=== PATIENT | male | born 1950 | race Hispanic/Latino ===

== ENCOUNTER 2016-08-27 15:38 | Inpatient (IN) | payer MEDICARE, MEDICAID ==
[~2016-08-27] VITALS: Ht 165.1 cm; Wt 74.6 kg
[2016-08-27] VITALS (7 sets, daily range): BP systolic 97–118; BP diastolic 35–62; PULSE 86–122; RESP 14–24; O2SAT 97–99
[~2016-08-27 15:38] MED LIST: ALBU8.5H2 INH; ASPI-973 PO; CLOP75TA28 PO; CRES20T PO; GLIP2.5T2 PO; GLIP5TAB26 PO; LISI30TA5 PO; METF-413 PO; NIAC10002 PO; NITR0.4T SL; PANT20TA2 PO; RANI300T4 PO; SYMINH INH; TIOT18CA3 INH
[2016-08-27] MEDS ORDERED: 0.9% Sodium Chloride 1,000 ML IV ONE ×4 (15:46→22:05)
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
[2016-08-27 16:15] LABS: BASOPHILS % (AUTO) 0.1 % (0-3); EOSINOPHILS % (AUTO) 0 % (0-5)
[2016-08-27 16:22] LABS: MONOCYTES % (AUTO) 4.6 % (4-12); Mean Corpuscular Hemoglobin 24.2 pg (27.0-35.0); Mean Corpuscular Volume 76.3 fL (81-100); NEUTROPHILS % (AUTO) 92.3 % (40-74); Platelet Count 383 bil/L (150-400)
[2016-08-27 16:43] LABS: TROPONIN T < 0.010 ug/L (0.0-0.011)
--- NOTE | 2016-08-27 16:54 | DRSVH ---
PROCEDURE: X-RAY CHEST ONE VIEW, PORTABLE ([id number]) INDICATIONS: dyspnea TECHNIQUE: One view of the chest was acquired. COMPARISON: [facility], CR, XR CHEST 1VW (PORTABLE), 04/14/2016, 15:08. FINDINGS: Surgical changes and devices: None. Lungs and pleura: No pleural effusions or pneumothorax. Lungs are clear. Mediastinum: Mediastinal contours appear normal. Heart size is normal. Bones and chest wall: No suspicious bony lesions. Overlying soft tissues appear unremarkable. IMPRESSION: No acute pulmonary process. Dictated by: Esther Vazquez M.D. on 08/27/2016 at 16:51 Approved by: Esther Vazquez M.D. on 08/27/2016 at 16:51
[2016-08-27] MEDS ORDERED: Piperacillin-Tazo 3.375 Gm Inj 3.375 GM in Dextrose 5% Minibag Plus 50 ML IV ONE (17:50)
[2016-08-27 18:09] LABS: APPEARANCE,URINE CLEAR (CLEAR,HAZY); COLOR,URINE YELLOW (YELLOW); OCCULT BLOOD,URINE NEGATIVE (NEGATIVE); UROBILINOGEN,URINE NORMAL (NORMAL)
[2016-08-27] MEDS ORDERED: HYDROmorphone 1 mg/mL Inj IVPUSH PRN (19:00)
[2016-08-27] MEDS ORDERED: HYDROmorphone 1 mg/mL Inj IVPUSH ONE (19:00)
--- NOTE | 2016-08-27 19:16 | DRSVH ---
PROCEDURE: CT ABDOMEN AND PELVIS WITH CONTRAST ([id number]) INDICATIONS: severe abd pain TECHNIQUE: After the administration of intravenous contrast, 5 mm thick sections acquired from the diaphragm to the symphysis. 5 mm coronal and sagittal reformats were acquired. For radiation dose reduction, the following was used: automated exposure control, adjustment of mA and/or kV according to patient rachel e. COMPARISON: [facility], CT, CT CHEST ABD PELVIS W CON, 08/18/2015, 23:02. FINDINGS: Image quality: Excellent. ABDOMEN: Lung bases: Consolidation noted in the left lung base which represent atelectasis versus less likely pneumonia or aspiration. Please correlate with clinical and laboratory data. Heart size is normal. Solid organs: Liver and spleen are normal in size and enhancement. Pneumobilia noted possibly relate d to prior sphincterotomy versus infection; please correlate with clinical history. Gallbladder is benz rgically absent. Biliary stent is displaced and now is in the proximal loop of jejunum. Biliary syste m is non dilated. Pancreas enhances normally. Bilateral adrenal nodules not significantly changed co mpared to prior CT scan obtained 08/18/2015. Kidneys demonstrate normal size and enhancement, withou t hydronephrosis. Peritoneum and bowel: Moderate size hiatal hernia is noted. Percutaneous jejunostomy tube is noted. Postsurgical changes compatible with possible Whipple procedure are noted. Inflammatory changes ar e noted adjacent to the second portion of the duodenum and the pancreatic head which could be post pr ocedural, neoplastic or infectious. Nodes and vessels: No retroperitoneal or mesenteric adenopathy by size criteria. Aorta and inferior vena cava are normal in size. Miscellaneous: No ventral hernias. PELVIS: Genitourinary: Bladder wall thickness is normal. Miscellaneous: No inguinal hernias or adenopathy. Bones: No suspicious bony lesions. No vertebral body compression fractures. IMPRESSION: 1. Postsurgical changes compatible with possible Whipple procedure. 2. Inflammatory changes adjacent to the second portion of the duodenum, in the mena hepatis and inv olving the head of the pancreas which could be postsurgical, infectious or less likely neoplastic. P lease correlate clinical data. 3. Pneumobilia likely related to prior sphincterotomy. 4. Biliary stent is displaced and is now positioned in proximal loop of jejunum. No biliary dilatat ion identified in the current study. 5. Heterogeneous enhancement involving the head of the pancreas which could be surgical neoplasm or postsurgical. 6. Left lower lobe consolidation compatible atelectasis versus pneumonia. Please correlate with cli nical and laboratory data. 7. Hiatal hernia. 8. Stable bilateral adrenal nodules. Dictated by: Rose Miller MD, PhD on 08/27/2016 at 19:14 Approved by: Rose Miller MD, PhD on 08/27/2016 at 19:14
[2016-08-27] MEDS ORDERED: Budesonide-Formot 160-4.5 mCg 6.9 Gm Inhaler INHALATION ONE (20:30)
[2016-08-27] MEDS ORDERED: Albuterol-Ipratropium 3 mL Inhalation Solution NEB ONE (20:30)
[2016-08-27] MEDS ORDERED: Fluticasone-Salmererol 250-50 Inhaler INHALATION ONE (20:45)
[2016-08-28] VITALS (12 sets, daily range): BP systolic 110–120; BP diastolic 64–72; PULSE 48–99; RESP 16–20; O2SAT 96–100
[2016-08-28] MEDS ORDERED: Alum-Mag Hydrox-Simeth 30 mL Suspension PO PRN (01:25)
[2016-08-28] MEDS ORDERED: Ondansetron 2 mg/mL 2 mL Inj IVPUSH PRN (01:25)
[2016-08-28] MEDS ORDERED: Polyethylene Glycol (PEG) 17 Gm Powder PO PRN (01:25)
[2016-08-28] MEDS: Albuterol-Ipratropium 3 mL Inhalation Solution NEB PRN ×4 (02:06→23:31)
[2016-08-28] MEDS: Insulin Human REGular 300 Unit/3 mL Inj SUBQ SCH ×4 (02:30→23:31)
[2016-08-28] MEDS: Piperacillin-Tazo 3.375 Gm Inj 3.375 GM in Dextrose 5% Minibag Plus 50 ML IV SCH ×3 (02:49→19:39)
[2016-08-28] MEDS ORDERED: FENT1PAT7 TRANSDERM (03:56)
[2016-08-28] MEDS ORDERED: INSU100V7 SUBQ (03:56)
[2016-08-28] MEDS ORDERED: [UNRECOGNIZED DRUG - CODE] PEG (03:56)
[2016-08-28] MEDS ORDERED: ATOR80TA PO (03:56)
[2016-08-28] MEDS ORDERED: INSLIS SUBQ (03:56)
[2016-08-28] MEDS ORDERED: FLUT1AER IH ×2 (03:56→09:55)
[2016-08-28] MEDS ORDERED: OXYC-474 PO (03:56)
[2016-08-28] MEDS ORDERED: ALBU2.5V4 INHALATION (03:56)
[2016-08-28] MEDS ORDERED: NICO1PAT16 TRANSDERM (03:56)
[2016-08-28] MEDS ORDERED: ZOF8 PO (03:56)
[2016-08-28] MEDS ORDERED: PROM25SU46 RC (03:56)
[2016-08-28] MEDS ORDERED: [UNRECOGNIZED DRUG - OTHER] PEG (03:56)
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
[2016-08-28 05:58] LABS: BASOPHILS % (AUTO) 0.2 % (0-3); EOSINOPHILS % (AUTO) 1.8 % (0-5); MONOCYTES % (AUTO) 7.5 % (4-12); Mean Corpuscular Hemoglobin 24.2 pg (27.0-35.0); Mean Corpuscular Volume 78.4 fL (81-100); Platelet Count 321 bil/L (150-400)
[2016-08-28 06:13] LABS: Magnesium 1.6 mg/dL (1.6-2.6)
--- NOTE | 2016-08-28 06:59 | PCM.CONPHA ---
Subjective Date of Service: Aug 28, 2016 Requesting Provider: Ari Abreu MD shortness of breath History of Present Illness pneumonia Reason for Pharmacy Consult: Vancomycin Dosing Objective Vital Signs Date Time Temp Pulse Resp B/P Pulse Ox O2 Delivery O2 Flow Rate FiO2 08/28/16 05:10 36.6 71 18 115/71 100 Nasal Cannula 2.00 08/28/16 04:47 69 08/28/16 02:09 48 Nasal Cannula 5.00 08/28/16 02:00 Supplement Oxygen 08/28/16 01:16 36.8 80 18 120/72 98 Nasal Cannula 2.00 08/27/16 21:34 86 18 105/62 97 Nasal Cannula 2 08/27/16 21:16 88 16 99 Nasal Cannula 6 08/27/16 20:22 96 18 101/35 99 Nasal Cannula 2 08/27/16 19:27 101 14 99/35 98 Room Air 08/27/16 17:42 117 18 97/47 97 Room Air 08/27/16 16:34 113 19 102/46 97 Nasal Cannula 2 08/27/16 15:40 37.1 122 24 118/57 99 Nasal Cannula 2 Intake and Output 08/26/16 08/27/16 08/28/16 00:00 00:00 00:00 Intake Total 3000 ml Balance 3000 ml Weight (Kilograms): 74.600 Height (Feet): 5 Height (Inches): 5.00 Test 08/27/16 16:02 08/27/16 17:50 08/27/16 19:13 08/27/16 22:27 D-Dimer 3.2mg/L (<0.50) Troponin T < 0.010ug/L (0.0-0.011) Pro-B-Type Natriuretic Peptide 176.1pg/mL (0-376) Procalcitonin 0.35ng/mL (See Comment) Hold Rodas Top Tube Received (Received) Urine Color Yellow (YELLOW) Urine Appearance Clear (CLEAR,HAZY) Urine pH 6.0 (5.0-8.0) Urine Specific Purvis 1.010 (1.003-1.035) Urine Protein Negativemg/dL (NEG,TRACE) Urine Glucose (UA) Negativemg/dL (NEGATIVE) Urine Ketones Negativemg/dL (NEGATIVE) Urine Occult Blood Negative (NEGATIVE) Urine Nitrite Negative (NEGATIVE) Urine Bilirubin Negative (NEGATIVE) Urine Urobilinogen Normalmg/dL (NORMAL) Urine Leukocyte Esterase Negative (NEGATIVE) Urine RBC 0-2/hpf (0-2) Urine WBC 0-5/hpf (0-5) Urine Epithelial Cells Few/hpf (NONE-MOD) Urine Crystals None seen (NONE SEEN) Urine Bacteria None/hpf (NONE-FEW) Urine Hyaline Casts None/lpf (NONE) Urine Granular Casts None seen (NONE SEEN) Urine Waxy Casts None seen (NONE SEEN) Urine Red Blood Cell Casts None seen (NONE SEEN) Urine White Blood Cell Casts None seen (NONE SEEN) Urine Mucus None seen (None Seen) Urine Trichomonas None seen (NONE SEEN) Urine Yeast None (NONE SEEN) Urinalysis Comment None Urine Culture Reflexed Not indicated Lipase 10U/L (13-60) Lactic Acid Level 0.6mmol/L (0.4-2.0) Test 08/28/16 04:55 White Blood Count 15.2th/mm3 (3.8-10.1) Red Blood Count 3.47mil/mm3 (4.40-5.80) Hemoglobin 8.4g/dL (13.8-17.2) Hematocrit 27.2% (41.0-50.0) Mean Corpuscular Volume 78.4fL (81-100) Mean Corpuscular Hemoglobin 24.2pg (27.0-35.0) Mean Corpuscular Hemoglobin Concent 30.9% (32.0-37.0) Red Cell Distribution Width 17.5% (12.3-15.4) Platelet Count 321bil/L (150-400) Neutrophils (%) (Auto) 78.0% (40-74) Lymphocytes (%) (Auto) 12.3% (14-46) Monocytes (%) (Auto) 7.5% (4-12) Eosinophils (%) (Auto) 1.8% (0-5) Basophils (%) (Auto) 0.2% (0-3) Sodium Level 141mEq/L (134-144) Potassium Level 3.5mEq/L (3.5-5.2) Chloride Level 106mEq/L (97-108) Carbon Dioxide Level 23mmol/L (18-29) Blood Urea Nitrogen 11mg/dL (8-27) Creatinine 0.54mg/dL (0.76-1.27) Estimat Glomerular Filtration Rate 161mL/min (>59) Glucose Level 137mg/dL (60-99) Calcium Level 8.5mg/dL (8.5-10.1) Magnesium Level 1.6mg/dL (1.6-2.6) Total Bilirubin 0.3mg/dL (0.0-1.2) Aspartate Amino Transf (AST/SGOT) 24U/L (0-50) Alanine Aminotransferase (ALT/SGPT) 24U/L (0-44) Alkaline Phosphatase 113U/L (25-160) Total Protein 5.1g/dL (6.4-8.4) Albumin 2.5g/dL (3.4-5.0) Assessment/Plan Assessment/Plan A/ - 66 y/o male patient admitted in for sepsis/pneumonia and required Vancomycin therapy for empirical coverage - Afebrile, WBC: 15.2 (25.1 at admission), blood cultures: pending - Current wt; 74.6 kg, ht: 165 cm, SCr: 0.54 mg/dL, estimated clearance (ABW ) ~ 113 ml/hr, t1/2 ~ 7 hrs - Received Vancomycin 1.5g iv once, comitant antibiotic: Zosyn - Target trough: 15-20 P/ - Give Vancomycin 1G iv q8h. Trough level ordered prior to 4th dose @0120 on 08/29. This regimen expected to produce a trough around 17. Pharmacy will continue to follow and make necessary adjustment according to patient's clinical status and labs result Thank you for consulting clinical pharmacy Grady Agee [facility], PharmD Bernice Agee Aug 28, 2016 06:59
--- NOTE | 2016-08-28 07:23 | NUR ---
Admit Pt arrived from ER to [facility] (PCC status) approx. at 0100. Admission assessment and screening completed. Med-rec updated. Pt stated family will bring home CPAP in am. POC discussed and reviewed with pt. He verbalizes understanding. VSS. No overt complications noted.
[2016-08-28] MEDS ORDERED: glipiZIDE 2.5 mg ER24 Tablet PO SCH (08:30)
[2016-08-28] MEDS: Vancomycin Dose per Pharmacist XX SCH (08:30)
[2016-08-28] MEDS: Pantoprazole 20 mg ER24 Tablet PO SCH ×2 (08:40→20:38)
[2016-08-28] MEDS: Fluticasone-Salmeterol 500-50 Inhaler INHALATION SCH ×2 (08:41→20:38)
[2016-08-28] MEDS: Tiotropium 18mcg/Cap 5 Capsule Inhaler Kit INHALATION SCH (08:41)
[2016-08-28] MEDS: Vancomycin Inj 1,000 MG in IV Premix 1 EACH IV SCH ×2 (11:10→19:39)
--- NOTE | 2016-08-28 14:50 | NUR ---
NUTRITION ASSESSMENT Assess: 66 yo M w/ sepsis and pneumonia. Pt with G tube in place and is partially dependent on tube feeds to meet nutrient needs. Pt on nocturnal feeding and takes PO oral during the day. Pt is not able to eat very much at one time d/t early satiety. Wt down 9.5 kg since previous admission in March. PMHx: Opioid dependence, NH x2, DM 2, Pancreatic cancer, Bilateral carotid artery stenosis, Kidney stones, COPD, HLD, GERD, HTN LABS: Reviewed. Cr 0.54, Glu 137, Albumin 2.5, Lipase 10 MEDICATIONS: Reviewed. DIET: Heart Healthy/Consistent Carb, No PO recorded HOME TF: Glucerna 1.2 @ 55 ml/hr (7710-5540) which provides 528 kcal/d and 27 g/d protein meeting ~30% of est needs. NUTRITION FOCUSED PHYSICAL ASSESSMENT: GI symptoms/stool: No BM recordedBraden: 21 Skin integrity: No issues reported Overall Appearance: Overweight man sitting in bed - no obvious signs of wasting ANTHROPOMETRICS: Current Wt: 74.6 kg BMI: 27.4 kg/z6Dpnxe Wt: 74.6 kg IBW: 61.8 kgRecent wt changes: 9.5 kg wt loss x4.5 months (11 % = significant) ESTIMATED NEEDS: Calories: 1965-0383 kcal/d (25-30 kcal/kg/d) Protein: 75-115 g/d (1-1.5 g/kg/d) Fluids: 8202-6979 ml/d (25-30 ml/kg/d) NUTRITION DIAGNOSIS: 1) Inability to meet nutrient needs orally as evidenced by need for supplemental TFs. INTERVENTION: 1) Glucerna 1.2 is not currently on hospital formulary and will be substituted w/ Vital 1.5 (Vital 1.5 w/ 187 g CHO per L vs Jevity 1.5 w/ 215 g CHO per L) 2) Recommend initiating nocturnal feeding w/ Vital 1.5 @ 30 ml/hr to run from 7807-1366. Once pt tolerating, recommend advancing 10 ml q 4 hrs to goal rate of 60 ml/hr + 40 ml H2O q 4 hr providing 900 kcal/d, 41 g/d protein, and 540 ml/d H2O, meeting ~50% of est needs. 3) Increasing calories/protein in TF regimen from his regimen at [facility] d/t significant wt loss and likelihood that pt is not meeting his est needs. 4) Will send Glucerna TID MONITOR/EVALUATE: PO intake, TF start/tolerance, Labs, Wt, GI, Nutrition status, POC. Will follow per high nutrition risk guidelines.
--- NOTE | 2016-08-28 17:03 | NUR ---
Social Work Initial Assessment Data & Assesment: EMR. See Initial Assessment. Global Sales Director met with patient and patient's brother, Larry Abbasi-[phone], to discuss discharge planning and SW role reviewed. Patient does not have a PCP. Patient's insurance is Medicare and [facility] as secondary. Patient reports that he was independent with ADL's prior to admission. Patient does not have SNF or HH. Patient has a cane, walker and WC. Patient plans to discharge home. Patient does not have any current needs. SW will continue to follow. Plan: Patient will return home with no needs at the current time. computer networker will continue to follow. Germain Lucio LMSW, [facility] Addendum: 08/28/16 at 1710 by GERMAIN LUCIO Amended: Links added.
--- NOTE | 2016-08-28 18:31 | PCM.PNMED ---
Subjective Date of Service Aug 28, 2016 Subjective Patient resting comfortably in bed. He is on 2 L of oxygen. He does not use oxygen normally at home. Apparently his had some kind of a upper respiratory infection. Exam Vital Signs Vital Sign - Last Date Time Temp Pulse Resp B/P Pulse Ox O2 Delivery O2 Flow Rate FiO2 08/28/16 17:02 82 18 96 Nasal Cannula 2.00 08/28/16 15:48 36.6 110/69 Intake and Output 08/27/16 08/27/16 08/28/16 Cumulative From/Thru 15:00 23:00 07:00 08/27/16 15:40 - 08/28/16 05:43 Intake Total 3000 ml 583 ml 3583 ml Balance 3000 ml 583 ml 3583 ml Intake IV Total 3000 ml 583 ml 3583 ml Exam General: Alert, Oriented X3, NAD Head: Normocephalic, atraumatic Eyes: EPIFANIO, EOMI, no scleral Icterus Chest: Coarse breath sounds throughout, no wheezing Heart: Regular rate and rhythm. Normal S1, S2, no murmurs noted Abdomen: soft, non-tender. Bowel sounds are normoactive. No guarding or rebound. Extremities: no cyanosis, clubbing or edema. IVs and Medications Medications Reviewed: Medications were reviewed in detail Lab and Diagnostics Result Diagram: 08/28/1645408/28/16454 X-Rays, CTs and MRIs X-Ray Chest Interpretation Chest Xray Interpretation: IMPRESSION: No acute pulmonary process. Ct scan IMPRESSION: 1. Postsurgical changes compatible with possible Whipple procedure. 2. Inflammatory changes adjacent to the second portion of the duodenum, in the mena hepatis and involving the head of the pancreas which could be postsurgical , infectious or less likely neoplastic. Please correlate clinical data. 3. Pneumobilia likely related to prior sphincterotomy. 4. Biliary stent is displaced and is now positioned in proximal loop of jejunum. No biliary dilatation identified in the current study. 5. Heterogeneous enhancement involving the head of the pancreas which could be surgical neoplasm or postsurgical. 6. Left lower lobe consolidation compatible atelectasis versus pneumonia. Please correlate with clinical and laboratory data. 7. Hiatal hernia. 8. Stable bilateral adrenal nodules. Assessment & Plan Patient is a 66 year old male with a pmh of pancreatic cancer, diabetes mellitus , hypertension, and GERD that is presenting with a 2 day history of malaise and shortness of breath. Patient is seen to have significant leukocytosis and atelectasis. Hypoxemic Respiratory failure: -Presumed due to HCAP pneumonia, being treated empirically with vancomycin and Zosyn. -Leukocytosis improving -Continue supplemental oxygenation. He does not use O2 at home -Continue aggressive pulmonary toilet -I will go ahead and check a PCR respiratory panel Pancreatic Ca sp whipple - Patient had a modified whipple 2 weeks ago - Has ongoing unchanged abdominal pain as reasonably expected postoperatively - Pt was getting tube feeds as well as po meals while in the [facility] -If he has a change in his condition, may consider transferring to [facility]. CAD - will c/w asa and plavix Hypertension - will hold bp meds for the time being - once patient returns to steady state will slowly reintroduce lisinopril Diabetes mellitus -Continue sliding scale insulin. CODE STATUS: Full code DVT prophylaxis: SCDs Disposition: PT consulted, suggesting he could possibly return home when medically stable. Tarik Sharma DO Aug 28, 2016 18:31
--- NOTE | 2016-08-28 19:01 | DRSVH ---
PROCEDURE: CT ANGIO CHEST PULMONARY EMBOLISM ([id number]) INDICATIONS: shock, hypoxia, post op dyspnea TECHNIQUE: After the administration of intravenous contrast, 2 mm thick sections acquired from the pulmonary api emma to the posterior costophrenic angles. 3-dimensional maximum intensity projection (MIP) coronal a nd sagittal reformats were then acquired through the thorax. For radiation dose reduction, the follo wing was used: automated exposure control, adjustment of mA and/or kV according to patient size. COMPARISON: None. FINDINGS: Image quality: Excellent. Pulmonary arteries: Pulmonary arteries are normal in size, and demonstrate no intraluminal filling d efects to suggest central pulmonary embolism. Lungs and pleura: There is airspace disease at the left base consistent with pneumonia. There may be minimal airspace disease posteriorly at the right base.. No pleural effusions or pneumothorax. Cent ral and peripheral airways are patent. Mediastinum: Heart size is normal, without pericardial effusion. No mediastinal or hilar adenopathy . Thoracic aorta is normal in caliber and enhancement. Esophagus is normal in caliber, but a modera te-sized hiatal hernia. Bones and chest wall: No suspicious bony lesions. Ribs and thoracic spine appear intact throughout. Thyroid gland is within normal limits.. No axillary or supraclavicular adenopathy. Bilateral gyne comastia is noted. Abdomen: Visualized upper abdominal solid organs appear normal in the early arterial phase of enhanc ement. IMPRESSION: 1. No evidence for pulmonary embolus. Aorta and great vessels do not show any evidence of aneurysm or dissection 2. Left lower lobe moderate to prominent patchy areas of consolidation in the basilar segments. Dictated by: Nacho Victor M.D. on 08/28/2016 at 18:59 , results were called to Dr. Sharma. Approved by: Nacho Victor M.D. on 08/28/2016 at 18:59
[2016-08-29] VITALS (10 sets, daily range): BP systolic 107–125; BP diastolic 62–73; PULSE 68–97; RESP 16–22; O2SAT 95–100
[2016-08-29] MEDS ORDERED: Vancomycin Serum Trough XX ONE ×2 (01:30→10:00)
[2016-08-29] MEDS: Insulin Human REGular 300 Unit/3 mL Inj SUBQ SCH ×4 (02:30→20:26)
[2016-08-29] MEDS: Piperacillin-Tazo 3.375 Gm Inj 3.375 GM in Dextrose 5% Minibag Plus 50 ML IV SCH ×3 (03:04→18:31)
--- NOTE | 2016-08-29 03:10 | PCM.PHAPRO ---
Progress Date of Service: Aug 29, 2016 Requesting Provider: Ari Abreu MD shortness of breath Sepsis/pneu A/ - 66 y/o male patient has been receiving 3 doses of Vancomycin (1.5G loading dose, 1g iv q8h), concurrent with Zosyn for empirical treatment for sepsis and suspected pneumonia - Blood cultures showed no growth after 24hour, MRSA screen is pending - Last 24 hours, all Vancomycin doses given an hour late than scheduled, trough drawn on time. However, patient reported little appetite and no IVF. Per night nurse, patient is planned to have NG tube placement in am today. Poor output could be the contributory factor to unexpected high trough @27.5. P/ - Hold Vancomycin dose tonight. The new regimen will follow after result of random trough level @1000 today fall under 20. Pharmacy will continue to follow and watch closely the renal clearance. Grady Agee, PharmD, [facility] Bernice Agee Aug 29, 2016 03:09
--- NOTE | 2016-08-29 06:33 | NUR ---
Labs Patient refusing am labs. States he does not want to be poked with needles this early and that they had already poked him once before. After education and discussion with patient he is agreeable to having am labs drawn with his 10am vanco trough. Will continue to educate and encourage cooperation with care.
[2016-08-29] MEDS: Fluticasone-Salmeterol 500-50 Inhaler INHALATION SCH ×2 (08:14→20:11)
[2016-08-29] MEDS: Vancomycin Dose per Pharmacist XX SCH (08:30)
[2016-08-29] MEDS: Pantoprazole 20 mg ER24 Tablet PO SCH ×2 (09:04→20:10)
[2016-08-29] MEDS: Tiotropium 18mcg/Cap 5 Capsule Inhaler Kit INHALATION SCH (09:04)
[2016-08-29 11:44] LABS: BASOPHILS % (AUTO) 0.2 % (0-3); EOSINOPHILS % (AUTO) 3.9 % (0-5); MONOCYTES % (AUTO) 6.3 % (4-12); Mean Corpuscular Hemoglobin 24.3 pg (27.0-35.0); Mean Corpuscular Volume 76.7 fL (81-100); NEUTROPHILS % (AUTO) 79.9 % (40-74); Platelet Count 317 bil/L (150-400)
--- NOTE | 2016-08-29 12:23 | PCM.PHAPRO ---
Progress Vancomycin Management by Pharmacy: -pt's trough level returned supratherapeutic at 27.5 prior to 4th dose (0130 on 08/29) on a regimen of Vancomycin 1gm iv [id number] -random level was redrawn ~ 10 am this morning and resulted as 15.2 -Plan: new dose/frequency to begin now as Vancomycin 1.25gm iv [id number] () trough level to be ordered prior to 4th dose on 08/31 at 0030 Teresa Burgos [facility] Aug 29, 2016 12:23
[2016-08-29] MEDS: Albuterol-Ipratropium 3 mL Inhalation Solution NEB PRN ×2 (12:40→19:29)
[2016-08-29] MEDS: Mupirocin 2% 22 Gm Ointment NASAL SCH ×2 (16:30→20:10)
--- NOTE | 2016-08-29 16:55 | PCM.PNMED ---
Subjective Date of Service Aug 29, 2016 Subjective Still requiring oxygen today. He denies any chest pain or excessive shortness of breath. No nausea or vomiting, diarrhea or constipation. Exam Vital Signs Vital Sign - Last Date Time Temp Pulse Resp B/P Pulse Ox O2 Delivery O2 Flow Rate FiO2 08/29/16 14:15 36.7 90 18 116/65 95 Nasal Cannula 2.00 Intake and Output 08/28/16 08/28/16 08/29/16 Cumulative From/Thru 15:00 23:00 07:00 08/27/16 15:40 - 08/29/16 06:56 Intake Total 1217 ml 400 ml 5200 ml Output Total 800 ml 900 ml 1700 ml Balance 417 ml -500 ml 3500 ml Intake Oral 770 ml 400 ml 1170 ml IV Total 447 ml 4030 ml Output Urine Total 800 ml 900 ml 1700 ml # Voids 2 2 Exam General: Alert, Oriented X3, NAD Head: Normocephalic, atraumatic Eyes: EPIFANIO, EOMI, no scleral Icterus Chest: clear to auscultation B/L, no wheezing rales or rhonchi Heart: Regular rate and rhythm. Normal S1, S2, no murmurs noted Abdomen: Mild abdominal pain to palpation, soft. Bowel sounds are normoactive. No guarding or rebound. Extremities: no cyanosis, clubbing or edema. IVs and Medications Medications Reviewed: Medications were reviewed in detail Lab and Diagnostics Result Diagram: 08/29/16 1059 08/29/16 1059 X-Rays, CTs and MRIs X-Ray Chest Interpretation Chest Xray Interpretation: IMPRESSION: No acute pulmonary process. Ct scan IMPRESSION: 1. Postsurgical changes compatible with possible Whipple procedure. 2. Inflammatory changes adjacent to the second portion of the duodenum, in the mena hepatis and involving the head of the pancreas which could be postsurgical , infectious or less likely neoplastic. Please correlate clinical data. 3. Pneumobilia likely related to prior sphincterotomy. 4. Biliary stent is displaced and is now positioned in proximal loop of jejunum. No biliary dilatation identified in the current study. 5. Heterogeneous enhancement involving the head of the pancreas which could be surgical neoplasm or postsurgical. 6. Left lower lobe consolidation compatible atelectasis versus pneumonia. Please correlate with clinical and laboratory data. 7. Hiatal hernia. 8. Stable bilateral adrenal nodules. Assessment & Plan Patient is a 66 year old male with a pmh of pancreatic cancer, diabetes mellitus , hypertension, and GERD that is presenting with a 2 day history of malaise and shortness of breath. Patient is seen to have significant leukocytosis and atelectasis. Hypoxemic Respiratory failure: -Presumed due to HCAP pneumonia, being treated empirically with vancomycin and Zosyn. -Leukocytosis improving -Continue supplemental oxygenation. He does not use O2 at home -Continue aggressive pulmonary toilet MRSA screen positive. -We will give him some mupirocin ointment nasally. Pancreatic Ca sp whipple - Patient had a modified whipple 2 weeks ago - Has ongoing unchanged abdominal pain as reasonably expected postoperatively - Pt was getting tube feeds as well as po meals while in the [facility] -If he has a change in his condition, may consider transferring to [facility]. CAD - will c/w asa and plavix Hypertension - will hold bp meds for the time being - once patient returns to steady state will slowly reintroduce lisinopril Diabetes mellitus -Continue sliding scale insulin. CODE STATUS: Full code DVT prophylaxis: SCDs Disposition: PT consulted, suggesting he could possibly return home when medically stable. Tarik Sharma DO Aug 29, 2016 16:55
[2016-08-30] MEDS ORDERED: 0.9% Sodium Chloride 250 ML ONE (00:40)
--- NOTE | 2016-08-30 02:00 | NUR ---
SKIN PATIENT CONCERNED. HAS BLEEDING FROM PRESUMED LOVENOX INJECTION SITE. APPLIED GAUZE AND TELFA. NO FURTHER BLEEDING. WILL MONITOR.
[2016-08-30] MEDS: Insulin Human REGular 300 Unit/3 mL Inj SUBQ SCH ×4 (02:30→20:23)
[2016-08-30] MEDS: Piperacillin-Tazo 3.375 Gm Inj 3.375 GM in Dextrose 5% Minibag Plus 50 ML IV SCH ×3 (02:37→18:31)
[2016-08-30] MEDS: Albuterol-Ipratropium 3 mL Inhalation Solution NEB PRN ×2 (02:39→15:32)
[2016-08-30 02:41] VITALS: PULSE 71; RESP 20; O2SAT 99
--- NOTE | 2016-08-30 05:00 | NUR ---
TUBE FEED PATIENT TOLERATED TUBE FEED. RATE 50ML AND HOUR WITH 40ML FREE WATER FLUSH EVERY FOUR HOURS. ZERO RESIDUAL.
[2016-08-30 05:28] VITALS: BP 119/66; PULSE 72; RESP 18; O2SAT 98
[2016-08-30 05:45] LABS: BASOPHILS % (AUTO) 0.3 % (0-3); EOSINOPHILS % (AUTO) 3.3 % (0-5); MONOCYTES % (AUTO) 7.1 % (4-12); Mean Corpuscular Hemoglobin 24.1 pg (27.0-35.0); Mean Corpuscular Volume 76.5 fL (81-100); NEUTROPHILS % (AUTO) 72.6 % (40-74); Platelet Count 316 bil/L (150-400)
[2016-08-30] MEDS: Fluticasone-Salmeterol 500-50 Inhaler INHALATION SCH ×2 (08:02→20:13)
[2016-08-30] MEDS: Tiotropium 18mcg/Cap 5 Capsule Inhaler Kit INHALATION SCH (08:02)
[2016-08-30] MEDS: Mupirocin 2% 22 Gm Ointment NASAL SCH ×2 (08:02→20:13)
[2016-08-30] MEDS: Vancomycin Dose per Pharmacist XX SCH (08:03)
[2016-08-30] MEDS: Pantoprazole 20 mg ER24 Tablet PO SCH ×2 (08:03→20:13)
[2016-08-30 15:01] VITALS: BP 127/64; PULSE 64; RESP 18; O2SAT 98
--- NOTE | 2016-08-30 15:06 | NUR ---
Chest Pain Called into room as patient states he is having chest pain. pt states that he is having right sided mid nipple line chest pain at rest. Pt states that its an 10/10 pain, does not radiate to neck or jaw or arms. No SOB, No lightheadedness or dizziness, pt is not diaphoretic. Pt states it hurts more when he coughs or takes a deep breathe in. Pt states that this has been going on intermittently at home for the past 2 weeks since his WHIPLE surgery. VSS. Pt states that his chest pain is decreasing slowly as I am assessing his chest pain. MD notified and aware. Called for EKG
[2016-08-30 15:33] VITALS: PULSE 77; RESP 20; O2SAT 95
--- NOTE | 2016-08-30 15:39 | NUR ---
Social Work: Continued Discharge Planning: Data & Assessment: Dispute Coordinator spoke with [facility] and they confirmed that the patient was a resident there prior to coming into the hospital and that he is able to return when discharged. SW spoke with patient and the patient states that he does want to return to [facility] when discharged. Dispute Coordinator gave [facility]. Social Work will continue to follow patient. Plan: Patient likely to discharge to [facility] when medically stable. SW will continue to follow and assist patient throughout stay. Angelia Egan, ANDREWS, ACM
--- NOTE | 2016-08-30 16:59 | PCM.PNMED ---
Subjective Date of Service Aug 30, 2016 Subjective says overall feeling better. denies any new issues/complaints Exam Vital Signs Vital Sign - Last Date Time Temp Pulse Resp B/P Pulse Ox O2 Delivery O2 Flow Rate FiO2 08/30/16 15:33 77 20 95 Room Air 08/30/16 15:01 36.8 127/64 08/29/16 17:00 2.00 Intake and Output 08/29/16 08/29/16 08/30/16 Cumulative From/Thru 15:00 23:00 07:00 08/27/16 15:40 - 08/30/16 06:21 Intake Total 1274 ml 1299 ml 7773 ml Output Total 350 ml 1100 ml 3150 ml Balance 924 ml 199 ml 4623 ml Intake Oral 660 ml 400 ml 2230 ml IV Total 614 ml 395 ml 5039 ml Tube Feeding 389 ml 389 ml Tube Irrigant 115 ml 115 ml Output Urine Total 350 ml 1100 ml 3150 ml Gastric Drainage Total 0 ml 0 ml # Voids 1 3 # Bowel Movements 1 1 General: Cooperative Eyes: Scleral Anicteric Mouth: Mucous Membr Moist/Dane Neck: Supple Chest & Lungs: Chest Wall Normal, Coarse breath sounds (mild and bibasilar) Cardiovascular: Regular Rate/Rhythm Abdomen: Non-tender, Non-distended, Normoactive bowel tones, Soft, Other ( dressing on lower abdomen at site of recent Lovenox shot) Extremities: No cyanosis/clubbing/edma bilat, Normal bilaterally, Generalized Edema, Clubbing Neurological: Grossly Neurologically Intact, Normal Speech IVs and Medications Medications Reviewed: Medications were reviewed in detail Lab and Diagnostics Result Diagram: 08/30/16 0532 08/30/16 0532 X-Rays, CTs and MRIs X-Ray Chest Interpretation Chest Xray Interpretation: IMPRESSION: No acute pulmonary process. Ct scan IMPRESSION: 1. Postsurgical changes compatible with possible Whipple procedure. 2. Inflammatory changes adjacent to the second portion of the duodenum, in the mena hepatis and involving the head of the pancreas which could be postsurgical , infectious or less likely neoplastic. Please correlate clinical data. 3. Pneumobilia likely related to prior sphincterotomy. 4. Biliary stent is displaced and is now positioned in proximal loop of jejunum. No biliary dilatation identified in the current study. 5. Heterogeneous enhancement involving the head of the pancreas which could be surgical neoplasm or postsurgical. 6. Left lower lobe consolidation compatible atelectasis versus pneumonia. Please correlate with clinical and laboratory data. 7. Hiatal hernia. 8. Stable bilateral adrenal nodules. Assessment & Plan 66 year old male with a pmh of pancreatic cancer, diabetes mellitus, hypertension, and GERD that is presenting with a 2 day history of malaise and shortness of breath. # Acute hypoxemic respiratory failure presumed due to acute pneumonia. poa. - Had recent stay at SNF and MRSA screen is positive - clinically improving on current broad Abx - c/w empiric Vancomycin and Zosyn - ID Consult for further recs regarding Abx choice upon discharge soon # acute Leukocytosis. poa. 2ndry to above. resolved # MRSA screen positive. - mupirocin ointment nasally. # Pancreatic CA s/p Whipple procedure about 1-2 months ago - was getting tube feeds as well as po meals while in the senior living - further f/u w/ surgeons at [facility] - will need to be set up with PCP upon discharge from this hospitalization as well. # History of CAD. presumed stable - c/w asa and plavix # Hypertension. stable. - continue to hold bp meds for the time being - once patient returns to steady state will slowly reintroduce lisinopril # Diabetes mellitus - Continue sliding scale insulin. - Resume home dose Lantus when increased PO intake Dispo: 1-2 days Time spent 35 min Hernan Beckford Aug 30, 2016 16:59
[2016-08-30 21:25] VITALS: BP 123/78; PULSE 72; RESP 20; O2SAT 97
[2016-08-31] VITALS (7 sets, daily range): BP systolic 105–137; BP diastolic 56–71; PULSE 52–89; RESP 17–20; O2SAT 97–99
[2016-08-31] MEDS ORDERED: Vancomycin Serum Trough XX ONE ×2 (00:30→12:00)
[2016-08-31] MEDS: Insulin Human REGular 300 Unit/3 mL Inj SUBQ SCH ×4 (00:32→20:30)
[2016-08-31] MEDS: Piperacillin-Tazo 3.375 Gm Inj 3.375 GM in Dextrose 5% Minibag Plus 50 ML IV SCH ×3 (02:00→17:41)
[2016-08-31] MEDS: Albuterol-Ipratropium 3 mL Inhalation Solution NEB PRN ×3 (06:30→21:37)
[2016-08-31 07:30] LABS: Mean Corpuscular Hemoglobin 23.9 pg (27.0-35.0); Mean Corpuscular Volume 76.1 fL (81-100)
[2016-08-31 07:51] LABS: Magnesium 1.8 mg/dL (1.6-2.6)
[2016-08-31] MEDS: Tiotropium 18mcg/Cap 5 Capsule Inhaler Kit INHALATION SCH (08:17)
[2016-08-31] MEDS: Fluticasone-Salmeterol 500-50 Inhaler INHALATION SCH ×2 (08:17→21:14)
[2016-08-31] MEDS: Pantoprazole 20 mg ER24 Tablet PO SCH ×2 (08:17→21:15)
[2016-08-31] MEDS: Mupirocin 2% 22 Gm Ointment NASAL SCH ×2 (08:18→21:15)
--- NOTE | 2016-08-31 09:37 | NUR ---
Refusing Lovenox Pt. declined Lovenox, stated it caused bleeding of his RLQ injection site. RLQ dressing removed and changed. No active bleeding, site was clean and dry. Dr. Evans was made aware of pt's refusal of Lovenox.
--- NOTE | 2016-08-31 09:49 | NUR ---
Potassium 3.3 [address] Beckford was notified and he will review/order medications/
[2016-08-31] MEDS: Vancomycin Dose per Pharmacist XX SCH (13:11)
--- NOTE | 2016-08-31 15:52 | NUR ---
NUTRITION FOLLOW UP Assess: 66 YO M with sepsis and pneumonia. Pt with G-tube in place and is partially dependent on tube feeds to meet nutrient needs. Pt on nocturnal feeding and takes PO oral during the day. Pt is not able to eat very much at one time d/t early satiety. TF at goal of 60 ml/hr. PMHx: Opioid dependence, CA x2, DM 2, Pancreatic cancer, Bilateral carotid artery stenosis, Kidney stones, COPD, HLD, GERD, HTN LABS: Reviewed.K+ 3.3, BUN 7, Cr 0.43, Glu 133 MEDICATIONS: Reviewed. DIET: Heart Healthy/Consistent Carb, PO refusal-50%. HOME TF: Glucerna 1.2 @ 55 ml/hr (8335-4713) which provides 528 kcal/d and 27 g/d protein meeting ~30% of est needs. CURRENT TF: Vital 1.5 at 60 ml/hr running 0895-7019, providing 900 kcal/d, 41 g/d protein, and 540 ml/d H2O, meeting ~50% of est needs. GI: No BM recorded SKIN: No issues reported ANTHROPOMETRICS: Current Wt: 74.6 kg, BMI: 27.4 kg/m2,Admit Wt: 74.6 kg, IBW: 61.8 kg. Recent wt changes: 9.5 kg wt loss x 4.5 months (11 % = significant) ESTIMATED NEEDS: Calories: 8386-2674 kcal/d (25-30 kcal/kg/d) Protein: 75-115 g/d (1-1.5 g/kg/d) Fluids: 9933-3004 ml/d (25-30 ml/kg/d) NUTRITION DIAGNOSIS: 1) Inability to meet nutrient needs orally as evidenced by need for supplemental TFs.---PERSISTS. INTERVENTION: 1) Continue current TF as ordered. 2) Increasing calories/protein in TF regimen from his regimen at [facility] d/t significant wt loss and likelihood that pt is not meeting his est needs. 3) Continue current diet and Glucerna TID MONITOR/EVALUATE: PO intake, TF tolerance, Labs, Wt, GI, Nutrition status, POC. Follow per high nutrition risk guidelines.
--- NOTE | 2016-08-31 16:09 | PCM.PNMED ---
Subjective Date of Service Aug 31, 2016 Subjective continues to have some cough and SOB Exam Vital Signs Vital Sign - Last Date Time Temp Pulse Resp B/P Pulse Ox O2 Delivery O2 Flow Rate FiO2 08/31/16 14:50 89 18 99 Room Air 08/31/16 14:31 36.5 128/71 08/29/16 17:00 2.00 Intake and Output 08/30/16 08/30/16 08/31/16 Cumulative From/Thru 15:00 23:00 07:00 08/27/16 15:40 - 08/31/16 05:23 Intake Total 480 ml 1388 ml 9641 ml Output Total 1400 ml 4550 ml Balance -920 ml 1388 ml 5091 ml Intake Oral 480 ml 2710 ml IV Total 774 ml 5813 ml Tube Feeding 614 ml 1003 ml Tube Irrigant 115 ml Output Urine Total 1400 ml 4550 ml Gastric Drainage Total 0 ml # Voids 3 # Bowel Movements 0 1 Exam General: Cooperative Eyes: Scleral Anicteric Mouth: Mucous Membr Moist/[place] Neck: Supple Chest & Lungs: Chest Wall Normal, Coarse breath sounds (mild and bibasilar) Cardiovascular: Regular Rate/Rhythm Abdomen: Non-tender, Non-distended, Normoactive bowel tones, Soft, Other ( dressing on lower abdomen at site of recent Lovenox shot) Extremities: No cyanosis/clubbing/edema bilat, Neurological: Grossly Neurologically Intact, Normal Speech IVs and Medications Medications Reviewed: Medications were reviewed in detail Lab and Diagnostics Result Diagram: 08/31/16 0710 08/31/16 0710 X-Rays, CTs and MRIs X-Ray Chest Interpretation Chest Xray Interpretation: IMPRESSION: No acute pulmonary process. Ct scan IMPRESSION: 1. Postsurgical changes compatible with possible Whipple procedure. 2. Inflammatory changes adjacent to the second portion of the duodenum, in the mena hepatis and involving the head of the pancreas which could be postsurgical , infectious or less likely neoplastic. Please correlate clinical data. 3. Pneumobilia likely related to prior sphincterotomy. 4. Biliary stent is displaced and is now positioned in proximal loop of jejunum. No biliary dilatation identified in the current study. 5. Heterogeneous enhancement involving the head of the pancreas which could be surgical neoplasm or postsurgical. 6. Left lower lobe consolidation compatible atelectasis versus pneumonia. Please correlate with clinical and laboratory data. 7. Hiatal hernia. 8. Stable bilateral adrenal nodules. Assessment & Plan 66 year old male with a pmh of pancreatic cancer, diabetes mellitus, hypertension, and GERD that is presenting with a 2 day history of malaise and shortness of breath. # Acute hypoxemic respiratory failure presumed due to acute pneumonia. poa. - Had recent stay at SNF and MRSA screen is positive - clinically improving on current broad Abx - c/w empiric Vancomycin and Zosyn - ID Consulted for further recs regarding Abx choice upon discharge soon # acute Leukocytosis. poa. 2ndry to above. resolved # MRSA screen positive. - mupirocin ointment nasally. # Acute hypokalemia. no poa. - replete and f/u # Pancreatic CA s/p Whipple procedure about 1-2 months ago - was getting tube feeds as well as po meals while in the long-term - further f/u w/ surgeons at [facility] - will need to be set up with PCP upon discharge from this hospitalization as well. # History of CAD. presumed stable - c/w asa and plavix # Hypertension. stable. - continue to hold bp meds for the time being - once patient returns to steady state will slowly reintroduce lisinopril # Diabetes mellitus - Continue sliding scale insulin. - Resume home dose Lantus when increased PO intake Dispo: 1-2 days Time spent 35 min Hernan Beckford Aug 31, 2016 16:09
[2016-08-31] MEDS ORDERED: Potassium Chloride 20 mEq SR Tablet PO ONE (16:10)
[2016-08-31] MEDS ORDERED: KCl 40 mEq/D5W 500 mL 40 MEQ in IV Premix 500 EACH IV ONE (16:10)
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
[2016-09-01] MEDS: Piperacillin-Tazo 3.375 Gm Inj 3.375 GM in Dextrose 5% Minibag Plus 50 ML IV SCH ×2 (02:55→10:16)
[2016-09-01] MEDS: Insulin Human REGular 300 Unit/3 mL Inj SUBQ SCH ×2 (03:07→08:30)
[2016-09-01 06:28] VITALS: BP 127/68; PULSE 80; RESP 17; O2SAT 95
--- NOTE | 2016-09-01 07:21 | NUR ---
care update patient anxious about his tube feed rate states "it can't be any faster than 50ml an hour. i'll get a stomach ache." attempted to explain to patient the nutritional assessment. patient noncompliant with listening. rate at 50. tolerated through the night. turned off at 0700
[2016-09-01] MEDS: Albuterol-Ipratropium 3 mL Inhalation Solution NEB PRN (07:54)
[2016-09-01 07:55] VITALS: PULSE 73; RESP 18; O2SAT 97
[2016-09-01] MEDS: Fluticasone-Salmeterol 500-50 Inhaler INHALATION SCH (09:04)
[2016-09-01] MEDS: Mupirocin 2% 22 Gm Ointment NASAL SCH (09:05)
[2016-09-01] MEDS: Pantoprazole 20 mg ER24 Tablet PO SCH (10:14)
[2016-09-01 10:43] VITALS: BP 108/70; PULSE 64; RESP 18; O2SAT 97
[2016-09-01] MEDS ORDERED: OXYC-474 PO (12:28)
[2016-09-01] MEDS ORDERED: FENT1PAT7 TRANSDERM (12:28)
--- NOTE | 2016-09-01 12:37 | PCM.DIMED ---
Discharge Instructions Date of Service Sep 01, 2016 Dates of Hospitalization Aug 27, 2016 at 22:55 Discharge Diagnosis Discharge Diagnosis # Acute hypoxemic respiratory failure presumed due to acute pneumonia. present on admission. Improved. # Acute Leukocytosis due to above. present on admission. Resolved # MRSA screen positive. Being treated with Bactroban. # Acute hypokalemia. not present on admission. # History of Pancreatic cancer post Whipple procedure # History of CAD. presumed stable # Hypertension. stable. # Diabetes mellitus - HgA1C 6.6 Diet Low fat, Low Sodium, Heart Healthy, Diabetic Activity Other (as tolerated and per physical therapy) Call your provider Fever or Chills, Shortness of breath, Bleeding, Chest pain, Vomitting Patient Instructions Follow-up plan 1. Followup with primary care provider (Dr. Hernandez) in 7-[address] [id number] 2. Followup with your surgeons as previously scheduled. Follow-up Provider: Steve Hernandez DO Follow-up with PCP in: 1 week Hernan Beckford Sep 01, 2016 12:37
[2016-09-01] MEDS ORDERED: MUPI22OI2 NASAL (12:39)
[2016-09-01] MEDS ORDERED: DOXY100T2 PO (12:57)
--- NOTE | 2016-09-01 13:26 | PROG NOTE ---
[address] [address] PROGRESS NOTE PATIENT: PATTI HUMMEL : 1950 MR#: [id number] ADMIT: 08/27/2016 JOB ID: [id number] DATE: 09/01/2016 INFECTIOUS DISEASE FOLLOW UP NOTE: REASON FOR FOLLOWUP: Possible pulmonary infection with leukocytosis. INTERVAL HISTORY: Overnight, the patient reports his breathing has been relatively stable and he has had only some very minimal shortness of breath. No wheezing or coughing that he has noted. No fevers, chills or sweats. PHYSICAL EXAMINATION: Reveals a gentleman who has been consistently afebrile through his five days here in the hospital, now 36.7, pulse 64, respiratory rate 18, blood pressure 108/70, saturating well on room air. Examination of the oral cavity unremarkable. Lungs quite clear posteriorly. Cardiac tones without change. Abdomen is notable for the presence of the feeding tube. There is an area of anesthesia over the right abdomen which has occurred following his Whipple's two months ago. Otherwise no notable abnormalities. No skin rash noted. LABORATORIES: Yesterday include a white count of 8000. Procalcitonin done today again was 0 and that is two measurements of 0 in a row. Urine Legionella and pneumococcal antigens are negative. Respiratory viral panel negative. MRSA screen of the nares was positive and blood cultures have been negative. No new imaging has been done. IMPRESSION: This is an unusual case of a gentleman who presented with severe shortness of breath which he attributed to his underlying asthma and inadequate treatment at a rehabilitation facility, where he has been convalescing from his Whipple procedure. When he was seen in the ED because of this possible recurrent asthma exacerbation, his white count was found to be quite high without a good explanation and he was started on broad-spectrum antibiotics and thoroughly worked up. Workup for a CT scan did not show definitive evidence of pneumonia and a workup for typical causes of pneumonia was negative except for the MRSA screen which was positive in this recently hospitalized patient. The patient continues this morning to looks nontoxic and free of any and all symptoms really and the plan is for him to transfer back to the half-way facility for additional postop rehab. RECOMMENDATIONS: 1. We can discontinue his IV antibiotics at the time of transfer. 2. I would complete a course of doxycycline and perhaps give him about five more days 100 b.i.d. of doxy plus continue the nasal Bactroban to complete a 10 day course which will also be about five more days. 3. This case discussed in person with the patient, his and Dr. Beckford. 4. ID will go ahead and sign off.
--- NOTE | 2016-09-01 13:44 | NUR ---
Social Work Discharge D: EMR Reviewed. Pt is on day 5 of hospitalization for Septic, Pneumonia. Pt is medically stable and discharging to [facility] with Dr. Dugan to follow. Pt had a recent stay at [facility] and had returned home. Pt eager to return to continue care, including his tube feeds. SW met with Pt at bedside and updated on d/c plan for today and arranged transport through [facility]. Ppwk complete and faxed, originals sent with Pt. All parties updated and agreeable to plan. A: Pt who had a previous stay at [facility] P: Pt is medically stable and discharging to [facility] with Dr. Dugan to follow. Pt had a recent stay at [facility] and had returned home. Pt eager to return to continue care, including his tube feeds. LISA met with Pt at bedside and updated on d/c plan for today and arranged transport through [facility]. Ppwk complete and faxed, originals sent with Pt. All parties updated and agreeable to plan. PATRICIA Dan
--- NOTE | 2016-09-01 18:10 | PCM.DC.MED ---
Discharge Summary Date of Service Sep 01, 2016 Dates of Hospitalization Date of Hospital Admission Aug 27, 2016 at 22:55 Date of Discharge: Sep 01, 2016 Providers: Admitting Physician: Ari Abreu MD Primary Care Physician: Ramon Attending Physician: Ari Abreu MD Diagnosis at Time of Discharge Diagnosis at Time of Discharge # Acute hypoxemic respiratory failure presumed due to acute pneumonia. present on admission. Improved. # Acute Leukocytosis due to above. present on admission. Resolved # MRSA screen positive. Being treated with Bactroban. # Acute hypokalemia. not present on admission. # History of Pancreatic cancer post Whipple procedure # History of CAD. presumed stable # Hypertension. stable. # Diabetes mellitus - HgA1C 6.6 Consultations 1. ID Procedures XRay, CTs & MRIs Date of Service: 08/27/16 1546 PROCEDURE: X-RAY CHEST ONE VIEW, PORTABLE ([id number]) IMPRESSION: No acute pulmonary process. Dictated by: Esther Vazquez M.D. on 08/27/2016 at 16:51 Approved by: Esther Vazquez M.D. on 08/27/2016 at 16:51 Date of Service: 08/27/16 1803 PROCEDURE: CT ABDOMEN AND PELVIS WITH CONTRAST ([id number]) IMPRESSION: 1. Postsurgical changes compatible with possible Whipple procedure. 2. Inflammatory changes adjacent to the second portion of the duodenum, in the mena hepatis and involving the head of the pancreas which could be postsurgical , infectious or less likely neoplastic. Please correlate clinical data. 3. Pneumobilia likely related to prior sphincterotomy. 4. Biliary stent is displaced and is now positioned in proximal loop of jejunum. No biliary dilatation identified in the current study. 5. Heterogeneous enhancement involving the head of the pancreas which could be surgical neoplasm or postsurgical. 6. Left lower lobe consolidation compatible atelectasis versus pneumonia. Please correlate with clinical and laboratory data. 7. Hiatal hernia. 8. Stable bilateral adrenal nodules. Dictated by: Rose Miller MD, PhD on 08/27/2016 at 19:14 Approved by: Rose Miller MD, PhD on 08/27/2016 at 19:14 Date of Service: 08/27/161945 PROCEDURE: CT ANGIO CHEST PULMONARY EMBOLISM ([id number]) IMPRESSION: 1. No evidence for pulmonary embolus. Aorta and great vessels do not show any evidence of aneurysm or dissection 2. Left lower lobe moderate to prominent patchy areas of consolidation in the basilar segments. Dictated by: Nacho Victor M.D. on 08/28/2016 at 18:59 , results were called to Dr. Sharma. Approved by: Nacho Victor M.D. on 08/28/2016 at 18:59 Brief History As noted in H&P by Dr. Abreu: Patient is a 66 year old male with a pmh as out lined below that is presenting with cough, shortness of breath and hypotension. Patient has a recent history of pancreatic cancer in which he underwent a modified whipples procedure. Patient tolerated the procedure well and was sent to a snf for recovery and rehabilitation. Patient additionally needed assistance with his occasional tube feeding. Patient was doing well in the snf, however patient claims that he did not have full access to his nebulizer and was unable to provide himself with nebulizer treatments as he needed. Patient was able to ambulate appropriately and had no difficulty with weakness or imbalance. Patient yesterday noticed that he was developing a slight cough and he was getting easily short of breath. Patient this morning was seen to be much more short of breath compared to prior and had an asthma attack. Patient was able to take his nebulizer but shortly after he had 2 more repeat asthma attacks. Each time he used his nebulizer and it resolved completely. The snf staff became worried that there might be something causing this problem and decided to have the patient sent to [facility]. Patient while in the ER was noticed to be hypotensive with a map of 67. Patient had two liters infused and his pressure has been appropriate ever since. Patient is currently stable and doing well with occasional bouts of shortness of breath. Hospital Course # Acute hypoxemic respiratory failure presumed due to acute pneumonia. poa. - Had recent stay at SNF and MRSA screen is positive - clinically improving with Abx - ID consulted who recommends stopping IV Abx given rapid improvement in signs and symptoms and to continue with 5 more days of PO Doxycyclin # acute Leukocytosis. poa. 2ndry to above. resolved # MRSA screen positive. - mupirocin ointment nasally. # Acute hypokalemia. no poa. resolved - replete # Pancreatic CA s/p Whipple procedure about 1-2 months ago - was getting tube feeds as well as po meals while in the snf - further f/u w/ surgeons at [facility] # History of CAD. presumed stable - c/w asa and plavix # Hypertension. stable. # Diabetes mellitus - Continue sliding scale insulin. - Resume home dose insulin on d/c by day of d/c reports almost resolution of his presenting symptoms. lungs CTA bilaterally and speaking in full sentences without difficulty. Exam Vital Signs (Last) Date Time Temp Pulse Resp B/P Pulse Ox O2 Delivery O2 Flow Rate FiO2 09/01/16 10:43 36.7 64 18 108/70 97 Room Air 08/29/16 17:00 2.00 Test 08/27/16 16:02 08/27/16 17:50 08/27/16 19:13 08/27/16 22:27 D-Dimer 3.2mg/L (<0.50) Troponin T < 0.010ug/L (0.0-0.011) Pro-B-Type Natriuretic Peptide 176.1pg/mL (0-376) Hold Rodas Top Tube Received (Received) Urine Color Yellow (YELLOW) Urine Appearance Clear (CLEAR,HAZY) Urine pH 6.0 (5.0-8.0) Urine Specific [place] 1.010 (1.003-1.035) Urine Protein Negativemg/dL (NEG,TRACE) Urine Glucose (UA) Negativemg/dL (NEGATIVE) Urine Ketones Negativemg/dL (NEGATIVE) Urine Occult Blood Negative (NEGATIVE) Urine Nitrite Negative (NEGATIVE) Urine Bilirubin Negative (NEGATIVE) Urine Urobilinogen Normalmg/dL (NORMAL) Urine Leukocyte Esterase Negative (NEGATIVE) Urine RBC 0-2/hpf (0-2) Urine WBC 0-5/hpf (0-5) Urine Epithelial Cells Few/hpf (NONE-MOD) Urine Crystals None seen (NONE SEEN) Urine Bacteria None/hpf (NONE-FEW) Urine Hyaline Casts None/lpf (NONE) Urine Granular Casts None seen (NONE SEEN) Urine Waxy Casts None seen (NONE SEEN) Urine Red Blood Cell Casts None seen (NONE SEEN) Urine White Blood Cell Casts None seen (NONE SEEN) Urine Mucus None seen (None Seen) Urine Trichomonas None seen (NONE SEEN) Urine Yeast None (NONE SEEN) Urinalysis Comment None Urine Culture Reflexed Not indicated Lipase 10U/L (13-60) Lactic Acid Level 0.6mmol/L (0.4-2.0) Test 08/28/16 02:05 08/28/16 04:55 08/30/16 05:32 08/31/16 07:10 Hold Urine Received (Received) Hemoglobin A1c 6.6% (4.8-5.6) Total Bilirubin 0.3mg/dL (0.0-1.2) Aspartate Amino Transf (AST/SGOT) 24U/L (0-50) Alanine Aminotransferase (ALT/SGPT) 24U/L (0-44) Alkaline Phosphatase 113U/L (25-160) Total Protein 5.1g/dL (6.4-8.4) Albumin 2.5g/dL (3.4-5.0) Neutrophils (%) (Auto) 72.6% (40-74) Lymphocytes (%) (Auto) 16.6% (14-46) Monocytes (%) (Auto) 7.1% (4-12) Eosinophils (%) (Auto) 3.3% (0-5) Basophils (%) (Auto) 0.3% (0-3) White Blood Count 8.0th/mm3 (3.8-10.1) Red Blood Count 3.77mil/mm3 (4.40-5.80) Hemoglobin 9.0g/dL (13.8-17.2) Hematocrit 28.7% (41.0-50.0) Mean Corpuscular Volume 76.1fL (81-100) Mean Corpuscular Hemoglobin 23.9pg (27.0-35.0) Mean Corpuscular Hemoglobin Concent 31.4% (32.0-37.0) Red Cell Distribution Width 17.4% (12.3-15.4) Platelet Count 335bil/L (150-400) Magnesium Level 1.8mg/dL (1.6-2.6) Test 08/31/16 12:00 08/31/16 17:32 09/01/16 07:12 Vancomycin Level Trough 17.2mcg/mL Urine Legionella pneumophilia Ag Negative (Negative) Sodium Level 136mEq/L (134-144) Potassium Level 4.1mEq/L (3.5-5.2) Chloride Level 100mEq/L (97-108) Carbon Dioxide Level 22mmol/L (18-29) Blood Urea Nitrogen 6mg/dL (8-27) Creatinine 0.51mg/dL (0.76-1.27) Estimat Glomerular Filtration Rate 172mL/min (>59) Glucose Level 136mg/dL (60-99) Calcium Level 9.0mg/dL (8.5-10.1) Procalcitonin < 0.05ng/mL (See Comment) Discharge Medications Discharge Medications ([Diabetasource]) 55 ML PEG Q8H (Reported) Aspirin (Aspirin) 81 Mg Tablet 81 MG PO DAILY (Reported) Atorvastatin (Lipitor) 80 Mg Tablet 80 MG PO HS (Reported) Clopidogrel (Clopidogrel) 75 Mg Tablet 75 MG PO DAILY (Reported) Doxycycline Hyclate (Doxycycline Hyclate) 100 Mg Tablet 100 MG PO BID Prescribed by: SHERMAN CHRISTENSEN MD Fentanyl 25 mcg/hr Patch (Fentanyl 25 mcg/hr Patch) 1 Each Patch.td72 1 PATCH TRANSDERM Q3D Prescribed by: SHERMAN CHRISTENSEN MD Fluticasone/Vilanterol (Breo Ellipta 100-25 Mcg INH) 1 Each Aer.pow.ba 1 EACH IH DAILY (Reported) Fluticasone/Vilanterol (Breo Ellipta 100-25 Mcg INH) 1 Each Aer.pow.ba 1 EACH IH DAILY (Reported) Insulin Glargine (Lantus U100 Insulin Vial) 100 Unit/Ml Vial 45 UNIT SUBQ DAILY (Reported) Mupirocin (Mupirocin Ointment) 22 Gm Oint...g. 1 APPLIC NASAL BID Prescribed by: SHERMAN CHRISTENSEN MD Niacin (Niacin) 1,000 Mg Tablet.er 500 MG PO HS (Reported) Nicotine 21 mg/24 hr Patch (Nicotine 21 mg/24 hr Patch) 1 Each Patch.dysq 1 PATCH TRANSDERM DAILY (Reported) Ranitidine (Ranitidine) 300 Mg Tablet 300 MG PO HS (Reported) Tiotropium [place] (Spiriva) 18 Mcg Cap.w.dev 1 PUFF INH DAILY (Reported) As needed Albuterol HFA (Proair HFA) 8.5 Gm Hfa.aer.ad 2 PUFF INH Q4-6H PRN PRN For Shortness of Breath (Reported) Albuterol Neb Soln (Albuterol Neb Soln) 2.5 Mg/3 Ml Vial.neb 2.5 MG INHALATION QID PRN PRN For Shortness of Breath (Reported) Insulin Human Lispro (HumaLOG U100 Insulin Vial) 100 Unit/Ml Unit 1 UNIT SUBQ Q6H PRN PRN High Blood sugar (Reported) Check blood sugars before meals and at bedtime. Use correction factor only before meals. Blood Sugar Lispro Correction: <151, 0 units; 151-200, 1 unit; 201-250, 2 units; 251-300, 3 units; 301-350, 4 units; 351-, 400, 5 units. Over 400 call MD. Nitroglycerin SL (Nitrostat) 0.4 Mg Tab.subl 0.4 MG SL PRN For Chest Pain ( Reported) Oxycodone (Roxicodone) 5 Mg Tablet 5-10 MG PO Q4H PRN PRN For Pain Prescribed by: SHERMAN CHRSITENSEN MD Promethazine HCl (Phenergan) 25 Mg Supp.rect 12.5-25 MG RC Q6H PRN PRN For Nausea (Reported) Miscellaneous Medications Nut.tx.glucose Intolerance,Soy (Glucerna) 1 Each Bar 55 ML PEG (Reported) Followup Plan Disposition: SNF Follow-up plan 1. Followup with primary care provider (Dr. Hernandez) in 7-[address] [address] 2. Followup with your surgeons as previously scheduled. Discharge Diet: Low fat, Low Sodium, Heart Healthy, Diabetic Discharge Activity: Other (as tolerated and per physical therapy) Follow-up Provider: Steve Hernandez DO Follow-up with PCP in: 1 week Time spent 35 min copies to: Steve Hernandez Masoud Sep 01, 2016 18:10
[2016-10-16] MEDS ORDERED: LIP40 PO (09:19)
[2016-10-16] MEDS ORDERED: DIPH25CA6 PO ×2 (09:19)
[2016-10-16] MEDS ORDERED: SACC250C9 PO (09:19)
[2017-02-08] MEDS ORDERED: MS30TCR PO (09:29)
== END 2016-09-01 13:15 | DRG 189 ==
LOC: SED 15:38 → OSC 22:55
PROVIDERS: ADMIT Internal Medicine; ATTEND Internal Medicine
DX: J96.01 Acute respiratory failure with hypoxia (principal); J18.9 Pneumonia, unspecified organism; B95.62 Methicillin resistant Staphylococcus aureus infection as the cause of diseases classified elsewhere; I25.10 Atherosclerotic heart disease of native coronary artery without angina pectoris; E11.9 Type 2 diabetes mellitus without complications; F17.210 Nicotine dependence, cigarettes, uncomplicated; Z79.82 Long term (current) use of aspirin; I25.2 Old myocardial infarction; Z85.07 Personal history of malignant neoplasm of pancreas

== ENCOUNTER 2016-09-08 14:20 | Emergency (ER) | payer MEDICARE, MEDICAID ==
[~2016-09-08] VITALS: Ht 165.1 cm; Wt 70.5 kg
[~2016-09-08 14:20] MED LIST changes: +ALBU2.5V4 INHALATION; +ATOR80TA PO; -CRES20T PO; +DOXY100T2 PO; +FENT1PAT7 TRANSDERM; +FLUT1AER IH; -GLIP2.5T2 PO; -GLIP5TAB26 PO; +INSLIS SUBQ; +INSU100V7 SUBQ; -LISI30TA5 PO; -METF-413 PO; +MUPI22OI2 NASAL; +NICO1PAT16 TRANSDERM; +OXYC-474 PO; -PANT20TA2 PO; +PROM25SU46 RC; -SYMINH INH; +[UNRECOGNIZED DRUG - CODE] PEG; +[UNRECOGNIZED DRUG - OTHER] PEG
[2016-09-08 14:25] VITALS: BP 144/73; PULSE 89; RESP 20; O2SAT 97
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
[2016-09-08] MEDS ORDERED: HYDROmorphone 1 mg/mL Inj IM ONE (18:55)
[2016-10-16] MEDS ORDERED: SACC250C9 PO (09:19)
[2016-10-16] MEDS ORDERED: DIPH25CA6 PO ×2 (09:19)
[2016-10-16] MEDS ORDERED: LIP40 PO (09:19)
[2017-02-08] MEDS ORDERED: MS30TCR PO (09:29)
== END 2016-09-08 19:37 | disposition home or self-care (01) ==
LOC: SED 14:20
DX: K94.29 Other complications of gastrostomy (principal); E11.9 Type 2 diabetes mellitus without complications; I10 Essential (primary) hypertension; F17.200 Nicotine dependence, unspecified, uncomplicated; I25.2 Old myocardial infarction; I25.10 Atherosclerotic heart disease of native coronary artery without angina pectoris; J45.909 Unspecified asthma, uncomplicated; J44.9 Chronic obstructive pulmonary disease, unspecified; Z87.442 Personal history of urinary calculi; Z86.73 Personal history of transient ischemic attack (TIA), and cerebral infarction without residual deficits; Z85.07 Personal history of malignant neoplasm of pancreas; Z87.440 Personal history of urinary (tract) infections; Z79.51 Long term (current) use of inhaled steroids; Z79.4 Long term (current) use of insulin; Z79.82 Long term (current) use of aspirin; Z88.6 Allergy status to analgesic agent
CPT/HCPCS: 43760; 96372; 99284; J1170

== ENCOUNTER 2016-10-30 11:35 | Emergency (ER) | payer MEDICARE, MEDICAID ==
[~2016-10-30] VITALS: Ht 165.1 cm; Wt 70.5 kg
[~2016-10-30 11:35] MED LIST changes: -ATOR80TA PO; +DIPH25CA6 PO; +LIP40 PO; -MUPI22OI2 NASAL; -NITR0.4T SL; -PROM25SU46 RC; +SACC250C9 PO; -[UNRECOGNIZED DRUG - CODE] PEG; -[UNRECOGNIZED DRUG - OTHER] PEG
[2016-10-30 11:38] VITALS: BP 128/73; PULSE 98; RESP 18; O2SAT 99
[2016-10-30] MEDS ORDERED: OXYC10TA8 PO (11:46)
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
[2016-10-30 12:19] VITALS: BP 120/71; PULSE 78; RESP 16; O2SAT 98
[2016-10-30] MEDS ORDERED: 0.9% Sodium Chloride 1,000 ML IV ONE (12:50)
[2016-10-30] MEDS ORDERED: Ondansetron 2 mg/mL 2 mL Inj IVPUSH PRN (12:50)
[2016-10-30 13:23] LABS: BASOPHILS % (AUTO) 0.7 % (0-3); EOSINOPHILS % (AUTO) 4.2 % (0-5); Mean Corpuscular Hemoglobin 24.3 pg (27.0-35.0); Mean Corpuscular Volume 77.8 fL (81-100); NEUTROPHILS % (AUTO) 69.6 % (40-74); Platelet Count 268 bil/L (150-400)
[2016-10-30 13:51] LABS: Magnesium 1.6 mg/dL (1.6-2.6)
[2016-10-30 14:02] LABS: APPEARANCE,URINE HAZY (CLEAR,HAZY); COLOR,URINE YELLOW (YELLOW); OCCULT BLOOD,URINE NEGATIVE (NEGATIVE); UROBILINOGEN,URINE NORMAL (NORMAL)
--- NOTE | 2016-10-30 14:55 | DRSVH ---
PROCEDURE: CT ABDOMEN AND PELVIS WITH CONTRAST ([id number]) INDICATIONS: upper abd pain, h/o whipple TECHNIQUE: After the administration of intravenous contrast, 5 mm thick sections acquired from the diaphragm to the symphysis. 5 mm coronal and sagittal reformats were acquired. For radiation dose reduction, the following was used: automated exposure control, adjustment of mA and/or kV according to patient rachel paige COMPARISON: [facility], CT, CT ABD PELVIS W CON, 08/27/2016, 18:44. FINDINGS: Image quality: Excellent. ABDOMEN: Lung bases: Lung bases are clear. Heart size is normal. Solid organs: Liver and spleen are normal in size and enhancement. Gallbladder is surgically absent . Biliary system is non dilated. Pneumobilia within the left hepatic lobe is unchanged. Pancreas en hances normally. Previously seen heterogeneity within the pancreatic head and neck is no longer seen. No change in 20 mm diameter bilateral adrenal nodules. Kidneys demonstrate normal size and enhance ment, without hydronephrosis. Peritoneum and bowel: Status post Whipple procedure. Moderate to hernia. Bowel loops demonstrate nor mal wall thickness and caliber. Previously seen inflammatory fracture within the duodenum are no long er present. No free fluid or air. Normal appendix. Nodes and vessels: No retroperitoneal or mesenteric adenopathy by size criteria. Aorta and inferior vena cava are normal in size. Miscellaneous: No ventral hernias. PELVIS: Genitourinary: Bladder wall thickness is normal. Miscellaneous: No inguinal hernias or adenopathy. Bones: No suspicious bony lesions. No vertebral body compression fractures. IMPRESSION: 1. No acute process. 2. Moderate hiatal hernia. 3. No change in bilateral adrenal nodules. 4. Resolution of previously seen abnormalities involving the pancreatic head and duodenum. 5. Normal appendix. Dictated by: Cesar Paredes M.D. on 10/30/2016 at 14:49 Approved by: Cesar Paredes M.D. on 10/30/2016 at 14:54
[2016-10-30] MEDS ORDERED: ONDA4TAB9 PO (15:10)
[2016-10-30 15:29] VITALS: BP 138/67; PULSE 79; RESP 16; O2SAT 99
[2017-02-08] MEDS ORDERED: MS30TCR PO (09:29)
== END 2016-10-30 15:30 | disposition home or self-care (01) ==
LOC: SED 11:35
DX: R11.0 Nausea (principal); I25.2 Old myocardial infarction; E11.9 Type 2 diabetes mellitus without complications; J45.909 Unspecified asthma, uncomplicated; J44.9 Chronic obstructive pulmonary disease, unspecified; I25.10 Atherosclerotic heart disease of native coronary artery without angina pectoris; K21.9 Gastro-esophageal reflux disease without esophagitis; E78.5 Hyperlipidemia, unspecified; I10 Essential (primary) hypertension; F17.200 Nicotine dependence, unspecified, uncomplicated; K44.9 Diaphragmatic hernia without obstruction or gangrene; Z98.890 Other specified postprocedural states; Z86.73 Personal history of transient ischemic attack (TIA), and cerebral infarction without residual deficits; Z87.440 Personal history of urinary (tract) infections; Z86.14 Personal history of Methicillin resistant Staphylococcus aureus infection; Z79.4 Long term (current) use of insulin; Z79.82 Long term (current) use of aspirin; Z79.891 Long term (current) use of opiate analgesic; Z88.6 Allergy status to analgesic agent
CPT/HCPCS: 36415; 74177; 80053; 81000; 82948; 83690; 83735; 85025; 93005; 96360; 99285; J7030; Q9967

== ENCOUNTER 2017-02-21 12:29 | Inpatient (IN) | payer MEDICARE, MEDICAID ==
[~2017-02-21] VITALS: Ht 160 cm; Wt 71.4 kg
[~2017-02-21 12:29] MED LIST changes: -DOXY100T2 PO; -FENT1PAT7 TRANSDERM; -FLUT1AER IH; +MS30TCR PO; +ONDA4TAB9 PO; -OXYC-474 PO; +OXYC10TA8 PO; -SACC250C9 PO
[2017-02-21 12:30] VITALS: BP 94/41; RESP 22; O2SAT 92
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
[2017-02-21] MEDS ORDERED: 0.9% Sodium Chloride 1,000 ML IV ONE ×3 (13:04→13:35)
--- NOTE | 2017-02-21 13:29 | DRSVH ---
PROCEDURE: X-RAY CHEST ONE VIEW, PORTABLE ([id number]) INDICATIONS: weakness, fever TECHNIQUE: One view of the chest was acquired. COMPARISON: [facility], CR, XR CHEST 2VW, 01/22/2017, 9:14. FINDINGS: Surgical changes and devices: PICC line extends into the distal SVC or atrial caval junction.. Lungs and pleura: No pleural effusions or pneumothorax. Lungs are abnormal with right upper lobe pn eumonia. Mediastinum: Mediastinal contours appear normal. Heart size is normal. Bones and chest wall: No suspicious bony lesions. Old left-sided rib fractures again seen. Overlyi ng soft tissues appear unremarkable. IMPRESSION: Right upper lobe pneumonia, not previously present, PICC line in normal position Dictated by: Alejandro Lee M.D. on 02/21/2017 at 13:27 Approved by: Alejandro Lee M.D. on 02/21/2017 at 13:28
[2017-02-21 13:30] LABS: BASOPHILS % (AUTO) 0.5 % (0-3); EOSINOPHILS % (AUTO) 0.5 % (0-5); MONOCYTES % (AUTO) 17.3 % (4-12); Mean Corpuscular Hemoglobin 27.1 pg (27.0-35.0); Mean Corpuscular Volume 83.5 fL (81-100); NEUTROPHILS % (AUTO) 52.4 % (40-74); Platelet Count 225 bil/L (150-400)
[2017-02-21 13:32] LABS: INR 1.03 ratio
[2017-02-21] MEDS ORDERED: Cefepime Inj 2,000 MG in Dextrose 5% Minibag Plus 100 ML IV ONE (13:45)
[2017-02-21] MEDS ORDERED: Azithromycin Inj 500 MG in Dextrose 5% w/Vial Mate 250 ML IV ONE (13:45)
[2017-02-21 13:49] VITALS: BP 88/40; PULSE 100; RESP 22; O2SAT 92
[2017-02-21 13:49] LABS: TROPONIN T 0.456 ug/L (0.0-0.011)
[2017-02-21] MEDS ORDERED: Vancomycin Dose per Pharmacist XX ONE (13:50)
[2017-02-21] MEDS ORDERED: Vancomycin Inj 1,500 MG in 0.9% Sodium Chloride 500 ML IV ONE (14:00)
[2017-02-21 14:08] LABS: Magnesium 1.5 mg/dL (1.6-2.6)
[2017-02-21 14:35] LABS: APPEARANCE,URINE CLEAR (CLEAR,HAZY); COLOR,URINE YELLOW (YELLOW); OCCULT BLOOD,URINE NEGATIVE (NEGATIVE); PH,URINE 5.5 (5.0-8.0); UROBILINOGEN,URINE NORMAL (NORMAL)
[2017-02-21] MEDS ORDERED: Norepineph 8,000 mCg/250 mL NS 8,000 MCG in IV Premix 1 EACH IV PRN (14:56)
[2017-02-21] MEDS ORDERED: Ondansetron 2 mg/mL 2 mL Inj IVPUSH PRN (15:00)
[2017-02-21] MEDS ORDERED: levoFLOXacin Inj 750 MG in IV Premix 1 EACH IV SCH (15:13)
--- NOTE | 2017-02-21 15:14 | DRSVH ---
PROCEDURE: CT ANGIO CHEST PULMONARY EMBOLISM ([id number]) INDICATIONS: hypotension, elevated troponin, active CA TECHNIQUE: After the administration of intravenous contrast, 2 mm thick sections acquired from the pulmonary api emma to the posterior costophrenic angles. 3-dimensional maximum intensity projection (MIP) coronal a nd sagittal reformats were then acquired through the thorax. For radiation dose reduction, the follo wing was used: automated exposure control, adjustment of mA and/or kV according to patient size. COMPARISON: [facility], CR, XR CHEST 1VW (PORTABLE), 02/21/2017, 13:03. [facility], CR, XR CHEST 2VW, 01/22/2017, 9:14. [facility], CT, CT ANGIO CHEST PE, 08/28/2016, 18:30. FINDINGS: Image quality: Excellent. Pulmonary arteries: Pulmonary arteries are normal in size, and demonstrate no intraluminal filling d efects to suggest central pulmonary embolism. Lungs and pleura: Lungs are abnormal with dense alveolar infiltration within the right lung involvin g the upper, mid and lower thirds of the lung parenchyma predominantly posteriorly, and with an appea aashish potentially representing opportunistic infection in this patient with PICC line in place. No p leural effusions or pneumothorax. Central and peripheral airways are patent. Mediastinum: Heart size is normal, without pericardial effusion. No mediastinal or hilar adenopathy . Thoracic aorta is normal in caliber and enhancement. Esophagus is normal in caliber, without a mo derately large hiatal hernia. Bones and chest wall: No suspicious bony lesions. Ribs and thoracic spine appear intact throughout. Thyroid gland appears normal where well visualized. No axillary or supraclavicular adenopathy. Abdomen: Visualized upper abdominal solid organs appear normal in the early arterial phase of enhanc ement except at the adrenal glands which demonstrate small nearly symmetric nodules at the apex of ea ch adrenal gland measuring approximately 1.8 x 1.5 cm each.. IMPRESSION: No pulmonary embolus seen, right sided dense pneumonia pattern present as discussed abov e. Moderately large hiatal hernia behind the heart. Please also refer to dedicated abdomen/pelvis C T scanning today for further discussion. Dictated by: Alejandro Lee M.D. on 02/21/2017 at 15:08 Approved by: Alejandro Lee M.D. on 02/21/2017 at 15:12
--- NOTE | 2017-02-21 15:18 | DRSVH ---
PROCEDURE: CT ABDOMEN AND PELVIS WITH CONTRAST ([id number]) INDICATIONS: abd pain, fever TECHNIQUE: After the administration of intravenous contrast, 5 mm thick sections acquired from the diaphragm to the symphysis. 5 mm coronal and sagittal reformats were acquired. For radiation dose reduction, the following was used: automated exposure control, adjustment of mA and/or kV according to patient siz e. COMPARISON: [facility], CR, XR CHEST 1VW (PORTABLE), 02/21/2017, 13:03. [facility], CT, CT ABD PELVIS W CON, 01/01/2017, 10:07. FINDINGS: Image quality: Excellent. ABDOMEN: Lung bases: Lung bases are clear. Heart size is normal. Solid organs: Liver and spleen are normal in size and enhancement. Gallbladder has been previously resected. Biliary system is non dilated. Pancreas enhances at the pancreatic tail but the pancreati c head there is indistinct margination of the pancreatic interlobular fat and a masslike structure is stable in appearance of the pancreatic head/uncinate process junction.. No new or enlarging adrenal nodules. Kidneys demonstrate normal size and enhancement, without hydronephrosis. Peritoneum and bowel: Bowel loops demonstrate normal wall thickness and caliber. No free fluid or a ir. Nodes and vessels: No retroperitoneal or mesenteric adenopathy by size criteria. Aorta and inferior vena cava are normal in size. Miscellaneous: No ventral hernias. PELVIS: Genitourinary: Bladder wall thickness is normal. Miscellaneous: No inguinal hernias or adenopathy. Bones: No suspicious bony lesions. No vertebral body compression fractures. IMPRESSION: 1. Stable appearing bilateral 1.5 x 1.8 cm adrenal nodules. 2. Pancreatic head/uncinate junction mass. Stable in appearance over time. 3. Prior cholecystectomy. 4. No sign of intestinal obstruction or perforation found. Dictated by: Alejandro Lee M.D. on 02/21/2017 at 15:13 Approved by: Alejandro Lee M.D. on 02/21/2017 at 15:16
[2017-02-21] MEDS ORDERED: Albuterol 2.5 mg/3 mL Inhalation Solution NEB ONE (15:20)
[2017-02-21] MEDS ORDERED: Albuterol-Ipratropium 3 mL Inhalation Solution NEB ONE (15:20)
[2017-02-21 16:22] VITALS: BP 103/56; PULSE 94; RESP 20; O2SAT 97
[2017-02-21] MEDS ORDERED: _Albuterol 2.5 mg/3 mL Neb NEB PRN (16:35)
--- NOTE | 2017-02-21 16:39 | PCM.HPMED ---
Subjective Date of Service Feb 21, 2017 Primary Provider: Admitting Physician: Geronimo Pollock MD Primary Care Physician: Steve Hernandez DO Attending Physician: Geronimo Pollock MD Admit Status: From the Emergency Department, Admit to [place] Team Chief Complaint: 67-year-old man presents with history of pancreatic carcinoma presents with weakness, confusion and septic shock History of Present Illness: Patient has history of coronary artery disease, pancreatic cancer, chronic pain was in his usual state of health celebrating his birthday yesterday. He has been taking normal fluids and food intake. He received his usual chemotherapy 5 days ago. He awakened this morning this morning with normal appetite. At 11 AM he experienced acute onset nausea and vomiting. This is associated with brief diarrhea. No abdominal pain. He developed mild confusion and encephalopathy but no syncope. He presented to the emergency department where they noted encephalopathy, fever and hypotension. Patient specifically denies fevers, chills, shortness of breath, cough, abdominal pain, dysuria, headache or new focal musculoskeletal pain. He has chronic left posterior rib and abdominal pain due to his pancreatic cancer. This is unchanged. He has had no new chest pain. Review of Systems: 11 systems were reviewed, significant findings as noted in history of present illness. Allergies Coded Allergies: acetaminophen (Verified Allergy, Unknown, 02/21/17) NSAIDS (Non-Steroidal Anti-Inflamma (Verified Adverse Reaction, Mild, GI intolerance to some, tolerates diclofenac daily, 02/21/17) aspirin (Verified Adverse Reaction, Mild, GI intolerance at high doses, but tolerates low dose OK, 02/21/17) Uncoded Allergies: FISH (Allergy, Mild, Diarrhea, 04/14/16) GARLIC (Allergy, Unknown, 12/31/13) Home Medications Medication reconciliation is incomplete at this time: Tentatively Albuterol Aspirin 81 mg daily Atorvastatin 40 mg daily Clopidogrel 75 mg daily Diphenhydramine when necessary Morphine sulfate ER 30 mg every 12 hours Niacin 500 mg at bedtime Nicotine patch Ondansetron Oxycodone 10 mg 2 by mouth every 4 hours when necessary Ranitidine 300 mg at bedtime Spiriva 18 mg daily PMH # Pancreatic cancer, 03/2016. Her Dr. Anais bragg from 08/2016: Whipple surgery on July 11, 2016. 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 Hx Alcohol Use: No Hx Substance Use: No Hx Tobacco Use: Yes Smoking Status: Former Smoker Living Arrangement: with Family Exam Vital Signs Vital Sign - Last Date Time Temp Pulse Resp B/P Pulse Ox O2 Delivery O2 Flow Rate FiO2 02/21/17 16:22 94 20 103/56 97 Nasal Cannula 2 02/21/17 12:30 39.2 Exam Constitutional: appears weathered; talkative in no acute distress; vital signs noted Eyes: sclerae anicteric, no conjunctival pallor, ENMT: ears, nose atraumatic; oral mucosa very dry; poor dentition Neck: supple, JVD absent Chest: symmetric, moves with apparent thoracic pain Resp: auscultation generally clear, no wheezes, rales, egophony or dullness Cardiac: S1, S2, regular, no murmur Abdomen: bowel sounds present, tender to palpate, well-healed scar, no organomegaly : inspection no acute inflammation, sebaceous debris around penis Musculoskeletal: no joints with acute erythema, swelling Skin and soft tissues: no rash; no pitting edema Lymphatic: no adenopathy cervical Neurological: Cranial Nerves - face symmetric Reflexes - BJ, KJ symmetric reduced Motor - 5/5 strength, normal tone Coordination - normal movement, no tremor Psych & Mental Status - oriented Lab and Diagnostics Labs Lactic acid 2.8, anion gap 18 Procalcitonin 0.19 Troponin to 0.456 ProBNP normal Magnesium 1.5 Result Diagram: 02/21/17 1251 02/21/17 1251 X-Rays, CTs and MRIs PROCEDURE: X-RAY CHEST ONE VIEW, PORTABLE ([id number]) IMPRESSION: Right upper lobe pneumonia, not previously present, PICC line in normal position Dictated by: Alejandro Lee M.D. on 02/21/2017 at 13:27 PROCEDURE: CT ABDOMEN AND PELVIS WITH CONTRAST ([id number]) IMPRESSION: 1. Stable appearing bilateral 1.5 x 1.8 cm adrenal nodules. 2. Pancreatic head/uncinate junction mass. Stable in appearance over time. 3. Prior cholecystectomy. 4. No sign of intestinal obstruction or perforation found. Dictated by: Alejandro Lee M.D. on 02/21/2017 at 15:13 PROCEDURE: CT ANGIO CHEST PULMONARY EMBOLISM ([id number]) IMPRESSION: No pulmonary embolus seen, right sided dense pneumonia pattern present as discussed above. Moderately large hiatal hernia behind the heart. Please also refer to dedicated abdomen/pelvis CT scanning today for further discussion. Dictated by: Alejandro Lee M.D. on 02/21/2017 at 15:08 . 12-lead ECG 02/21/17 13:37 sinus tachycardia 100, intervals normal, QTC 468, left axis deviation -[address] changes. Assessment & Plan 67-year-old male with history of CAD, pancreatic cancer, COPD and chronic pain presents with acute septic shock. His initial symptoms were nausea and vomiting. Her status is at baseline but has clear right-sided pulmonary infiltrate. Unclear whether this is abdominal process contributing to aspiration with pneumonitis or primary community-acquired pneumonia. # Sepsis: Received 5 L of fluids in ED. Blood pressure 88/40 with heart rate 100, temperature 39.2, respiratory rate 22 on admission. Initiated on norepinephrine. - Serial lactates - Continue high rate volume resuscitation until lactate <2 - Maintain MAP greater than 65 mmHg - Strict intake and output # Infectious: Probable lobar pneumonia, possible abdominal process. Poor dentition and nausea and vomiting raise concern for aspiration pneumonia. - Vancomycin, Zosyn and levofloxacin for ICU level pneumonia sepsis - Nasal MRSA swab; discontinue vancomycin if MRSA negative # Cardiac: Hemodynamics & Rhythm - - Telemetry monitoring - Pressor support. Norepinephrine wean as tolerated. # Respiratory function - - Oxygen as needed # GI - acute nausea and vomiting, present on admission. Abdominal CT scan is unremarkable for an acute focal infection. Pancreatic cancer seems chronic, stable. Diabetes mellitus will require acute inpatient management. - Obtain GI PCR panel if he has persistent diarrhea. - Antiemetics as needed for nausea and vomiting. - Follow clinical exam for evidence of any acute GI infectious process # Diabetes and nutritional: - Diabetic diet - Inpatient diabetes management: - 4 times a day capillary blood glucose - Glucose control goals: Random less than 180, fasting less than 140, none less than 70 - Insulin as needed, divided 50-50 long-acting and nutritional/correctional # Lines, I/O's, fluids and electrolytes - hypomagnesemia 1.5 on admission. Potassium borderline 3.6 on admission. - Aggressive fluid resuscitation # Renal - serum creatinine 0.63 on admission. - Daily BMP - Goal urine output greater than 0.5 mL/KG/MR # Hematological - neutropenia with WBC 1.9, 52% neutrophil on admission. Unclear whether neutropenia is due to sepsis or his recent chemotherapy. Anemia hemoglobin 10.5 was likely chronic disease.. INR 1.03 on admission. No evidence of DIC. - Daily CBC # Neurological - initially encephalopathic emergency department. Likely due to Q metabolic encephalopathy from sepsis. Seems to be resolving at time of admission. - Monitor neurologic status with resuscitation # Pain status - - Continue his long-acting morphine -Continue breakthrough oxycodone at present while resuscitation from sepsis # Venous thromboembolism prophylaxis: -Lovenox # GI prophylaxis: - Famotidine # Goals of care, expected hospital duration, discharge planning: - Admitted to inpatient status with expectation of care greater than 48 hours - GI Prophylaxis: H2 hilary VTE Prophylaxis: Sub-Q Enoxaparin Resuscitation Status: CPR: Attempt Resuscitation Time spent 70 minutes Geronimo Pollock MD Feb 21, 2017 16:39
[2017-02-21] MEDS ORDERED: Albuterol 2.5 mg/3 mL Inhalation Solution NEB PRN (16:50)
[2017-02-21 17:07] VITALS: BP 113/53; PULSE 93; RESP 20; O2SAT 97
--- NOTE | 2017-02-21 17:21 | PCM.CONPHA ---
Assessment/Plan Assessment/Plan Pharmacy Kinetic Dosing Vancomycin Indication: SEPTIC PNEUMONIA Vanc goal trough: 15-20 mcg/mL Pt wt: 68.2 kg Other ABX: LEVAQUIN, CEFEPIME Cultures: Blood PENDING MRSA PENDING SCr: 89 mg/dL Assessment/Plan: Patient with a hx of pancreatic cancer post Whipple, COPD, CAD, DM, hyperlipidemia, HTN, stroke, and multiple MIs presenting with septic pneumonia. - Loading dose of Vancomycin 1500 mg given in ED for (22 mg/kg dosing) -Will continue Vancomycin 1250 mg Q12H (18 mg/kg dosing) with trough scheduled prior to 4th dose on 02/23/17 @0230. Patient previously had trough levels within goal range at this dosing regimen at last visit in August so will try again. Pharmacy appreciates consult and will continue to monitor. Olimpia Marquis PharmD Feb 21, 2017 17:21
[2017-02-21] MEDS ORDERED: Dextrose 10% 250 ML IV PRN (17:45)
[2017-02-21] MEDS ORDERED: Glucose 40% Oral Gel 15 Gm Tube PO PRN (17:45)
[2017-02-21] MEDS: 0.9% Sodium Chloride 1,000 ML IV SCH ×6 (18:10→23:51)
[2017-02-21] MEDS: Vancomycin Dose per Pharmacist XX SCH (18:26)
[2017-02-21] MEDS ORDERED: 0.9% Sodium Chloride 250 ML ONE (18:34)
--- NOTE | 2017-02-21 18:50 | NUR ---
Admit note: Patient admitted to room 2013 from ED at about 1700. Patient was transferred via stretcher and was transferred to CCU bed using slider board. Pt A&O X3. Pre existing 1L PICC infusing Norepi 0.05mcg/kg/min and NS 500mL/hr ( With bag labeled L #4). L arm PIV SL. Accompanied by his . Shortly after patient arrived to room patient became drowsy and falls asleep. Arouses easily but quickly falls back to sleep. Unable to complete Admit questions at this time. also unable to provide medical history stating "it should be in your computer". VSS. Will continue to monitor closely and provide report to NOC shift.
[2017-02-21] MEDS ORDERED: Magnesium Sulf 4 Gm/100 mL D5W Premix IV ONE (20:10)
[2017-02-21] MEDS ORDERED: KCl 40 mEq/100 mL (CENTRAL) 40 MEQ in IV Premix 1 EACH IV ONE (20:10)
[2017-02-21] MEDS ORDERED: 0.9% Sodium Chloride 1,000 ML IV PRN (20:13)
[2017-02-21] MEDS: Morphine ER 30 mg (MS Contin) Tablet PO SCH (20:28)
[2017-02-21 20:30] VITALS: BP 122/57; PULSE 72; RESP 21; O2SAT 100
[2017-02-21] MEDS: Insulin LISPRO 300 Unit/3 mL Inj SUBQ SCH (20:38)
[2017-02-21] MEDS ORDERED: Insulin GLARgine 100 Unit/mL Syringe SUBQ SCH (21:00)
[2017-02-21] MEDS ORDERED: Cefepime Inj 2,000 MG in Dextrose 5% Minibag Plus 100 ML IV SCH (22:30)
[2017-02-22] VITALS (9 sets, daily range): BP systolic 91–125; BP diastolic 53–67; PULSE 63–86; RESP 16–24; O2SAT 96–99
[2017-02-22] MEDS: Piperacillin-Tazo 3.375 Gm Inj 3.375 GM in Dextrose 5% Minibag Plus 50 ML IV SCH ×4 (00:41→23:13)
[2017-02-22] MEDS ORDERED: Vancomycin Inj 1,250 MG in 0.9% Sodium Chloride 250 ML IV SCH (03:00)
[2017-02-22 03:08] LABS: Magnesium 2.4 mg/dL (1.6-2.6); Phosphorus 2.3 mg/dL (2.5-4.9)
[2017-02-22 03:10] LABS: TROPONIN T 0.586 ug/L (0.0-0.011)
[2017-02-22] MEDS: 0.9% Sodium Chloride 1,000 ML IV SCH ×4 (04:16→23:12)
[2017-02-22] MEDS ORDERED: Potassium Phos (mMol) Inj 15 MMOL in Dextrose 5% 250 ML IV ONE (05:00)
[2017-02-22] MEDS ORDERED: Heparin 5,000 Unit/mL Inj IVPUSH PRN (05:05)
[2017-02-22] MEDS ORDERED: Heparin 25K Unit/500mL 0.45 NS 25,000 UNIT in IV Premix 1 EACH IV SCH (05:05)
[2017-02-22 05:21] LABS: Mean Corpuscular Hemoglobin 26.9 pg (27.0-35.0); Mean Corpuscular Volume 83.9 fL (81-100); Platelet Count 183 bil/L (150-400)
[2017-02-22 05:38] LABS: INR 1.3 ratio
[2017-02-22 05:40] LABS: NEUTROPHILS % (AUTO) 38 % (40-74)
[2017-02-22 05:41] LABS: BASOPHILS % (AUTO) 0 % (0-3); EOSINOPHILS % (AUTO) 0 % (0-5); MONOCYTES % (AUTO) 12 % (4-12)
--- NOTE | 2017-02-22 06:44 | NUR ---
Cardiac/BP: BP at being of shift was good and was able to titrate down on levophed but during the night pt's BP slowed drifted down requiring NS boluses and titrating up on the levophed. Pt has PICC to right upper arm single port originally placed for chemo infusing. Pt gets chemo once a week on mondays. Lactic acid has been trending down and troponin has been trending up. Dr Almeida started pt on heparin gtt per cardiac protocol. Pt also required mag and potassium rides for low levels.
[2017-02-22] MEDS: Insulin LISPRO 300 Unit/3 mL Inj SUBQ SCH ×4 (07:22→20:22)
[2017-02-22] MEDS: Morphine ER 30 mg (MS Contin) Tablet PO SCH ×2 (07:33→18:15)
[2017-02-22] MEDS: Vancomycin Dose per Pharmacist XX SCH (07:34)
--- NOTE | 2017-02-22 08:08 | DRSVH ---
PROCEDURE: X-RAY CHEST ONE VIEW, PORTABLE ([id number]) INDICATIONS: 67 year-old male with sepsis and left rib pain. TECHNIQUE: One view of the chest was acquired. COMPARISON: [facility], CR, XR CHEST 1VW (PORTABLE), 02/21/2017, 13:03. [facility], 01/22/2017, 9:14. [facility], CR, XR CHEST 1VW (PORTABLE), 08/27, 15:56. FINDINGS: Surgical changes and devices: Right PICC remains in expected position. Lungs and pleura: No pleural effusions or pneumothorax. The right upper lung opacities persist, with new right lower lung airspace opacities now present as well. Mediastinum: Mediastinal contours appear normal. Heart size is normal. There is aortic atheroscler osis. Bones and chest wall: No suspicious bony lesions. Nonacute left fifth through seventh rib fractures are again noted. Overlying soft tissues appear unremarkable. IMPRESSION: 1. Interval increased extent of right upper and lower lung pneumonia. 2. Nonacute left fifth through seventh rib fractures as before. Dictated by: Francisco Beebe M.D. on 02/22/2017 at 8:05 Approved by: Francisco Beebe M.D. on 02/22/2017 at 8:07
[2017-02-22] MEDS ORDERED: Potassium Chloride 20 mEq SR Tablet PO ONE (08:15)
[2017-02-22] MEDS: Albuterol 1.25 mg/3 mL Inhalation Solution NEB SCH ×3 (08:19→14:23)
[2017-02-22] MEDS ORDERED: Insulin GLARgine 100 Unit/mL Syringe SUBQ SCH (08:30)
[2017-02-22] MEDS: Albuterol HFA 200 Puff Inhaler (Vent Pts Only) INHALATION SCH ×3 (08:48→20:22)
[2017-02-22] MEDS: Tiotropium 18mcg/Cap 5 Capsule Inhaler Kit INHALATION SCH (08:48)
[2017-02-22] MEDS: Fluticasone-Salmeterol 500-50 Inhaler INHALATION SCH ×2 (08:48→20:22)
--- NOTE | 2017-02-22 10:43 | PCM.PNMED ---
Subjective Date of Service Feb 22, 2017 Subjective Overnight: Levophed titrated down, then up again due to fluctuating BP. Patient had a couple 500mls boluses and lactic acid continues to trend down. Small bump in Troponin last night and patient was started on Heparin gtt per cardiac protocol. Today: patient reports to feel well with no concern. He denies any chest pain, SOB, nausea, or vomiting. He admits to severe abdominal and back pain, but this is chronic. Exam Vital Signs Vital Sign - Last Date Time Temp Pulse Resp B/P Pulse Ox O2 Delivery O2 Flow Rate FiO2 02/22/17 08:21 67 18 99 Room Air 02/22/17 08:00 36.4 125/67 1.00 Intake and Output 02/21/17 02/21/17 02/22/17 Cumulative From/Thru 15:00 23:00 07:00 02/21/17 12:30 - 02/22/17 06:06 Intake Total 3000 ml 1080 ml 3402 ml 7482 ml Output Total 400 ml 2400 ml 2800 ml Balance 3000 ml 680 ml 1002 ml 4682 ml Intake Oral 500 ml 500 ml IV Total 3000 ml 1080 ml 2902 ml 6982 ml Output Urine Total 400 ml 2400 ml 2800 ml # Bowel Movements 0 0 Exam Constitutional: pale, jaundice, dry. Chronically ill appearance. Poor hygiene. Talkative in no acute distress. Eyes: sclerae anicteric, no conjunctival pallor, ENMT: ears, nose atraumatic; oral mucosa very dry; poor dentition Neck: supple, JVD absent Chest: symmetric, poor breathing effort with apparent thoracic pain. Auscultation difficult to appreciate due to pain, but there is mild scattered rales. No wheezes or dullness. Cardiac: Regular rate and rhythm, S1, S2, no murmur Abdomen: bowel sounds present, tender to palpate, well-healed scar, no organomegaly Musculoskeletal: no joints with acute erythema, swelling Skin and soft tissues: no rash; no pitting edema; slight jaundice Lymphatic: no adenopathy cervical Neurological: face symmetric, 5/5 strength, normal tone, normal movement, no tremor Psych: alert and oriented. IVs and Medications Medications Reviewed: Medications were reviewed in detail Lab and Diagnostics Result Diagram: 02/22/17 0513 02/22/17 0151 X-Rays, CTs and MRIs PROCEDURE: X-RAY CHEST ONE VIEW, PORTABLE ([id number]) 02/21/17 IMPRESSION: Right upper lobe pneumonia, not previously present, PICC line in normal position Dictated by: Alejandro Lee M.D. on 02/21/2017 at 13:27 0711/06: IMPRESSION: 1. Interval increased extent of right upper and lower lung pneumonia. 2. Nonacute left fifth through seventh rib fractures as before. Dictated by: Francisco Beebe M.D. on 02/22/2017 at 8:05 PROCEDURE: CT ABDOMEN AND PELVIS WITH CONTRAST ([id number]) IMPRESSION: 1. Stable appearing bilateral 1.5 x 1.8 cm adrenal nodules. 2. Pancreatic head/uncinate junction mass. Stable in appearance over time. 3. Prior cholecystectomy. 4. No sign of intestinal obstruction or perforation found. Dictated by: Alejandro Lee M.D. on 02/21/2017 at 15:13 PROCEDURE: CT ANGIO CHEST PULMONARY EMBOLISM ([id number]) IMPRESSION: No pulmonary embolus seen, right sided dense pneumonia pattern present as discussed above. Moderately large hiatal hernia behind the heart. Please also refer to dedicated abdomen/pelvis CT scanning today for further discussion. Dictated by: Alejandro Lee M.D. on 02/21/2017 at 15:08 . 12-lead ECG 02/21/17 13:37 sinus tachycardia 100, intervals normal, QTC 468, left axis deviation -[address] changes. Assessment & Plan 67-year-old male with history of CAD, pancreatic cancer, COPD and chronic pain presents with acute septic shock likely secondary to pneumonia # Septic shock, present on admission, improved. - Patient presented with Blood pressure 88/40 with heart rate 100, temperature 39.2, respiratory rate 22 on admission. Lactic acid 2.8. Source is right upper lobe pneumonia evidence on CXR. Hypotension unresponsive to aggressive IV fluid therapy, and thus norepinephrine was initiated in the ER. - His initial symptoms were nausea and vomiting. His status is at baseline but has clear right-sided pulmonary infiltrate. Unclear whether this is abdominal process contributing to aspiration with pneumonitis or primary community- acquired pneumonia. [facility], but no recent hospital admission. - Lactate normalized (1.2). Procalcitonin jumped from 0.18 to 35 today. Continue to trend procalcitonin. - Continue volume resuscitation with NS @150mls/hr. PRN 500mls boluses. Pressor support. Norepinephrine wean as tolerated. - Maintain MAP greater than 65 mmHg - Strict intake and output # Probable aspiration pneumonia vs. community acquired pneumonia, present on admission, active. - Poor dentition and nausea and vomiting raise concern for aspiration pneumonia. - Repeat CXR today showed extension of the pneumonia. - Viral PCR negative. - Patient has history of MRSA, but his MRSA screen is negative this time. Will discontinue Vanco. - Appreciate Dr. Echevarria's recommendations. Continue Zosyn and levofloxacin for ICU level pneumonia sepsis. - IVF as above. # Elevated Troponin, present on admission, active. - Patient is asymptomatic. EKG was normal. - Heparin gtt initiated last night. Will continue for 48 hours while trending trop. - Continue dual-antiplatelet therapy with Plavix and ASA. Continue Statin. - No BP medication given his hypotension. # Neutropenia with WBC 1.9, 52% neutrophil on admission. - Unclear whether neutropenia is due to sepsis or his recent chemotherapy. Anemia hemoglobin 10.5 was likely chronic disease.. INR 1.03 on admission. No evidence of DIC. - Daily CBC - Appreciate Dr. Laguerre's input. # Diabetes type 2, non-insulin using, presume stable. - Patient denies insulin use at home due to chronic abdominal pain although his med list Lantus 45 units. - Patient's BG has been less than 120 consistently without any insulin. Will D/ C Lantus orders now. - Medium correctional scale. - A1c pending. - Diabetic diet # Acute nausea and vomiting, present on admission, resolved. - Abdominal CT scan is unremarkable for an acute focal infection. Pancreatic cancer seems chronic, stable. Diabetes mellitus will require acute inpatient management. - Obtain GI PCR panel if he has persistent diarrhea. - Antiemetics as needed for nausea and vomiting. - Follow clinical exam for evidence of any acute GI infectious process # Encephalopathic in the emergency department. Resolved. - Likely due to acute metabolic encephalopathy from sepsis. Seems to be resolving at time of admission. - Monitor neurologic status with resuscitation # Pancreatic cancer, active. - Oncologist is Dr. Laguerre. Patient has had FOLFOX chemo with the plan to contiue for the full 12 cycles. - Will postpone the chemo therapy until the patient is discharged. - Appreciate Oncology input. # Chronic Pain. - Continue his long-acting morphine - Continue breakthrough oxycodone at present while resuscitation from sepsis # Venous thromboembolism prophylaxis: -Lovenox # GI prophylaxis: - Famotidine # Goals of care, expected hospital duration, discharge planning: - Admitted to inpatient status with expectation of care greater than 48 hours Code status: FULL. Pain Evaluation: Adequate Pain Control GI Prophylaxis: H2 hilary VTE Prophylaxis: Sub-Q Enoxaparin Resuscitation Status: CPR: Attempt Resuscitation Attending Statement Patient seen and examined with house staff. Agree with all attached DOCUMENTATION. Alka Curran DO Feb 22, 2017 09:42 Varun Cook MD Feb 23, 2017 13:26
--- NOTE | 2017-02-22 10:47 | PROG NOTE ---
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 He has received seven courses of adjuvant FOLFOX chemotherapy following surgery. He was hospitalized yesterday when he presented after a syncopal episode. He was quite confused. He had shaking chills and fatigue. Imaging included CT of the abdomen and pelvis which had a pancreatic head/uncinate junction mass thought to be stable and stable 1.5 x 1.[address] angiography of the chest showed no evidence of pulmonary embolus, but he had a dense right-sided pneumonia and a moderately large hiatal hernia. He was cultured. Studies from blood and stool are negative to date. He was started on antibiotic coverage with piperacillin/tazobactam 3.375 g IV q.8 h., and received a single dose of vancomycin 1.25 g IV. For blood pressure support, he is on a norepinephrine drip. He is very comfortable and quite lucid this morning. No fevers since yesterday, when he had a T-max of 39.2 degrees centigrade in the emergency department. OBJECTIVE: Vitals: T 36.4, P 71, R 20, BP 125/67, O2 saturation 99% on 1 L oxygen by nasal cannula. HEENT: Conjunctivae pale. Mucous membranes slightly dry. No oral lesions. Nodes: No adenopathy in the neck or axilla. Chest: Scattered crackles in the right lung, slightly decreased at the bases. Cardiac exam: Regular rate and rhythm, with normal S1, S2. A 1/6 systolic ejection murmur across the precordium. Abdomen: Soft. Mild tenderness over the right upper quadrant. No rebound. Active bowel tones. No palpable masses. Extremities: No edema. 2+ distal pulses. No calf tenderness. LABORATORIES: WBC 3.3 with 38% neutrophils, 48% lymphocytes, hemoglobin 7.7, hematocrit 24%, platelets 183,000. Sodium 142, potassium 3.3, BUN 9, creatinine 0.48, glucose 90. AST 36, ALT 16, alkaline phosphatase 91. Total protein 4.5, albumin 2.4. Procalcitonin 35.87. Troponin-T 0.586. 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 He is due for treatment today, but clearly this will be placed on hold while he undergoes further management of sepsis syndrome associated with a large right-sided pneumonia. Continue broad-spectrum antibiotic coverage, supplemental oxygen, and blood pressure support with fluids and norepinephrine. Correct electrolytes. Cardiac evaluation is pending given his laboratory findings. Appreciate input from Dr. Echevarria of the Infectious Disease team and the hospitalist.
--- NOTE | 2017-02-22 10:51 | NUR ---
NUTRITION ASSESSMENT Assess: 67 YO M admitted to CCU for sepsis, pneumonia. PMHX: Pancreatic cancer on chemotherapy, CAD, COPD, type 2 DM, chronic pain, DVT, KULWINDER DIET: Heart Healthy/Consistent Carb. No PO intake recorded yet. LABS: K+ 3.3, Cr 0.48, Ca 7.2, Phos 2.3, Alb 2.4 MEDICATIONS: Reviewed. Insulin, Pressor. GI: No BM noted. SKIN: No issues noted. ANTHROPOMETRICS: Wt: 68.18 kg, BMI 26.6 kg/m2 ESTIMATED NEEDS: Calories: 1463-5843 kcal/day (25-30 kcal/kg BW) Protein: 55-102 g/day (0.8-1.5 g/kg BW) NUTRITION DIAGNOSIS: 1) No diagnosis at this time. INTERVENTION: 1) No intervention at this time. MONITOR/EVALUATE: PO intake, diet tolerance, labs, GI/nutrition status. Follow per moderate nutrition risk guidelines.
--- NOTE | 2017-02-22 11:22 | CONS ---
[address] [address] CONSULTATION REPORT PATIENT: PATTI HUMMEL : 1950 MR#: [id number] ADMIT: 02/21/2017 JOB ID: [id number] DATE OF SERVICE: 02/22/[address] Gonzales for this timely consult. REASON FOR CONSULTATION: Extensive right-sided pneumonia in a patient undergoing chemotherapy for pancreatic cancer. HISTORY OF PRESENT ILLNESS: The patient is a 67-year-old gentleman who just had a birthday who was diagnosed with pancreatic cancer in the fall of 2015. He underwent a Whipple procedure at [facility] and since then has had persistent abdominal pain. He has done reasonably well, however and has been getting FOLFOX chemotherapy over the past four months or so through Dr. Haja Laguerre. The patient has been tolerating his chemo reasonably well. The plan was to give him 12 cycles. He has currently completed 7 and is due for the 8th about this time. The patient was in his usual state of reasonably good health until yesterday, February 21, when he developed fevers, chills, nausea, vomiting, and developed hypotension. He was then brought to the hospital and admitted and admitted for what appeared to be a pneumonia, which may represent an aspiration type pneumonia. In association with these symptoms he had a change in mental status. Over just 24 hours or so in the hospital he has dramatically improved and this morning he is awake, alert, and has quite a lot to say. He tells us that the reason he was brought to the emergency department was because he and his did a routine blood pressure check and found him to be hypotensive and on that basis he came here, but the ER notes and admission notes suggest this was much more of a fevers, chills, nausea, vomiting, weakness process. This morning the patient denies most complaints. He says he has no headache or sore throat. He denies any cough or shortness of breath beyond his normal baseline COPD and notes that his nausea and vomiting are improved. He continues to have abdominal pain, which he has had ever since his surgery he says back in June at [facility] and he continues to complain of rib pain, which he said dates back to some rib fractures two years ago which never healed appropriately. PAST MEDICAL HISTORY: 1. Pancreatic cancer status post Whipple June 2016 and ongoing FOLFOX therapy. 2. Coronary artery disease. 3. COPD. 4. Diabetes mellitus. 5. History of DVT. 6. Chronic pain syndrome. 7. Obstructive sleep apnea. SOCIAL HISTORY: The patient was a smoker until he was diagnosed with pancreatic cancer. He used to drink, but has stopped that also. He lives with his in the local area. He is originally from [place], and then lived in [place], [place], and finally here the last few years. FAMILY HISTORY: No family history of TB in first degree relatives. REVIEW OF SYSTEMS: This morning the patient has relatively few symptoms. He denies headache, sore throat, cough, shortness of breath beyond baseline nausea or vomiting. No diarrhea. No dysuria. No focal complaints other than the ongoing rib pain he has had for a couple years and his abdominal pain which he has had for 8 months since his surgery. Remainder of the review of systems is negative. PHYSICAL EXAMINATION: Reveals an afebrile gentleman. He was 39.2 in the ER yesterday about noon. Since then, he has been completely afebrile now 36.4, pulse 67, respiratory rate 18, blood pressure 125/67. He is saturating 99% on room air and looks very comfortable. He is awake, alert, and able to give a reasonable history, though as mentioned he is lacking the details on yesterday's admission. Head without trauma. Sinuses nontender. Eyes with pale conjunctiva. He has poor dentition. No pharyngitis is seen. No oral ulcerations. Neck without adenopathy, reasonably supple. No JVD. Lungs with rales in the right side diffusely. Cardiac tones regular rate and rhythm, no significant murmur. He has a PICC in the right upper extremity which looks okay. His abdomen is notable for a large about a 15 cm horizontal upper abdominal scar which is well healed. His abdomen though is diffusely tender, and he prefers it be examined by as few people as possible. He states that this is his baseline level of tenderness. He has no obvious organomegaly or mass, but again it is a difficult exam as the patient really does not want to be palpated. He does not have a Ferguson catheter and has no suprapubic fullness. His extremities are free of obvious infection. No synovitis, cellulitis, skin breakdown. Neurologically, he is intact, but he has some trouble moving around even in bed from what he describes as chronically broken ribs. Neurologically grossly intact. DIAGNOSTIC STUDIES: Labs include white count yesterday 1999 today 3300. At no point has he been neutropenic with basically 38% to 50% neutrophils. His creatinine 0.48. LFTs are normal. Creatinine 0.48. LFTs normal. Procalcitonin is 36 today, it was 0.19 when he came in. Urinalysis without white cells. Microstudies include stool PCR is negative. A nasopharyngeal MRSA screen negative. Blood cultures negative, but they are less than 24 hours old. Imaging was reviewed. The patient's chest x-ray and CT were carefully reviewed on the computer and may show extensive right-sided infiltrates which are new. In addition, the patient has a stable pancreatic mass, and he has no broken ribs that we can see. IMPRESSION: This is an unfortunate patient with pancreatic cancer which seems to be stable on chemo, but certainly not cured. We have discussed this case this morning in person and on the telephone with Dr. Laguerre of Heme/Onc who tells us that the patient has stable disease which is considered a victory at this point, but is highly unlikely to be cured from this process. There are plans to continue his FOLFOX chemo for a total of 12 cycles, but there is no question that will have to be delayed now because of his pneumonia. This pneumonia likely represents an aspiration type event based upon the history, but we are still not of course completely sure and will need to finish our diagnostic workup. RECOMMENDATIONS: 1. Vanco can be dropped as his MRSA screen is negative this time, though was positive last time. 2. Zosyn and levo is not an inappropriate place to start in a critically ill patient such as this and I would continue. 3. This case discussed extensively during ICU rounds. 4. We have ordered a respiratory viral PCR panel as well as urine antigens for Legionella and pneumococcus. 5. Will continue to follow his procalcitonin and other labs. 6. The patient's rapid turnaround suggests he may be ready to be discharged in the fairly near future on oral therapy, but for now I would certainly keep him in the hospital for another day or two as we observe his very high procalcitonin and his clinical progress.
--- NOTE | 2017-02-22 12:16 | DRSVH ---
[facility] [address] [place] [address] Echocardiogram Report Name: PATTI HUMMEL Study Date: 02/22/2017 Height: 63 in Hospital Exam Location: [facility] Weight: 150 lb Gender: Male BSA: 1.7 m2 : 1950 Age: 67 yrs BP: 109/53 mmHg Reason For Study: Elevated Troponin Ordering Physician: Performed By: Mary Ambroc[facility] HOSPITAL[facility] Interpretation Summary Technically difficult study with poor quality images limit wall motion assessment and valve visualization. 1) Normal left ventricular thickness and size with mildly to moderately reduced function (EF 40-45%). 2) The entire apex, mid to distal anterolateral wall, and mid to distal anterior wall are akinetic. 3) Normal right ventricular size and function. 4) Right ventricle appears thickened and may have moderate right ventricular hypertrophy. 5) No significant valvular abnormalities. 6) Compared to the echo done 01/24/2016, LV function is lower on today's study due to wall motion abnormalities in the LAD territory. Strongly suspect significant obstructive disease in the LAD. Correlate clinically. Procedure: A two-dimensional transthoracic echocardiogram with color flow and Doppler was performed. The study quality was technically good. Comparison is made with the echocardiogram of 01-24-16. The patient was in normal sinus rhythm during the exam. Left Ventricle: The left ventricle is normal in size. There is normal left ventricular wall thickness. Thrombus can not be excluded. The ejection fraction is estimated to be 40-45%. The entire apex, mid to distal anterolateral wall, and mid to distal anterior wall are akinetic. Assessment of diastolic parameters suggests a pseudonormalization pattern, consistent with elevated filling pressures. Right Ventricle: The right ventricle is normal in size and function. There is moderate right ventricular hypertrophy. Atria: The left atrium grossly appears normal in size. The right atrium grossly appears normal in size. The interatrial septum is intact with no evidence for an atrial septal defect. Mitral Valve: The mitral valve is grossly normal. There is no mitral regurgitation. Aortic Valve: The aortic valve opens well. No aortic regurgitation is present. Tricuspid Valve: The tricuspid valve is normal in structure and function. There is trace tricuspid regurgitation. Pulmonic Valve: The pulmonic valve is not well visualized. There is trace pulmonic regurgitation. Great Vessels: The aortic root is normal size. The dimensions of the ascending aorta are normal. The inferior vena cava was not visualized. Pericardium/ Pleura There is no pericardial effusion. There is no pleural effusion. MMode/2D Measurements & Calculations LVIDd: 5.5 cm LA dimension: 3.3 cm RA long axis Ao root diam LVIDs: 3.7 cm FS: 32.0 % RA area Aortic Jxn: 2.7 cm IVSd: 0.92 cm asc Aorta Diam LVPWd: 0.86 cm : 17.5 cm RA vol Ao Arch Diam (Prox : 57.5 ml Trans): 2.3 cm RA : 33.6 mm/ RVDd major : 3.8 cm LV flores. diameter/BSA LV sys. diameter/BSA RVD1 (basal) RVD2 (mid): 2.8 cm (cm/m^2): 3.2 (cm/m^2): 2.2 Doppler Measurements & Calculations LVOT Max Atilio MV E max atilio MV E/A: 1.1 TR max atilio : 132.2 cm/sec : 70.2 cm/sec Med Peak E' Atilio : 241.8 cm/sec MV A max atilio TR max PG : 64.6 cm/sec E/E' med: 13.1 : 23.4 mmHg MV P1/2t: 71.1 msec Lat Peak E' Atilio PA V2 max : 90.6 cm/sec E/E' lat: 11.7 PA mean PG E/e' average : 1.6 mmHg MV A dur: 0.13 sec MV dec time MV P1/2t max atilio LV V1 max PG PA V2 mean : 0.24 sec : 58.1 cm/sec MVA(P1/2t): 3.1 cm2 LV V1 VTI: 22.1 cm Reading Physician:12:16 PM
[2017-02-22] MEDS ORDERED: Sodium Chloride LOK Flush 10 mL Syringe IVFLUSH PRN ×2 (13:15)
--- NOTE | 2017-02-22 16:34 | PCM.PNMED ---
Subjective Date of Service Feb 22, 2017 Subjective 67 yo with h/o invasive ampullary adeno CA, s/p Whipple admitted with sudden onset confusion, fever, shock while neutropenic following chemo ( FOLFOX ) at his bedside, History prior to admission reviewed with her and patient. Currently denies pain, SOB, fever. Alert and cooperative. Exam Vital Signs Vital Sign - Last Date Time Temp Pulse Resp B/P Pulse Ox O2 Delivery O2 Flow Rate FiO2 02/22/17 14:23 86 20 98 Room Air 02/22/17 12:00 36.5 110/56 1.00 Intake and Output 02/21/17 02/21/17 02/22/17 Cumulative From/Thru 15:00 23:00 07:00 02/21/17 12:30 - 02/22/17 06:06 Intake Total 3000 ml 1080 ml 3402 ml 7482 ml Output Total 400 ml 2400 ml 2800 ml Balance 3000 ml 680 ml 1002 ml 4682 ml Intake Oral 500 ml 500 ml IV Total 3000 ml 1080 ml 2902 ml 6982 ml Output Urine Total 400 ml 2400 ml 2800 ml # Bowel Movements 0 0 Exam Ill appearing man in NAD, speaks in full sentences Lungs Decreased breath sounds at both bases, NO wheezes, + faint crackles, Diffusely tender both lateral chest garcia CV Distant HT's, no m/g/r Lab and Diagnostics Result Diagram: 02/22/17 0513 02/22/17 0151 X-Rays, CTs and MRIs PROCEDURE: X-RAY CHEST ONE VIEW, PORTABLE ([id number]) 02/21/17 IMPRESSION: Right upper lobe pneumonia, not previously present, PICC line in normal position Dictated by: Alejandro Lee M.D. on 02/21/2017 at 13:27 07/17: IMPRESSION: 1. Interval increased extent of right upper and lower lung pneumonia. 2. Nonacute left fifth through seventh rib fractures as before. Dictated by: Francisco Beebe M.D. on 02/22/2017 at 8:05 PROCEDURE: CT ABDOMEN AND PELVIS WITH CONTRAST ([id number]) IMPRESSION: 1. Stable appearing bilateral 1.5 x 1.8 cm adrenal nodules. 2. Pancreatic head/uncinate junction mass. Stable in appearance over time. 3. Prior cholecystectomy. 4. No sign of intestinal obstruction or perforation found. Dictated by: Alejandro Lee M.D. on 02/21/2017 at 15:13 PROCEDURE: CT ANGIO CHEST PULMONARY EMBOLISM ([id number]) IMPRESSION: No pulmonary embolus seen, right sided dense pneumonia pattern present as discussed above. Moderately large hiatal hernia behind the heart. Please also refer to dedicated abdomen/pelvis CT scanning today for further discussion. Dictated by: Alejandro Lee M.D. on 02/21/2017 at 15:08 . 12-lead ECG 02/21/17 13:37 sinus tachycardia 100, intervals normal, QTC 468, left axis deviation -[address] changes. Assessment & Plan 67-year-old male with history of CAD, pancreatic cancer, COPD and chronic pain presents with neutropenic sepsis IMP Sepsis, severe with shock. While his CXR is abnormal, he has no respiratory symptoms and his entire presentation may be due to neutropenic sepsis from bacterial translocation. He is improving on empiric abx following resuscitation and pressors are nearly weaned off. NSTEMI, his FOLFOX may contribute as 5-FU is associated with increased risk for acute coronary syndrome. Further use should be discussed with his oncologist. REC Wean pressors as tolerates Continue abx for 48 after patient becomes afebrile and neutropenia resolves ( ANC today is already > 1000 ) Serial troponins GI Prophylaxis: H2 hilary VTE Prophylaxis: Sub-Q Enoxaparin Resuscitation Status: CPR: Attempt Resuscitation Julio Prince MD Feb 22, 2017 16:34
[2017-02-22] MEDS: levoFLOXacin 750 mg Tablet PO SCH (18:15)
--- NOTE | 2017-02-22 18:37 | NUR ---
Pressors Pt continues to be on norepi, attempted to titrate meds down during shift, unable to D/Cd them, MAP dropped into 50s. Pt TELE SR 70s, denies any Cp or dizziness. Rib pain continuous, worse with movement. Using oxycodone 5mg PRN as well as BID MS contin. Pt moving independently in bed, family at bedside most of shift.
[2017-02-22] MEDS ORDERED: KCl 40 mEq/500 mL D5W (K < 3 & Creat <2) IV ONE (19:15)
[2017-02-23] VITALS (8 sets, daily range): BP systolic 95–128; BP diastolic 46–79; PULSE 69–93; RESP 15–18; O2SAT 97–99
[2017-02-23 01:07] LABS: TROPONIN T 0.464 ug/L (0.0-0.011)
[2017-02-23] MEDS ORDERED: Potassium Chloride 20 mEq SR Tablet PO ONE (01:20)
[2017-02-23] MEDS: Albuterol 1.25 mg/3 mL Inhalation Solution NEB SCH (01:37)
[2017-02-23] MEDS: Albuterol HFA 200 Puff Inhaler (Vent Pts Only) INHALATION SCH ×4 (02:30→20:30)
[2017-02-23] MEDS ORDERED: Vancomycin Serum Trough XX ONE (02:30)
[2017-02-23] MEDS: Morphine ER 30 mg (MS Contin) Tablet PO SCH ×2 (05:53→17:59)
[2017-02-23] MEDS: 0.9% Sodium Chloride 1,000 ML IV SCH ×2 (05:54→19:20)
[2017-02-23 06:03] LABS: Mean Corpuscular Hemoglobin 26.9 pg (27.0-35.0)
--- NOTE | 2017-02-23 06:04 | NUR ---
Low K+/Pain/Hypotension K+ 3.2 around 1700, hung kcl 40 meq IV, repeat K+ level 3.6, given Kdur 40 meq po. Pt c/o chronic left back pain and abd pain, on routine ms contin, also given oxycodone prn. Pain at comfortable level. On low dose levo @ 0.015, weaned off for 30 mins, systolic bp dropped in the mid 80's, restarted gtt @ 0.010, pt voided w/ >2L uo
[2017-02-23 06:07] LABS: Mean Corpuscular Volume 83.6 fL (81-100); Platelet Count 167 bil/L (150-400)
[2017-02-23 06:53] LABS: BASOPHILS % (AUTO) 1 % (0-3); EOSINOPHILS % (AUTO) 2 % (0-5); MONOCYTES % (AUTO) 28 % (4-12); NEUTROPHILS % (AUTO) 33 % (40-74)
[2017-02-23 07:11] LABS: Magnesium 1.6 mg/dL (1.6-2.6)
[2017-02-23 07:15] LABS: TROPONIN T 0.366 ug/L (0.0-0.011)
[2017-02-23] MEDS: Insulin LISPRO 300 Unit/3 mL Inj SUBQ SCH ×4 (07:28→21:08)
[2017-02-23] MEDS: Tiotropium 18mcg/Cap 5 Capsule Inhaler Kit INHALATION SCH ×2 (08:30→15:18)
[2017-02-23] MEDS: Piperacillin-Tazo 3.375 Gm Inj 3.375 GM in Dextrose 5% Minibag Plus 50 ML IV SCH ×2 (08:35→19:21)
[2017-02-23] MEDS: Fluticasone-Salmeterol 500-50 Inhaler INHALATION SCH ×2 (08:36→21:26)
--- NOTE | 2017-02-23 08:57 | PROG NOTE ---
[address] [address] PROGRESS NOTE PATIENT: PATTI HUMMEL : 1950 MR#: [id number] ADMIT: 02/21/2017 JOB ID: [id number] DATE: 02/23/2017 REASON FOR FOLLOWUP: Right middle lobe pneumonia in a patient with underlying pancreatic cancer who is receiving FOLFOX chemotherapy. INTERVAL HISTORY: Overnight, the patient reports feeling much improved, and the patient had no subjective fevers or chills. His respiratory status seems to be improving, minimal cough, no new abdominal complaints. He has a left chest wall pain from some nonhealing rib fractures. He also has diffuse upper abdominal pain from a Whipple procedure that was done eight months ago and remains very painful. PHYSICAL EXAMINATION: Reveals a gentleman T-max 37.8 which would be marginally of fever. He was definitely febrile when he came in 48 hours ago to 39.2, but no temps over 38 since. Pulse 69, respiratory rate 15, blood pressure 104/46. He is still on minimal dose norepinephrine at 0.01 mcg/kg to support his blood pressure. The patient is awake and alert. Lungs with some rales and rhonchi at the right base, but otherwise clear. Still has left chest wall pain to palpation and diffuse upper abdominal pain, both of which he states are at his baseline. Remainder of his abdominal exam is unremarkable. He has no new skin rash. He has a PICC line in the right upper extremity which he has had for chemo. LABORATORIES: Include white count today of 3300. The total neutrophil count is about 1100. Platelets adequate at 167. Creatinine today 0.55. LFTs totally normal. Procalcitonin was 36 yesterday, 18 today so it has fallen by exactly half in a day which is just about what we would expect with a serious bacterial infection. Urinalysis negative. Urine pneumococcal and Legionella antigens negative. MRSA screen. Negative stool PCR studies all negative and blood cultures negative. IMPRESSION: Very impressive right-sided bacterial pneumonia in a patient undergoing chemotherapy for pancreatic cancer. At this point, the patient is much improved. He is on minimal doses of vasopressors, which are being weaned and he is breathing room air and quite comfortable overall. RECOMMENDATIONS: Continue with Zosyn and levo for at least another day or so with a plan to taper therapy and hopefully get the patient out of the hospital within the next couple days.
--- NOTE | 2017-02-23 09:19 | PCM.PNMED ---
Subjective Date of Service Feb 23, 2017 Subjective Comfortable No critical events over noc Denies SOB, pain wants to get out of bed Exam Vital Signs Vital Sign - Last Date Time Temp Pulse Resp B/P Pulse Ox O2 Delivery O2 Flow Rate FiO2 02/23/17 07:41 37.0 69 15 104/46 97 Room Air 02/22/17 17:20 1.00 Intake and Output 02/22/17 02/22/17 02/23/17 Cumulative From/Thru 15:00 23:00 07:00 02/21/17 12:30 - 02/23/17 06:00 Intake Total 1905 ml 3626 ml 27570 ml Output Total 1500 ml 2375 ml 6675 ml Balance 405 ml 1251 ml 6338 ml Intake Oral 900 ml 1400 ml IV Total 1905 ml 2726 ml 65726 ml Output Urine Total 1500 ml 2375 ml 6675 ml # Bowel Movements 0 0 Exam Lungs Decreased BS, crackles at bases , No wheezes CV Distant HTs, no m/g/r Ext no edema Lab and Diagnostics Result Diagram: 02/23/17 0550 02/23/17 0550 X-Rays, CTs and MRIs PROCEDURE: X-RAY CHEST ONE VIEW, PORTABLE ([id number]) 02/21/17 IMPRESSION: Right upper lobe pneumonia, not previously present, PICC line in normal position Dictated by: Alejandro Lee M.D. on 02/21/2017 at 13:27 : IMPRESSION: 1. Interval increased extent of right upper and lower lung pneumonia. 2. Nonacute left fifth through seventh rib fractures as before. Dictated by: Francisco Beebe M.D. on 02/22/2017 at 8:05 PROCEDURE: CT ABDOMEN AND PELVIS WITH CONTRAST ([id number]) IMPRESSION: 1. Stable appearing bilateral 1.5 x 1.8 cm adrenal nodules. 2. Pancreatic head/uncinate junction mass. Stable in appearance over time. 3. Prior cholecystectomy. 4. No sign of intestinal obstruction or perforation found. Dictated by: Alejandro Lee M.D. on 02/21/2017 at 15:13 PROCEDURE: CT ANGIO CHEST PULMONARY EMBOLISM ([id number]) IMPRESSION: No pulmonary embolus seen, right sided dense pneumonia pattern present as discussed above. Moderately large hiatal hernia behind the heart. Please also refer to dedicated abdomen/pelvis CT scanning today for further discussion. Dictated by: Alejandro Lee M.D. on 02/21/2017 at 15:08 . 12-lead ECG 02/21/17 13:37 sinus tachycardia 100, intervals normal, QTC 468, left axis deviation -[address] changes. Assessment & Plan 67-year-old male with history of CAD, pancreatic cancer, COPD and chronic pain presents with acute septic shock following neutropenia after adjuvant chemo with FOLFOX. Sepsis, severe with shock. While his CXR is abnormal, he has no respiratory symptoms and his entire presentation may be due to neutropenic sepsis from bacterial translocation. He is improving on empiric abx following resuscitation and pressors have been weaned off. NSTEMI, LVEF 40-45% which is new, his FOLFOX may contribute as 5-FU is associated with increased risk for acute coronary syndrome. Further use should be discussed with his oncologist. Additional recs per Cardiology. continues on ASA/Plavix/Heparin gtt REC Continue abx OOB PCCM will sign off. Please reconsult as needed GI Prophylaxis: H2 hilary VTE Prophylaxis: Sub-Q Enoxaparin Resuscitation Status: CPR: Attempt Resuscitation Julio Prince MD Feb 23, 2017 09:19
--- NOTE | 2017-02-23 09:42 | PCM.PNMED ---
Subjective Date of Service Feb 23, 2017 Subjective No acute event overnight. Levophed weaned down to 0.01. This morning, patient continues to do well with no concerns. He denies cough, CP , SOB, nausea, vomiting, or diarrhea. Exam Vital Signs Vital Sign - Last Date Time Temp Pulse Resp B/P Pulse Ox O2 Delivery O2 Flow Rate FiO2 02/23/17 07:41 37.0 69 15 104/46 97 Room Air 02/22/17 17:20 1.00 Intake and Output 02/22/17 02/22/17 02/23/17 Cumulative From/Thru 15:00 23:00 07:00 02/21/17 12:30 - 02/23/17 06:00 Intake Total 1905 ml 3626 ml 69165 ml Output Total 1500 ml 2375 ml 6675 ml Balance 405 ml 1251 ml 6338 ml Intake Oral 900 ml 1400 ml IV Total 1905 ml 2726 ml 80018 ml Output Urine Total 1500 ml 2375 ml 6675 ml # Bowel Movements 0 0 Exam Constitutional: pale, jaundice, dry. Chronically ill appearance. Talkative in no acute distress. Eyes: sclerae anicteric, Conjunctival pallor, ENMT: ears, nose atraumatic; oral mucosa dry, but improved; poor dentition Neck: supple, JVD absent Chest: symmetric, poor breathing effort with apparent thoracic pain. Mild scattered rales. No wheezes or dullness. Cardiac: Regular rate and rhythm, S1, S2, no murmur Abdomen: bowel sounds present, diffuse tenderness to palpate, well-healed scar, no organomegaly Musculoskeletal: no joints with acute erythema, swelling Skin and soft tissues: no rash; no pitting edema; slight jaundice Neurological: face symmetric, 5/5 strength, normal tone, normal movement, no tremor Psych: alert and oriented. IVs and Medications Medications Reviewed: Medications were reviewed in detail Lab and Diagnostics Result Diagram: 02/23/17 0550 02/23/17 0550 X-Rays, CTs and MRIs PROCEDURE: X-RAY CHEST ONE VIEW, PORTABLE ([id number]) 02/21/17 IMPRESSION: Right upper lobe pneumonia, not previously present, PICC line in normal position Dictated by: Alejandro Lee M.D. on 02/21/2017 at 13:27 702/17: IMPRESSION: 1. Interval increased extent of right upper and lower lung pneumonia. 2. Nonacute left fifth through seventh rib fractures as before. Dictated by: Francisco Beebe M.D. on 02/22/2017 at 8:05 PROCEDURE: CT ABDOMEN AND PELVIS WITH CONTRAST ([id number]) IMPRESSION: 1. Stable appearing bilateral 1.5 x 1.8 cm adrenal nodules. 2. Pancreatic head/uncinate junction mass. Stable in appearance over time. 3. Prior cholecystectomy. 4. No sign of intestinal obstruction or perforation found. Dictated by: Alejandro Lee M.D. on 02/21/2017 at 15:13 PROCEDURE: CT ANGIO CHEST PULMONARY EMBOLISM ([id number]) IMPRESSION: No pulmonary embolus seen, right sided dense pneumonia pattern present as discussed above. Moderately large hiatal hernia behind the heart. Please also refer to dedicated abdomen/pelvis CT scanning today for further discussion. Dictated by: Alejandro Lee M.D. on 02/21/2017 at 15:08 . 12-lead ECG 02/21/17 13:37 sinus tachycardia 100, intervals normal, QTC 468, left axis deviation -[address] changes. Assessment & Plan 67-year-old male with history of CAD, pancreatic cancer, COPD and chronic pain presents with acute septic shock likely secondary to pneumonia and was admitted to the ICU. # Septic shock, present on admission, improved. - On admission, patient presented with Blood pressure 88/40 with heart rate 100 , temperature 39.2, respiratory rate 22 on admission. Lactic acid 2.8. Source is right upper lobe pneumonia evidence on CXR. Hypotension unresponsive to aggressive IV fluid therapy, and thus norepinephrine was initiated in the ER. - His initial symptoms were nausea and vomiting. His status is at baseline but has clear right-sided pulmonary infiltrate. Unclear whether this is abdominal process contributing to aspiration with pneumonitis or primary community- acquired pneumonia. [facility], but no recent hospital admission. - Lactate normalized (1.2). Procalcitonin trending down. Continue to trend procalcitonin. - Continue volume resuscitation with NS @100mls/hr. PRN 500mls boluses. - Norepinephrine wean off today. Will transfer from CCU to PCC. - Maintain MAP greater than 65 mmHg - Strict intake and output # Probable aspiration pneumonia vs. community acquired pneumonia, present on admission, active and improving. - Poor dentition and nausea and vomiting raise concern for aspiration pneumonia. - CXR showed extension of the pneumonia. - Viral PCR negative. - Patient has history of MRSA, but his MRSA screen is negative this time. Will discontinue Vanco. - Appreciate Dr. Echevarria's recommendations. Continue Zosyn and levofloxacin for ICU level pneumonia sepsis. Will continue these and likely transition to oral antibiotics in a couple days. - IVF as above. # Elevated Troponin, present on admission, active and improving. - Patient is asymptomatic. EKG was normal. - Likely secondary to ischemic demand from septic shock. - Heparin gtt initiated last night. Will continue for 48 hours while trending trop. - Trop trending down. - Continue dual-antiplatelet therapy with Plavix and ASA. Continue Statin. - No BP medication given his hypotension. # Neutropenia with WBC 1.9, 52% neutrophil on admission. By mouth and improving. - Unclear whether neutropenia is due to sepsis or his recent chemotherapy. Anemia hemoglobin 10.5 was likely chronic disease.. INR 1.03 on admission. No evidence of DIC. - Daily CBC - Appreciate Dr. Laguerre's input. # Normocytic anemia, likely chronic. - H/H trend down, but stable today. - Will continue serial H/H. - 2 units of PRBC on hold. - Stool occult pending. No sign of overt bleeding. # Diabetes type 2, non-insulin using, presume stable. By mouth and stable. - Patient denies insulin use at home although his med list Lantus 45 units. - Patient's BG has been less than 120 consistently without any insulin. Will D/ C Lantus orders now. - Medium correctional scale. - A1c 6.4. - Diabetic diet # Acute nausea and vomiting, present on admission, resolved. - Abdominal CT scan is unremarkable for an acute focal infection. Pancreatic cancer seems chronic, stable. Diabetes mellitus will require acute inpatient management. - Obtain GI PCR panel if he has persistent diarrhea. - Antiemetics as needed for nausea and vomiting. - Follow clinical exam for evidence of any acute GI infectious process # Encephalopathic in the emergency department. Resolved. - Likely due to acute metabolic encephalopathy from sepsis. Seems to be resolving at time of admission. - Monitor neurologic status with resuscitation # Pancreatic cancer, active. - Oncologist is Dr. Laguerre. Patient has had FOLFOX chemo with the plan to contiue for the full 12 cycles. - Will postpone the chemo therapy until the patient is discharged. - Appreciate Oncology input. # Chronic Pain. - Continue his long-acting morphine - Continue breakthrough oxycodone at present while resuscitation from sepsis # Venous thromboembolism prophylaxis: -Lovenox # GI prophylaxis: - Famotidine # Goals of care, expected hospital duration, discharge planning: - Admitted to inpatient status with expectation of care greater than 48 hours Code status: FULL. Pain Evaluation: Adequate Pain Control GI Prophylaxis: H2 hilary VTE Prophylaxis: Sub-Q Enoxaparin Resuscitation Status: CPR: Attempt Resuscitation Attending Statement Patient seen and examined with house staff. Agree with all attached DOCUMENTATION. Alka Curran DO Feb 23, 2017 09:42 Varun Cook MD Feb 23, 2017 13:35
--- NOTE | 2017-02-23 10:00 | NUR ---
[facility] signed
--- NOTE | 2017-02-23 11:45 | NUR ---
Cardiac Levophed gtt turned off at 0750, MAPs maintain 65 or >. Pt denies CP/Pressure. Continues on cardiac heparin gtt, troponin levels trending down. This RN knocked on pt door to enter and assess level of heparin gtt remaining, as bag was running low. Pt's stated pt was on commode, this RN did not enter the room, just visualized the gtt, apologized for this disruption and closed the door. Pt became extremely angry, stated this RN and [employer] "have no respect" and that he "has the right to another nurse". rouge sifter notified. Pt no longer CCU status, ordered transfer out of CCU. Pt to transfer to medical floor with new RN.
--- NOTE | 2017-02-23 12:30 | NUR ---
arrival to unit Pt was transferred from [facility] room 2013 to [facility] room 3006. Report received by Mellissa Marroquin. Pt arrived alert and oriented. Denies any pain or discomfort. Cardiac heparin drip running at 900un/hr. VS WLN. BG 121.
--- NOTE | 2017-02-23 17:00 | NUR ---
Hyperglycemia Pts pre dinner BG was 455. Administered 12un per sliding scale. Notified. Addendum: 02/23/17 at 1733 by SHELDON HODGES RN Wrong patient
[2017-02-23] MEDS: levoFLOXacin 750 mg Tablet PO SCH (17:58)
[2017-02-23] MEDS: Acetaminophen IV 1,000 MG in IV Premix 1 EACH IV PRN ×2 (21:47→21:53)
--- NOTE | 2017-02-23 23:08 | NUR ---
FEVER At initial shift VS, pts temp 37.6, and reached max temp of 38.9 over a couple hrs. Pt states unable to take acetaminophen and NSAIDS d/t "severe stomach pain." Cool washcloths and minimizing blankets had no effect on temp. MD called regarding pts temp, pt adamant about not taking any antipyretics po. MD ordered prn IV tylenol. Dose given, pts fever improved, pt states "I feel better." Continue to monitor. Call light in reach. Pt in room. Intentional rounding.
[2017-02-24] VITALS (11 sets, daily range): BP systolic 90–108; BP diastolic 53–67; PULSE 57–88; RESP 18–20; O2SAT 96–100
[2017-02-24] MEDS: Albuterol HFA 200 Puff Inhaler (Vent Pts Only) INHALATION SCH ×4 (01:53→20:30)
[2017-02-24] MEDS: Piperacillin-Tazo 3.375 Gm Inj 3.375 GM in Dextrose 5% Minibag Plus 50 ML IV SCH ×3 (04:09→19:18)
[2017-02-24 04:12] LABS: Mean Corpuscular Hemoglobin 26.7 pg (27.0-35.0); Mean Corpuscular Volume 82.8 fL (81-100); Platelet Count 215 bil/L (150-400)
[2017-02-24] MEDS: Albuterol 1.25 mg/3 mL Inhalation Solution NEB PRN ×2 (04:13→21:30)
[2017-02-24 04:31] LABS: BASOPHILS % (AUTO) 2 % (0-3); EOSINOPHILS % (AUTO) 3 % (0-5); MONOCYTES % (AUTO) 25 % (4-12); NEUTROPHILS % (AUTO) 39 % (40-74)
[2017-02-24] MEDS: Morphine ER 30 mg (MS Contin) Tablet PO SCH ×2 (06:36→18:02)
[2017-02-24] MEDS: Insulin LISPRO 300 Unit/3 mL Inj SUBQ SCH ×4 (07:45→20:51)
[2017-02-24] MEDS: Fluticasone-Salmeterol 500-50 Inhaler INHALATION SCH ×2 (07:45→20:50)
--- NOTE | 2017-02-24 09:01 | NUR ---
Social Work-initial assessment/ readiness for discharge: Data:See initial assessment. Pt is a 67 y/o male who was admitted on 02/21/17 for sepsis per H&P. Pt's insurance is [employer] and [employer] supp and PCP is Herbert Hernandez DO. EMR Reviewed. Pt's readmission score 2. SW met with pt and friend Jasmine at bedside, SW role explained. Pt is alert and oriented x3. Pt resides at home alone in a ground floor apartment where he remains independent with ADLs. Pt has a w/c, cane, and Fww at baseline and does not drive. Pt has no HH history, but has been to [facility] in the past. SW asked about caregivers and pt states he does not want anyone taking his money. Pt has no residential care insurance or VA benefits. SW discussed DPOA/ advanced directive paperwork, pt states he has never completed this and is not interested in any information at this time. SW provided pt with discharge planning checklist and encouraged him to call with any questions. SW provided phone number and plan on white board in room. Pt confirms he will likely pay for a taxi at discharge. No anticipated discharge needs. SW will continue to follow if needs arise. Assessment:Pt who is independent at baseline. Plan:Pt to discharge home when medically stable via POV. No anticipated discharge needs. SW will continue to follow if needs arise. PATRICIA Grant Addendum: 02/24/17 at 0914 by SABA BRASWELL Amended: Links added.
--- NOTE | 2017-02-24 13:47 | NUR ---
DC Heparin drip Patient was on heparin drip. aPTT resulted at 68.6 and no change was ordered per protocol. MD assessed patient and later discontinued heparin drip.
[2017-02-24] MEDS: Tiotropium 18mcg/Cap 5 Capsule Inhaler Kit INHALATION SCH (14:34)
--- NOTE | 2017-02-24 14:50 | NUR ---
Evaluation completed. Please go to "Notes" then click on "Assessments and Notes" (bottom left corner of screen). Then select appropriate discipline tab on top of screen.
--- NOTE | 2017-02-24 14:50 | PCM.PNMED ---
Subjective Date of Service Feb 24, 2017 Subjective Patient seen and examined today. Looks good, no complains. Tolerating oral diet. Vitals stable. Exam Vital Signs Vital Sign - Last Date Time Temp Pulse Resp B/P Pulse Ox O2 Delivery O2 Flow Rate FiO2 02/24/17 14:19 88 02/24/17 14:01 36.7 18 104/67 97 Room Air 02/22/17 17:20 1.00 Intake and Output 02/23/17 02/23/17 02/24/17 Cumulative From/Thru 15:00 23:00 07:00 02/21/17 12:30 - 02/24/17 06:31 Intake Total 2009 ml 798 ml 26671 ml Output Total 1000 ml 2475 ml 15957 ml Balance 1009 ml -1677 ml 5670 ml Intake Oral 436 ml 200 ml 2036 ml IV Total 1573 ml 598 ml 37942 ml Output Urine Total 1000 ml 2475 ml 46713 ml # Bowel Movements 0 1 1 Exam Constitutional: pale, jaundice, dry. Chronically ill appearance. Talkative in no acute distress. Eyes: sclerae anicteric, Conjunctival pallor, ENMT: ears, nose atraumatic; oral mucosa dry, but improved; poor dentition Neck: supple, JVD absent Chest: symmetric, poor breathing effort with apparent thoracic pain. Mild scattered rales. No wheezes or dullness. Cardiac: Regular rate and rhythm, S1, S2, no murmur Abdomen: bowel sounds present, diffuse tenderness to palpate, well-healed scar, no organomegaly Musculoskeletal: no joints with acute erythema, swelling Skin and soft tissues: no rash; no pitting edema; slight jaundice Neurological: face symmetric, 5/5 strength, normal tone, normal movement, no tremor Psych: alert and oriented. Lab and Diagnostics Result Diagram: 02/24/17 0325 02/24/17 0325 X-Rays, CTs and MRIs PROCEDURE: X-RAY CHEST ONE VIEW, PORTABLE ([id number]) 02/21/17 IMPRESSION: Right upper lobe pneumonia, not previously present, PICC line in normal position Dictated by: Alejandro Lee M.D. on 02/21/2017 at 13:27 : IMPRESSION: 1. Interval increased extent of right upper and lower lung pneumonia. 2. Nonacute left fifth through seventh rib fractures as before. Dictated by: Francisco Beebe M.D. on 02/22/2017 at 8:05 PROCEDURE: CT ABDOMEN AND PELVIS WITH CONTRAST ([id number]) IMPRESSION: 1. Stable appearing bilateral 1.5 x 1.8 cm adrenal nodules. 2. Pancreatic head/uncinate junction mass. Stable in appearance over time. 3. Prior cholecystectomy. 4. No sign of intestinal obstruction or perforation found. Dictated by: Alejandro Lee M.D. on 02/21/2017 at 15:13 PROCEDURE: CT ANGIO CHEST PULMONARY EMBOLISM ([id number]) IMPRESSION: No pulmonary embolus seen, right sided dense pneumonia pattern present as discussed above. Moderately large hiatal hernia behind the heart. Please also refer to dedicated abdomen/pelvis CT scanning today for further discussion. Dictated by: Alejandro Lee M.D. on 02/21/2017 at 15:08 . 12-lead ECG 02/21/17 13:37 sinus tachycardia 100, intervals normal, QTC 468, left axis deviation -[address] changes. Assessment & Plan 67-year-old male with history of CAD, pancreatic cancer, COPD and chronic pain presents with acute septic shock likely secondary to pneumonia and was admitted to the ICU. # Septic shock, present on admission, improved. - On admission, patient presented with Blood pressure 88/40 with heart rate 100 , temperature 39.2, respiratory rate 22 on admission. Lactic acid 2.8. Source is right upper lobe pneumonia evidence on CXR. Hypotension unresponsive to aggressive IV fluid therapy, and thus norepinephrine was initiated in the ER. - His initial symptoms were nausea and vomiting. His status is at baseline but has clear right-sided pulmonary infiltrate. Unclear whether this is abdominal process contributing to aspiration with pneumonitis or primary community- acquired pneumonia. [facility], but no recent hospital admission. - Lactate normalized (1.2). Procalcitonin trending down. Continue to trend procalcitonin. - Continue volume resuscitation with NS @100mls/hr. PRN 500mls boluses. - Maintain MAP greater than 65 mmHg - Strict intake and output - Tolerating oral diet # Probable aspiration pneumonia vs. community acquired pneumonia, present on admission, active and improving. - Poor dentition and nausea and vomiting raise concern for aspiration pneumonia. - CXR showed extension of the pneumonia. - Viral PCR negative. - Patient has history of MRSA, but his MRSA screen is negative this time. - Appreciate Dr. Echevarria's recommendations. Continue Zosyn and levofloxacin for ICU level pneumonia sepsis. Will continue these and likely transition to oral antibiotics in a couple days. - IVF as above. # Elevated Troponin, present on admission, active and improving. - Patient is asymptomatic. EKG was normal. - Likely secondary to ischemic demand from septic shock. - Heparin gtt stopped - Trop trended down - Continue dual-antiplatelet therapy with Plavix and ASA. Continue Statin. - discussed with Dr. Green (cardiology) on phone # Neutropenia with WBC 1.9, 52% neutrophil on admission. By mouth and improving. - Unclear whether neutropenia is due to sepsis or his recent chemotherapy. Anemia hemoglobin 10.5 was likely chronic disease.. INR 1.03 on admission. No evidence of DIC. - Daily CBC - Appreciate Dr. Laguerre's input. # Normocytic anemia, likely chronic. - H/H trend down, but stable today. - Will continue serial H/H. - 2 units of PRBC on hold. - Stool occult pending. No sign of overt bleeding. # Diabetes type 2, non-insulin using, presume stable. By mouth and stable. - Patient denies insulin use at home although his med list Lantus 45 units. - Patient's BG has been less than 120 consistently without any insulin. Will D/ C Lantus orders now. - Medium correctional scale. - A1c 6.4. - Diabetic diet # Acute nausea and vomiting, present on admission, resolved. - Abdominal CT scan is unremarkable for an acute focal infection. Pancreatic cancer seems chronic, stable. Diabetes mellitus will require acute inpatient management. - Obtain GI PCR panel if he has persistent diarrhea. - Antiemetics as needed for nausea and vomiting. - Follow clinical exam for evidence of any acute GI infectious process # Encephalopathic in the emergency department. Resolved. - Likely due to acute metabolic encephalopathy from sepsis. Seems to be resolving at time of admission. - Monitor neurologic status with resuscitation # Pancreatic cancer, active. - Oncologist is Dr. Laguerre. Patient has had FOLFOX chemo with the plan to contiue for the full 12 cycles. - Will postpone the chemo therapy until the patient is discharged. - Appreciate Oncology input. # Chronic Pain. - Continue his long-acting morphine - Continue breakthrough oxycodone at present while resuscitation from sepsis # Venous thromboembolism prophylaxis: -Lovenox # GI prophylaxis: - Famotidine # Goals of care, expected hospital duration, discharge planning: - Admitted to inpatient status with expectation of care greater than 48 hours Code status: FULL. GI Prophylaxis: H2 hilary VTE Prophylaxis: Sub-Q Enoxaparin Resuscitation Status: CPR: Attempt Resuscitation Bismark Simon MD Feb 24, 2017 14:50 Bismark Simon MD Feb 24, 2017 14:50
[2017-02-24] MEDS: 0.9% Sodium Chloride 1,000 ML IV SCH ×2 (17:56→19:18)
[2017-02-24] MEDS: levoFLOXacin 750 mg Tablet PO SCH (18:01)
--- NOTE | 2017-02-24 18:20 | NUR ---
Hypotension Patient blood pressure was 90/53 at 1815. Patient is asymptomatic. MD notified. Awaiting response.
[2017-02-25] VITALS (8 sets, daily range): BP systolic 93–116; BP diastolic 53–65; PULSE 70–81; RESP 18–20; O2SAT 93–100
[2017-02-25] MEDS: Albuterol HFA 200 Puff Inhaler (Vent Pts Only) INHALATION SCH ×4 (02:30→20:30)
[2017-02-25] MEDS: Piperacillin-Tazo 3.375 Gm Inj 3.375 GM in Dextrose 5% Minibag Plus 50 ML IV SCH ×3 (03:07→20:14)
[2017-02-25] MEDS: Morphine ER 30 mg (MS Contin) Tablet PO SCH ×2 (05:52→18:07)
[2017-02-25 06:16] LABS: BASOPHILS % (AUTO) 0.4 % (0-3); EOSINOPHILS % (AUTO) 2.6 % (0-5); MONOCYTES % (AUTO) 25.7 % (4-12); Mean Corpuscular Hemoglobin 26.2 pg (27.0-35.0); Mean Corpuscular Volume 83.4 fL (81-100); NEUTROPHILS % (AUTO) 36.5 % (40-74); Platelet Count 222 bil/L (150-400)
[2017-02-25] MEDS: Insulin LISPRO 300 Unit/3 mL Inj SUBQ SCH ×4 (08:00→20:49)
[2017-02-25] MEDS: 0.9% Sodium Chloride 1,000 ML IV SCH ×2 (08:30→23:59)
[2017-02-25] MEDS: Fluticasone-Salmeterol 500-50 Inhaler INHALATION SCH ×2 (08:31→20:46)
--- NOTE | 2017-02-25 10:28 | PROG NOTE ---
[address] [address] PROGRESS NOTE PATIENT: PATTI HUMMEL : 1950 MR#: [id number] ADMIT: 02/21/2017 JOB ID: [id number] DATE: 02/25/2017 INFECTIOUS DISEASE FOLLOW UP NOTE: REASON FOR FOLLOWUP: Extensive right-sided pneumonia in a patient with underlying pancreatic cancer who is receiving FOLFOX therapy. INTERVAL HISTORY: The patient reports he is now dramatically better. He no longer has any fevers, chills or significant cough. No nausea, vomiting, diarrhea. He is able to eat a reasonable diet and he is very anxious to get out of the hospital. PHYSICAL EXAMINATION: Reveals a gentleman who is afebrile. Temperature 36.9. He has now been afebrile for 48 hours. His pulse 77, respiratory rate 20, blood pressure 93/53, saturating 93% on room air. He is alert, oriented and loquacious. Oral cavity without thrush or hairy leukoplakia. Lungs with decreased breath sounds on the right as before though perhaps a bit better in terms of more aeration but still with crackles. Cardiac tones without change. Abdomen soft and without focal tenderness. LABORATORIES: Include a white count which has risen to 5000 and his platelet count 222,000. His creatinine 0.54. LFTs normal. Procalcitonin was 36 on the . By the it was down to 9.2, and today it is down to 4.4, so his procalcitonin is falling by 50% a day consistent with a serious and systemic bacterial infection. Micro studies include negative blood cultures. Negative stool PCR. Negative MRSA screen. Negative urine antigens for Legionella and pneumococcus. No new x-rays have been done. Recall that his prior CT and chest x-ray done earlier in his hospital stay showed severe right-sided pneumonia. IMPRESSION: 1. This patient is rapidly improving in terms of his extensive pneumonia and I think he could probably be discharged as early as today. Reasonable outpatient antibiotics here would include continuing the levofloxacin for about five more days which would go through roughly March 04. As an oral agent to "replace" the Zosyn, I would use Augmentin and the dose there would be 875 p.o. b.i.d., also to be continued for about five more days. 2. I would continue the levo, Zosyn though as long as he is here in the hospital. 3. The patient wants to leave today and I see no Infectious Disease reason not to do that. 4. The patient will require a follow up chest radiograph but given his significant clinical improvement and the fact that it would not be resolved at this point, I think it is reasonable to defer that follow up chest x-ray to the outpatient arena for Dr. Laguerre or one of his other physicians to order. Thank you very much. ID will sign off at this time.
[2017-02-25] MEDS: Tiotropium 18mcg/Cap 5 Capsule Inhaler Kit INHALATION SCH (14:16)
--- NOTE | 2017-02-25 15:19 | NUR ---
Pain Patient does not complain of pain unless asked. Patient showed no signs of pain lying down, talking and watching television. When asked what his pain level was patient stated it was 10/10 pain. PRN oxycodone was administered as ordered. Patient pain was decreased when reassessed to 5/10.
--- NOTE | 2017-02-25 16:25 | PCM.PNMED ---
Subjective Date of Service Feb 25, 2017 Subjective Patient seen and examined today. He says he feels much better. Vitals stable. Exam Vital Signs Vital Sign - Last Date Time Temp Pulse Resp B/P Pulse Ox O2 Delivery O2 Flow Rate FiO2 02/25/17 12:44 36.9 75 18 116/64 100 Room Air 02/22/17 17:20 1.00 Intake and Output 02/24/17 02/24/17 02/25/17 Cumulative From/Thru 15:00 23:00 07:00 02/21/17 12:30 - 02/25/17 06:15 Intake Total 1625 ml 1502 ml 87331 ml Output Total 1325 ml 2525 ml 96132 ml Balance 300 ml -1023 ml 4947 ml Intake Oral 1136 ml 500 ml 3672 ml IV Total 489 ml 1002 ml 84506 ml Output Urine Total 1325 ml 2525 ml 27688 ml # Bowel Movements 0 1 Exam Constitutional: pale, jaundice, dry. Chronically ill appearance. Talkative in no acute distress. Eyes: sclerae anicteric, Conjunctival pallor, ENMT: ears, nose atraumatic; oral mucosa dry, but improved; poor dentition Neck: supple, JVD absent Chest: symmetric, poor breathing effort with apparent thoracic pain. Mild scattered rales. No wheezes or dullness. Cardiac: Regular rate and rhythm, S1, S2, no murmur Abdomen: bowel sounds present, diffuse tenderness to palpate, well-healed scar, no organomegaly Musculoskeletal: no joints with acute erythema, swelling Skin and soft tissues: no rash; no pitting edema; slight jaundice Neurological: face symmetric, 5/5 strength, normal tone, normal movement, no tremor Psych: alert and oriented. Lab and Diagnostics Result Diagram: 02/25/17 0555 02/25/17 0555 X-Rays, CTs and MRIs PROCEDURE: X-RAY CHEST ONE VIEW, PORTABLE ([id number]) 02/21/17 IMPRESSION: Right upper lobe pneumonia, not previously present, PICC line in normal position Dictated by: Alejandro Lee M.D. on 02/21/2017 at 13:27 07/17: IMPRESSION: 1. Interval increased extent of right upper and lower lung pneumonia. 2. Nonacute left fifth through seventh rib fractures as before. Dictated by: Francisco Beebe M.D. on 02/22/2017 at 8:05 PROCEDURE: CT ABDOMEN AND PELVIS WITH CONTRAST ([id number]) IMPRESSION: 1. Stable appearing bilateral 1.5 x 1.8 cm adrenal nodules. 2. Pancreatic head/uncinate junction mass. Stable in appearance over time. 3. Prior cholecystectomy. 4. No sign of intestinal obstruction or perforation found. Dictated by: Alejandro Lee M.D. on 02/21/2017 at 15:13 PROCEDURE: CT ANGIO CHEST PULMONARY EMBOLISM ([id number]) IMPRESSION: No pulmonary embolus seen, right sided dense pneumonia pattern present as discussed above. Moderately large hiatal hernia behind the heart. Please also refer to dedicated abdomen/pelvis CT scanning today for further discussion. Dictated by: Alejandro Lee M.D. on 02/21/2017 at 15:08 . 12-lead ECG 02/21/17 13:37 sinus tachycardia 100, intervals normal, QTC 468, left axis deviation -[address] changes. Assessment & Plan 67-year-old male with history of CAD, pancreatic cancer, COPD and chronic pain presents with acute septic shock likely secondary to pneumonia and was admitted to the ICU. # Septic shock, present on admission, improved. - On admission, patient presented with Blood pressure 88/40 with heart rate 100 , temperature 39.2, respiratory rate 22 on admission. Lactic acid 2.8. Source is right upper lobe pneumonia evidence on CXR. Hypotension unresponsive to aggressive IV fluid therapy, and thus norepinephrine was initiated in the ER. - His initial symptoms were nausea and vomiting. His status is at baseline but has clear right-sided pulmonary infiltrate. Unclear whether this is abdominal process contributing to aspiration with pneumonitis or primary community- acquired pneumonia. [facility], but no recent hospital admission. - patient still hypotensive, he says his normal bp runs at 120 systolics. He is asymptomatic with bp in 80s systolic. Will monitor today. - Lactate normalized (1.2). Procalcitonin trending down. Continue to trend procalcitonin. - Continue volume resuscitation with NS @ 80ml/hr - Maintain MAP greater than 65 mmHg - Strict intake and output - Tolerating oral diet # Probable aspiration pneumonia vs. community acquired pneumonia, present on admission, active and improving. - Poor dentition and nausea and vomiting raise concern for aspiration pneumonia. - CXR showed extension of the pneumonia. - Viral PCR negative. - Patient has history of MRSA, but his MRSA screen is negative this time. - Appreciate Dr. Echevarria's recommendations. Continue Zosyn and levofloxacin for now, switch to augmentin on discharge - IVF as above. # Elevated Troponin, present on admission - Patient is asymptomatic. EKG was normal. - Likely secondary to ischemic demand from septic shock. - Heparin gtt stopped - Trop trended down - Continue dual-antiplatelet therapy with Plavix and ASA. Continue Statin. - discussed with Dr. Green (cardiology) on phone # Neutropenia with WBC 1.9, 52% neutrophil on admission. By mouth and improving. - Unclear whether neutropenia is due to sepsis or his recent chemotherapy. Anemia hemoglobin 10.5 was likely chronic disease.. INR 1.03 on admission. No evidence of DIC. - Daily CBC - Appreciate Dr. Laguerre's input. # Normocytic anemia, likely chronic. - H/H trend down, but stable today. - Will continue serial H/H. - 2 units of PRBC on hold. - Stool occult pending. No sign of overt bleeding. # Diabetes type 2, non-insulin using, presume stable. By mouth and stable. - Patient denies insulin use at home although his med list Lantus 45 units. - Patient's BG has been less than 120 consistently without any insulin. Will D/ C Lantus orders now. - Medium correctional scale. - A1c 6.4. - Diabetic diet # Acute nausea and vomiting, present on admission, resolved. - Abdominal CT scan is unremarkable for an acute focal infection. Pancreatic cancer seems chronic, stable. Diabetes mellitus will require acute inpatient management. - Obtain GI PCR panel if he has persistent diarrhea. - Antiemetics as needed for nausea and vomiting. - Follow clinical exam for evidence of any acute GI infectious process # Encephalopathic in the emergency department. Resolved. - Likely due to acute metabolic encephalopathy from sepsis. Seems to be resolving at time of admission. - Monitor neurologic status with resuscitation # Pancreatic cancer, active. - Oncologist is Dr. Laguerre. Patient has had FOLFOX chemo with the plan to contiue for the full 12 cycles. - Will postpone the chemo therapy until the patient is discharged. - Appreciate Oncology input. # Chronic Pain. - Continue his long-acting morphine - Continue breakthrough oxycodone at present while resuscitation from sepsis # Venous thromboembolism prophylaxis: -Lovenox # GI prophylaxis: - Famotidine # Goals of care, expected hospital duration, discharge planning: - Admitted to inpatient status with expectation of care greater than 48 hours Code status: FULL. Disposition: Home once patient's overall condition improves. GI Prophylaxis: H2 hilary VTE Prophylaxis: Sub-Q Enoxaparin Resuscitation Status: CPR: Attempt Resuscitation Time spent 45 mins Bismark Simon MD Feb 25, 2017 16:25
[2017-02-25] MEDS: levoFLOXacin 750 mg Tablet PO SCH (18:06)
[2017-02-26 00:05] VITALS: BP 95/54; PULSE 73; RESP 18; O2SAT 97
[2017-02-26] MEDS: Albuterol HFA 200 Puff Inhaler (Vent Pts Only) INHALATION SCH ×2 (02:30→08:11)
[2017-02-26] MEDS: Piperacillin-Tazo 3.375 Gm Inj 3.375 GM in Dextrose 5% Minibag Plus 50 ML IV SCH ×2 (03:39→11:17)
[2017-02-26 05:12] VITALS: BP 100/60; PULSE 71; RESP 18; O2SAT 95
[2017-02-26 05:51] LABS: BASOPHILS % (AUTO) 0.5 % (0-3); EOSINOPHILS % (AUTO) 1.8 % (0-5); MONOCYTES % (AUTO) 20.5 % (4-12); Mean Corpuscular Hemoglobin 26.6 pg (27.0-35.0); Mean Corpuscular Volume 83.7 fL (81-100); NEUTROPHILS % (AUTO) 37.9 % (40-74); Platelet Count 262 bil/L (150-400)
[2017-02-26 05:54] VITALS: PULSE 80
--- NOTE | 2017-02-26 06:39 | NUR ---
Pain pt rates abdominal pain at a constant 8-10/10, ever since he had his surgery. Oxycodone given x1 with minimal effect per pt repot even though pt does not show any outward signs of pain. Pt pleasant, cooperative and in good spirits all night.
[2017-02-26] MEDS: Morphine ER 30 mg (MS Contin) Tablet PO SCH (06:44)
[2017-02-26] MEDS: 0.9% Sodium Chloride 1,000 ML IV SCH (07:26)
[2017-02-26 08:00] VITALS: PULSE 75
[2017-02-26] MEDS: Insulin LISPRO 300 Unit/3 mL Inj SUBQ SCH ×2 (08:00→11:28)
[2017-02-26 08:02] LABS: TROPONIN T 0.127 ug/L (0.0-0.011)
[2017-02-26] MEDS: Fluticasone-Salmeterol 500-50 Inhaler INHALATION SCH (08:14)
[2017-02-26] MEDS: Albuterol 1.25 mg/3 mL Inhalation Solution NEB PRN (09:14)
[2017-02-26 09:15] VITALS: PULSE 70; RESP 20; O2SAT 97
[2017-02-26 10:23] VITALS: BP 107/61; PULSE 74; RESP 18; O2SAT 95
[2017-02-26] MEDS ORDERED: AMOX-366 PO (11:39)
--- NOTE | 2017-02-26 11:53 | PCM.DIMED ---
Discharge Instructions Date of Service Feb 26, 2017 Dates of Hospitalization Feb 21, 2017 at 14:31 Discharge Diagnosis Discharge Diagnosis Sepsis 2/2 pneumonia Activity Discharge Activity: No restrictions Call your provider Call your provider for: Fever or Chills, Shortness of breath, Chest pain Patient Instructions Follow-up Provider: Jean Torres MD Follow-up with PCP in: 1 week Additional Information Monitor blood pressure at home. Drink plenty of fluids. If blood pressure goes below 100/50 consistently with dizziness, contact pcp or call [phone] Bismark Simon MD Feb 26, 2017 11:53
--- NOTE | 2017-02-26 12:39 | PCM.DC.MED ---
Discharge Summary Date of Service Feb 26, 2017 Dates of Hospitalization Date of Hospital Admission Feb 21, 2017 at 14:31 Date of Discharge: Feb 26, 2017 Providers: Admitting Physician: Bismark Everett MD Primary Care Physician: Steve Hernandez DO Attending Physician: Bismark Everett MD Diagnosis at Time of Discharge Diagnosis at Time of Discharge Sepsis 2/2 pneumonia Consultations ID Procedures XRay, CTs & MRIs PROCEDURE: X-RAY CHEST ONE VIEW, PORTABLE ([id number]) 02/21/17 IMPRESSION: Right upper lobe pneumonia, not previously present, PICC line in normal position Dictated by: Alejandro Lee M.D. on 02/21/2017 at 13:27 0703/17: IMPRESSION: 1. Interval increased extent of right upper and lower lung pneumonia. 2. Nonacute left fifth through seventh rib fractures as before. Dictated by: Francisco Beebe M.D. on 02/22/2017 at 8:05 PROCEDURE: CT ABDOMEN AND PELVIS WITH CONTRAST ([id number]) IMPRESSION: 1. Stable appearing bilateral 1.5 x 1.8 cm adrenal nodules. 2. Pancreatic head/uncinate junction mass. Stable in appearance over time. 3. Prior cholecystectomy. 4. No sign of intestinal obstruction or perforation found. Dictated by: Alejandro Lee M.D. on 02/21/2017 at 15:13 PROCEDURE: CT ANGIO CHEST PULMONARY EMBOLISM ([id number]) IMPRESSION: No pulmonary embolus seen, right sided dense pneumonia pattern present as discussed above. Moderately large hiatal hernia behind the heart. Please also refer to dedicated abdomen/pelvis CT scanning today for further discussion. Dictated by: Alejandro Lee M.D. on 02/21/2017 at 15:08 . ECG 12 Lead 02/21/17 13:37 sinus tachycardia 100, intervals normal, QTC 468, left axis deviation -[address] changes. Brief History Patient has history of coronary artery disease, pancreatic cancer, chronic pain was in his usual state of health celebrating his birthday yesterday. He has been taking normal fluids and food intake. He received his usual chemotherapy 5 days ago. He awakened this morning this morning with normal appetite. At 11 AM he experienced acute onset nausea and vomiting. This is associated with brief diarrhea. No abdominal pain. He developed mild confusion and encephalopathy but no syncope. He presented to the emergency department where they noted encephalopathy, fever and hypotension. Patient specifically denies fevers, chills, shortness of breath, cough, abdominal pain, dysuria, headache or new focal musculoskeletal pain. He has chronic left posterior rib and abdominal pain due to his pancreatic cancer. This is unchanged. He has had no new chest pain. Hospital Course 67-year-old male with history of CAD, pancreatic cancer, COPD and chronic pain presents with acute septic shock likely secondary to pneumonia and was admitted to the ICU. # Septic shock, present on admission, improved. - On admission, patient presented with Blood pressure 88/40 with heart rate 100 , temperature 39.2, respiratory rate 22 on admission. Lactic acid 2.8. Source is right upper lobe pneumonia evidence on CXR. Hypotension unresponsive to aggressive IV fluid therapy, and thus norepinephrine was initiated in the ER. - His initial symptoms were nausea and vomiting. His status is at baseline but has clear right-sided pulmonary infiltrate. Unclear whether this is abdominal process contributing to aspiration with pneumonitis or primary community- acquired pneumonia. [facility], but no recent hospital admission. - patient still hypotensive, he says his normal bp runs at 120 systolics. He is asymptomatic with bp in 100s systolic today. He says he uses a wrist bp equipment to monitor his bp. Insisted to use a cuff bp machine if he can for better read at home. I suspect his bp runs low in general. - Lactate normalized (1.2). Procalcitonin trending down. Continue to trend procalcitonin. - Continued volume resuscitation with NS @ 80ml/hr - Maintain MAP greater than 65 mmHg - Strict intake and output - Tolerating oral diet # Probable aspiration pneumonia vs. community acquired pneumonia, present on admission, active and improving. - Poor dentition and nausea and vomiting raise concern for aspiration pneumonia. - CXR showed extension of the pneumonia. - Viral PCR negative. - Patient has history of MRSA, but his MRSA screen is negative this time. - Appreciate Dr. Echevarria's recommendations. Continue Zosyn and levofloxacin for now, switched to augmentin on discharge - IVF as above. # Elevated Troponin, present on admission - Patient is asymptomatic. EKG was normal. - Likely secondary to ischemic demand from septic shock. - Heparin gtt stopped - Trop trended down - Continue dual-antiplatelet therapy with Plavix and ASA. Continue Statin. - discussed with Dr. Green (cardiology) on phone # Neutropenia with WBC 1.9, 52% neutrophil on admission. Improved - Unclear whether neutropenia is due to sepsis or his recent chemotherapy. Anemia hemoglobin 10.5 was likely chronic disease.. INR 1.03 on admission. No evidence of DIC. - Appreciate Dr. Laguerre's input. # Normocytic anemia, likely chronic. - H/H stabilized. # Diabetes type 2, non-insulin using, presume stable. By mouth and stable. - Patient denies insulin use at home although his med list Lantus 45 units. - Patient's BG has been less than 120 consistently without any insulin. Will D/ C Lantus orders now. - Medium correctional scale. - A1c 6.4. - Diabetic diet # Acute nausea and vomiting, present on admission, resolved. - Abdominal CT scan is unremarkable for an acute focal infection. Pancreatic cancer seems chronic, stable. Diabetes mellitus will require acute inpatient management. - Obtain GI PCR panel if he has persistent diarrhea. - Antiemetics as needed for nausea and vomiting. # Encephalopathic in the emergency department. Resolved. - Likely due to acute metabolic encephalopathy from sepsis # Pancreatic cancer, active. - Oncologist is Dr. Laguerre. Patient has had FOLFOX chemo with the plan to contiue for the full 12 cycles. - Will postpone the chemo therapy until the patient is discharged. - Appreciate Oncology input. # Chronic Pain. - Continue his long-acting morphine - Continue breakthrough oxycodone at present while resuscitation from sepsis # Venous thromboembolism prophylaxis: -Lovenox # GI prophylaxis: - Famotidine # Goals of care, expected hospital duration, discharge planning: - Admitted to inpatient status with expectation of care greater than 48 hours . Exam Vital Signs (Last) Date Time Temp Pulse Resp B/P Pulse Ox O2 Delivery O2 Flow Rate FiO2 02/26/17 10:23 37.0 74 18 107/61 95 Room Air 02/22/17 17:20 1.00 Test 02/21/17 12:51 02/21/17 13:38 02/21/17 14:21 02/21/17 17:50 Hold Purple Top Tube Received (Received) Hold Blue Top Tube Received (Received) Pro-B-Type Natriuretic Peptide 131.8pg/mL (0-376) Ammonia 38ug/dL (18-53) Urine Color Yellow (YELLOW) Urine Appearance Clear (CLEAR,HAZY) Urine pH 5.5 (5.0-8.0) Urine Specific [place] 1.015 (1.003-1.035) Urine Protein Negativemg/dL (NEG,TRACE) Urine Glucose (UA) Negativemg/dL (NEGATIVE) Urine Ketones Negativemg/dL (NEGATIVE) Urine Occult Blood Negative (NEGATIVE) Urine Nitrite Negative (NEGATIVE) Urine Bilirubin Negative (NEGATIVE) Urine Urobilinogen Normalmg/dL (NORMAL) Urine Leukocyte Esterase Negative (NEGATIVE) Urine RBC 0-2/hpf (0-2) Urine WBC 0-5/hpf (0-5) Urine Epithelial Cells Few/hpf (NONE-MOD) Urine Crystals None seen (NONE SEEN) Urine Bacteria Few/hpf (NONE-FEW) Urine Hyaline Casts None/lpf (NONE) Urine Granular Casts None seen (NONE SEEN) Urine Waxy Casts None seen (NONE SEEN) Urine Red Blood Cell Casts None seen (NONE SEEN) Urine White Blood Cell Casts None seen (NONE SEEN) Urine Mucus Present (None Seen) Urine Trichomonas None seen (NONE SEEN) Urine Yeast None (NONE SEEN) Urinalysis Comment None Urine Culture Reflexed Not indicated Hemoglobin A1c 6.4% (4.8-5.6) Hold Red Top Tube Received (Received) Hold [place] Top Tube Received (Received) Test 02/22/17 01:51 02/22/17 05:13 02/22/17 09:54 02/23/17 05:50 Lactic Acid Level 1.2mmol/L (0.4-2.0) Phosphorus Level 2.3mg/dL (2.5-4.9) Total Creatine Kinase 434U/L (21-232) Creatine Kinase MB 9.2ng/mL (0.0-10.4) Creatine Kinase MB % 2.1% (0.0-5.0) Prothrombin Time 14.0sec (8.1-12.5) Prothromb Time International Ratio 1.30ratio Hold [place] Top Tube Received (Received) Urine Legionella pneumophilia Ag Negative (Negative) Magnesium Level 1.6mg/dL (1.6-2.6) Test 02/24/17 03:25 02/24/17 09:51 02/25/17 05:55 02/26/17 05:30 Band Neutrophils % 5% (1-5) Metamyelocytes % 1% (0-0) Myelocytes % 1% (0-0) Hematology Comments Total Bilirubin 0.5mg/dL (0.0-1.2) Aspartate Amino Transf (AST/SGOT) 27U/L (0-50) Alanine Aminotransferase (ALT/SGPT) 14U/L (0-44) Alkaline Phosphatase 113U/L (25-160) Total Protein 4.8g/dL (6.4-8.4) Albumin 2.4g/dL (3.4-5.0) Prealbumin 4mg/dL (20-40) Activated Partial Thromboplast Time 68.6sec (22.8-33.0) Procalcitonin 4.44ng/mL (0.00-0.08) White Blood Count 6.2th/mm3 (3.8-10.1) Red Blood Count 2.82mil/mm3 (4.40-5.80) Hemoglobin 7.5g/dL (13.8-17.2) Hematocrit 23.6% (41.0-50.0) Mean Corpuscular Volume 83.7fL (81-100) Mean Corpuscular Hemoglobin 26.6pg (27.0-35.0) Mean Corpuscular Hemoglobin Concent 31.8% (32.0-37.0) Red Cell Distribution Width 19.4% (12.3-15.4) Platelet Count 262bil/L (150-400) Neutrophils (%) (Auto) 37.9% (40-74) Lymphocytes (%) (Auto) 23.9% (14-46) Monocytes (%) (Auto) 20.5% (4-12) Eosinophils (%) (Auto) 1.8% (0-5) Basophils (%) (Auto) 0.5% (0-3) Sodium Level 139mEq/L (134-144) Potassium Level 3.6mEq/L (3.5-5.2) Chloride Level 104mEq/L (97-108) Carbon Dioxide Level 22mmol/L (18-29) Blood Urea Nitrogen 8mg/dL (8-27) Creatinine 0.61mg/dL (0.76-1.27) Estimat Glomerular Filtration Rate 139mL/min (>59) Glucose Level 94mg/dL (60-99) Calcium Level 8.4mg/dL (8.5-10.1) Troponin T 0.127ug/L (0.0-0.011) Discharge Medications Discharge Medications Amoxicillin/Clav K 875-125 mg (Augmentin 875-125 mg) 1 Each Tablet 1 TABLET PO BID Prescribed by: BISMARK EVERETT MD Aspirin (Aspirin) 81 Mg Tablet 81 MG PO DAILY (Reported) Atorvastatin (Lipitor) 40 Mg Tablet 40 MG PO DAILY (Reported) Clopidogrel (Clopidogrel) 75 Mg Tablet 75 MG PO DAILY (Reported) Insulin Glargine (Lantus U100 Insulin Vial) 100 Unit/Ml Vial 45 UNIT SUBQ DAILY (Reported) Morphine Sulfate ER (MS Contin) 30 Mg Tablet.er 30 MG PO Q12H (Reported) Niacin (Niacin) 1,000 Mg Tablet.er 500 MG PO HS (Reported) Nicotine 21 mg/24 hr Patch (Nicotine 21 mg/24 hr Patch) 1 Each Patch.dysq 1 PATCH TRANSDERM DAILY (Reported) Ranitidine (Ranitidine) 300 Mg Tablet 300 MG PO HS (Reported) Tiotropium Iaeger (Spiriva) 18 Mcg Cap.w.dev 1 PUFF INH DAILY (Reported) oxyCODONE (oxyCODONE) 10 Mg Tablet 2 TAB PO Q4H (Reported) As needed Albuterol HFA (Proair HFA) 8.5 Gm Hfa.aer.ad 2 PUFF INH Q4-6H PRN PRN For Shortness of Breath (Reported) Albuterol Neb Soln (Albuterol Neb Soln) 2.5 Mg/3 Ml Vial.neb 2.5 MG INHALATION QID PRN PRN For Shortness of Breath (Reported) Insulin Human Lispro (HumaLOG U100 Insulin Vial) 100 Unit/Ml Unit 1 UNIT SUBQ Q6H PRN PRN High Blood sugar (Reported) Check blood sugars before meals and at bedtime. Use correction factor only before meals. Blood Sugar Lispro Correction: <151, 0 units; 151-200, 1 unit; 201-250, 2 units; 251-300, 3 units; 301-350, 4 units; 351-, 400, 5 units. Over 400 call MD. Ondansetron ODT (Zofran ODT) 4 Mg Tablet 4 MG PO Q4H PRN PRN For Nausea Prescribed by: SHARIF CRAIG DO diphenhydrAMINE HCl (Benadryl) 25 Mg Capsule 25 MG PO HS PRN PRN (Reported) diphenhydrAMINE HCl (Benadryl) 25 Mg Capsule 25 MG PO Q6H PRN PRN For Itching ( Reported) Followup Plan Disposition: Home Follow-up plan PCP Discharge Activity: No restrictions Patient Instructions Continue to monitor bp at home. If less than <80/50, and symptoms, to call doctor or come to ER. Follow-up Provider: Jean Torres MD Follow-up with PCP in: 1 week copies to: Jean Torres MD, Abhinav MD Feb 26, 2017 12:39
--- NOTE | 2017-02-26 12:53 | NUR ---
Social Work: Discharge Data: pt is on day 5 of hospitalization. EMR reviewed, d/c orders are in, pt discussed in rounds, no d/c planning needs at this time. [facility] will continue to follow if needs arise. Assessment: Pt who is independent at baseline. Plan: Pt will d/c home via POV today. no d/c planning needs at this time. [facility] will continue to follow if needs arise. PATRICIA Ramsey
--- NOTE | 2017-02-26 15:26 | NUR ---
Discharge Patient departed unit via wheelchair, accompanied by staff and spouse. Patient alert and oriented at discharge. Patient continues to have a dusky coloration and chronic pain. Patient denies nausea, shortness of breath, nausea, abdominal discomfort, or difficulty with elimination. Discharge instructions/medications reviewed with patient and spouse prior to discharge. All questions addressed. Discharge instructions, patient belongings and prescription in hand. Prior to discharge, patient voicing dissatisfaction with meals (no milk, no sugar,no salt), bed, and television.
== END 2017-02-26 16:22 | disposition home or self-care (01) | DRG 871 ==
LOC: SED 12:29 → CCU 14:31 → PCC 02-23 11:30 → MPC 02-23 12:22
PROVIDERS: ADMIT Internal Medicine; ATTEND Internal Medicine
DX: A41.9 Sepsis, unspecified organism (principal); J69.0 Pneumonitis due to inhalation of food and vomit; R65.21 Severe sepsis with septic shock; C25.9 Malignant neoplasm of pancreas, unspecified; I24.8 Other forms of acute ischemic heart disease; J44.9 Chronic obstructive pulmonary disease, unspecified; I25.10 Atherosclerotic heart disease of native coronary artery without angina pectoris; E11.9 Type 2 diabetes mellitus without complications; E78.5 Hyperlipidemia, unspecified; I10 Essential (primary) hypertension; I25.2 Old myocardial infarction; Z79.4 Long term (current) use of insulin; Z87.891 Personal history of nicotine dependence; Z86.73 Personal history of transient ischemic attack (TIA), and cerebral infarction without residual deficits; G89.4 Chronic pain syndrome; D70.9 Neutropenia, unspecified; D64.9 Anemia, unspecified

== ENCOUNTER 2017-03-14 09:01 | Inpatient (IN) | payer MEDICARE, MEDICAID ==
[2017-03-14] VITALS (9 sets, daily range): BP systolic 87–111; BP diastolic 40–52; PULSE 53–111; RESP 14–23; O2SAT 98–100
[~2017-03-14] VITALS: Ht 165.1 cm; Wt 66.2 kg
[~2017-03-14 09:01] MED LIST changes: +Vancomycin Dose per Pharmacist XX ONE
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
[2017-03-14] MEDS ORDERED: 0.9% Sodium Chloride 1,000 ML IV ONE ×3 (09:14→13:20)
[2017-03-14 09:50] LABS: BASOPHILS % (AUTO) 0.2 % (0-3); EOSINOPHILS % (AUTO) 0.6 % (0-5); MONOCYTES % (AUTO) 0.8 % (4-12); Mean Corpuscular Hemoglobin 27.4 pg (27.0-35.0); Mean Corpuscular Volume 86.6 fL (81-100); NEUTROPHILS % (AUTO) 96.1 % (40-74); Platelet Count 272 bil/L (150-400)
--- NOTE | 2017-03-14 09:55 | DRSVH ---
PROCEDURE: X-RAY CHEST ONE VIEW, PORTABLE ([id number]) INDICATIONS: fever TECHNIQUE: One view of the chest was acquired. COMPARISON: None. FINDINGS: Surgical changes and devices: Right arm PICC is present, tip of which is at the cavoatrial junction. Lungs and pleura: No pleural effusions or pneumothorax. Lungs are clear. Mediastinum: Mediastinal contours appear normal. Heart size is normal. Bones and chest wall: No suspicious bony lesions. Chronic left posterolateral rib fractures are pres ent, as before. Overlying soft tissues appear unremarkable. IMPRESSION: No acute process. Dictated by: Cesar Paredes M.D. on 03/14/2017 at 9:53 Approved by: Cesar Paredes M.D. on 03/14/2017 at 9:53
--- NOTE | 2017-03-14 09:58 | DRSVH ---
PROCEDURE: CT BRAIN WITHOUT CONTRAST ([id number]) INDICATIONS: ALOC, possible fall at home TECHNIQUE: Noncontrast 4.5 mm thick angled axial sections acquired from the foramen magnum to the vertex, with c oronal reformats. COMPARISON: [facility], CT, CT BRAIN WO CON, 08/18/2015, 23:02. [facility], CT, CT BRAIN WO CON, 01/24/2016, 0:53. FINDINGS: Image quality: Excellent. CSF spaces: Basal cisterns are patent. No extra-axial fluid collections. The ventricles are symmet barb in size and shape. Brain: No intracranial bleeds. There is artifact versus an extra-axial 14 mm diameter soft tissue de nsity focus at the anterior aspect of the left cerebellar hemisphere, which was not seen on the prior examination. There is cerebral volume loss for age, with resultant ventricular and sulcal prominence . There are periventricular and deep white matter chronic small vessel ischemic changes. There is i ntracranial internal carotid artery atherosclerosis. Skull and face: Calvarium and visualized facial bones appear intact, without suspicious lesions. Sinuses: Visualized sinuses and mastoids are clear. IMPRESSION: 1. No acute process. 2. Possible left posterior fossa meningioma. This could be further assessed with MRI with and without intravenous contrast, if clinically indicated. Dictated by: Cesar Paredes M.D. on 03/14/2017 at 9:54 Approved by: Cesar Paredes M.D. on 03/14/2017 at 9:56
[2017-03-14 10:28] LABS: TROPONIN T 0.01 ug/L (0.0-0.011)
[2017-03-14 10:40] LABS: Magnesium 1.7 mg/dL (1.6-2.6)
[2017-03-14] MEDS ORDERED: 0.9% Sodium Chloride 1,000 ML IV SCH ×2 (10:50→11:08)
[2017-03-14] MEDS ORDERED: Vancomycin Inj 1,500 MG in 0.9% Sodium Chloride 500 ML IV ONE (10:50)
[2017-03-14] MEDS ORDERED: Piperacillin-Tazo 3.375 Gm Inj 3.375 GM in Dextrose 5% Minibag Plus 50 ML IV ONE (10:50)
[2017-03-14] MEDS ORDERED: Alum-Mag Hydrox-Simeth 30 mL Suspension PO PRN (11:10)
[2017-03-14] MEDS ORDERED: Ondansetron 2 mg/mL 2 mL Inj IVPUSH PRN ×2 (11:10→11:20)
[2017-03-14] MEDS ORDERED: GLPZ5T PO (11:11)
[2017-03-14] MEDS ORDERED: SYMINH INHALATION (11:11)
[2017-03-14] MEDS ORDERED: GLIP5POW MC (11:11)
[2017-03-14] MEDS ORDERED: Glucose 40% Oral Gel 15 Gm Tube PO PRN (11:20)
[2017-03-14] MEDS ORDERED: Polyethylene Glycol (PEG) 17 Gm Powder PO PRN (11:20)
[2017-03-14] MEDS: Insulin LISPRO 300 Unit/3 mL Inj SUBQ SCH ×3 (12:00→22:00)
[2017-03-14] MEDS: 0.9% Sodium Chloride 1,000 ML IV SCH ×3 (13:21→20:46)
--- NOTE | 2017-03-14 13:39 | PCM.HPMED ---
Subjective Date of Service Mar 14, 2017 Primary Provider: Admitting Physician: Varun Cook MD Primary Care Physician: Steve Hernandez DO Attending Physician: Varun Cook MD Admit Status: From the Emergency Department, Full Admit, [facility] Telemetry Chief Complaint: Syncopal episode confusion and gait ataxia. History of Present Illness: This is a 67-year-old gentleman who was recently in the hospital for pneumonia. He had done well over the last 2 weeks. He has pancreas cancer recurrence this and is currently on palliative chemotherapy. He had chemotherapy on and felt well on Wednesday and Wednesday. This morning he was found on the floor and needed assistance getting up and is very unstable on his feet and somewhat confused. The patient initially declined ambulance however family to call the ambulance he was brought to the ER. Here the patient is quite somnolent and unable to participate in review of systems or subjective. He can answer no questions overall for any information on what happened this morning. In the ER he was found to be volume depleted, hypotensive, somnolent and afebrile. He had a mild leukocytosis and a normal lactic acid. Review of Systems: Review of systems is not obtainable due to altered mental status. Allergies Coded Allergies: acetaminophen (Verified Adverse Reaction, Severe, 02/25/17) "Really bad stomach pain." Pt has had IV acetaminophen, tolerated well. NSAIDS (Non-Steroidal Anti-Inflamma (Verified Adverse Reaction, Mild, GI intolerance to some, tolerates diclofenac daily, 02/21/17) aspirin (Verified Adverse Reaction, Mild, GI intolerance at high doses, but tolerates low dose OK, 02/21/17) Uncoded Allergies: FISH (Allergy, Mild, Diarrhea, 04/14/16) GARLIC (Allergy, Unknown, 12/31/13) Home Medications Aspirin (Aspirin) 81 Mg Tablet 81 MG PO DAILY Atorvastatin (Lipitor) 40 Mg Tablet 40 MG PO DAILY Budesonide/Formoterol 160-4.5 mcg Inh (Symbicort 160-4.5 mcg Inh) 120 Puff Inhaler 2 PUFF INHALATION BID Clopidogrel (Clopidogrel) 75 Mg Tablet 75 MG PO DAILY Glipizide (Glipizide) 5 Gm Powder 2.5 GM MC MORNING Glipizide (Glipizide) 5 Mg Tablet 5 MG PO DAILY Insulin Glargine (Lantus U100 Insulin Vial) 100 Unit/Ml Vial 45 UNIT SUBQ DAILY Morphine Sulfate ER (MS Contin) 30 Mg Tablet.er 30 MG PO Q12H Niacin (Niacin) 1,000 Mg Tablet.er 500 MG PO HS Ranitidine (Ranitidine) 300 Mg Tablet 300 MG PO HS Tiotropium [place] (Spiriva) 18 Mcg Cap.w.dev 1 PUFF INH DAILY oxyCODONE (oxyCODONE) 10 Mg Tablet 2 TAB PO Q4H Scheduled PRN Albuterol HFA (Proair HFA) 8.5 Gm Hfa.aer.ad 2 PUFF INH Q4-6H PRN PRN For Shortness of Breath Albuterol Neb Soln (Albuterol Neb Soln) 2.5 Mg/3 Ml Vial.neb 2.5 MG INHALATION QID PRN PRN For Shortness of Breath Insulin Human Lispro (HumaLOG U100 Insulin Vial) 100 Unit/Ml Unit 1 UNIT SUBQ Q6H PRN PRN High Blood sugar Check blood sugars before meals and at bedtime. Use correction factor only before meals. Blood Sugar Lispro Correction: <151, 0 units; 151-200, 1 unit; 201-250, 2 units; 251-300, 3 units; 301-350, 4 units; 351-, 400, 5 units. Over 400 call MD. Ondansetron ODT (Zofran ODT) 4 Mg Tablet 4 MG PO Q4H PRN PRN For Nausea diphenhydrAMINE HCl (Benadryl) 25 Mg Capsule 25 MG PO Q6H PRN PRN For Itching PMH His nose Recurrent pancreas cancer. MRSA Continuous opiate dependence CAD with history of myocardial infarction Surgical History Bilateral carotid endarterectomy. Remote Whipple procedure Family History Not obtainable. Social History Hx Alcohol Use: No (stopped 1998) Hx Substance Use: No (per no history) Hx Tobacco Use: Yes Smoking Status: Former Smoker Living Arrangement: Assisted Living Exam Vital Signs Vital Sign - Last Date Time Temp Pulse Resp B/P Pulse Ox O2 Delivery O2 Flow Rate FiO2 03/14/17 13:09 75 03/14/17 12:35 38.2 19 94/40 98 Room Air Exam Somnolent. No distress. Not speaking, appears chronically ill. Normal skull. Normal nose and ears. Anicteric sclera, symmetric pupils Oropharynx is dry with very dry oral mucosa, no facial droop. Neck is supple, normal thyroid. No adenopathy. Decreased skin turgor Lungs are clear, normal effort rate. Heart is regular without murmur gallop or rub. Abdomen soft, distended or tender. No organomegaly Extremities are free of pedal edema. Good radial and pedal pulses. Somewhat dynamic. Skin is free of rash, lesions. No petechiae or ecchymosis. Joints are grossly normal. Cranial nerves are grossly normal. Normal muscular tone. Lab and Diagnostics Result Diagram: 03/14/1792903/[id number]/17929 X-Rays, CTs and MRIs Head CT: 1. No acute process. 2. Possible left posterior fossa meningioma. This could be further assessed with MRI with and without intravenous contrast, if clinically indicated. Dictated by: Cesar Paredes M.D. on 03/14/2017 at 9:54 Approved by: Cesar Paredes M.D. on 03/14/2017 at 9:56 Chest x-ray is unremarkable. Assessment & Plan 1. Sepsis, the serious criteria met with white count, heart rate, and also mental status. Source of infection is presumed recurrent aspiration verses HCAP pneumonia. POA. His fluid resuscitation to a map over 65, current lactic acid, empiric antibiotics with Zosyn for possible aspiration pneumonia as well as vancomycin given history of MRSA. 2. Volume depletion, POA. Fluid resuscitation 3. Diabetes mellitus 2, POA. Correctional lispro and 5 Lantus at bedtime 4. Pancreatic cancer, recurrent. POA. Stable. The patient is at risk for cholangitis will assess liver function tests. 5. Continues opiate dependence, POA. We will use morphine for pain. Watch for withdrawal. 6. CAD, POA. Presumed stable. Follow clinically. Full resuscitation He is admitted inpatient status with an anticipated length of stay of greater than 2 nights. Pain Evaluation: Adequate Pain Control Resuscitation Status: CPR: Attempt Resuscitation Time spent 40 minutes Varun Cook MD Mar 14, 2017 13:39
[2017-03-14] MEDS: Piperacillin-Tazo 3.375 Gm Inj 3.375 GM in Dextrose 5% Minibag Plus 50 ML IV SCH ×2 (15:00→23:10)
[2017-03-14 16:09] LABS: APPEARANCE,URINE CLEAR (CLEAR,HAZY); COLOR,URINE YELLOW (YELLOW); OCCULT BLOOD,URINE NEGATIVE (NEGATIVE); PH,URINE 5.5 (5.0-8.0); UROBILINOGEN,URINE NORMAL (NORMAL)
[2017-03-14] MEDS: Heparin 5,000 Unit/mL Inj SUBQ SCH ×2 (16:30→23:09)
--- NOTE | 2017-03-14 18:00 | NUR ---
12:30 admit to [facility] from [facility] Pt awake, Ox3; Spouse @ bedside. See EMR admission screens; completed by Admission & Med Rec RN.
[2017-03-14] MEDS: Insulin GLARgine 100 Unit/mL Syringe SUBQ SCH (23:10)
[2017-03-15 03:10] VITALS: BP 122/43; PULSE 54; RESP 18; O2SAT 98
[2017-03-15 05:27] LABS: BASOPHILS % (AUTO) 0.2 % (0-3); EOSINOPHILS % (AUTO) 1.3 % (0-5); MONOCYTES % (AUTO) 2.3 % (4-12); Mean Corpuscular Hemoglobin 27.4 pg (27.0-35.0); Mean Corpuscular Volume 87.5 fL (81-100); Platelet Count 223 bil/L (150-400)
--- NOTE | 2017-03-15 06:12 | NUR ---
Comfort Patient complains of abdominal pain which is chronic for him. 1mg IV Morphine given and patient continues to rate his pain at a 10 after this dose. Another mg is administered and patient states he is 'comfortable' and able to fall asleep. Patient denies any future offers of pain medication. Requests to be on his right side for comfort, declines turning off of it later. "This is the side that I sleep on". Education provided to the patient on them importance of frequent repositioning.
[2017-03-15] MEDS ORDERED: KCl 40 mEq/100 mL (CENTRAL) 40 MEQ in IV Premix 1 EACH IV ONE (06:15)
[2017-03-15] MEDS ORDERED: KCl 40 mEq/D5W 500 mL 40 MEQ in IV Premix 1 EACH IV ONE (06:28)
[2017-03-15] MEDS: Piperacillin-Tazo 3.375 Gm Inj 3.375 GM in Dextrose 5% Minibag Plus 50 ML IV SCH ×3 (06:33→23:17)
[2017-03-15] MEDS: 0.9% Sodium Chloride 1,000 ML IV SCH ×2 (07:19→14:56)
[2017-03-15] MEDS: Insulin LISPRO 300 Unit/3 mL Inj SUBQ SCH ×4 (08:00→21:21)
[2017-03-15] MEDS: Heparin 5,000 Unit/mL Inj SUBQ SCH ×3 (08:30→23:17)
--- NOTE | 2017-03-15 08:49 | PROG NOTE ---
[address] [address] PROGRESS NOTE PATIENT: PATTI HUMMEL : 1950 MR#: [id number] ADMIT: 03/14/2017 JOB ID: [id number] DATE: 03/15/2017 SUBJECTIVE: The patient is a 67-year-old gentleman hospitalized with possible sepsis after a syncopal episode at the [facility] while he was leaving the bathroom. He had a systolic pressure of 86 when initially encountered by the paramedics. CT of the brain showed no acute process. There was a left posterior fossa meningioma. He had a chest x-ray that showed no acute process. He was febrile to 38.2 degrees centigrade. Cultures were obtained, and he was started on broad-spectrum antibiotic coverage with piperacillin/tazobactam 3.375 g IV q.8 hours. He has been afebrile overnight. 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 He had a 4.3 x 3.5 cm mass arising from the mucosal wall of the ampulla, involving the common bile duct and portal vein with high-grade distal common bile duct strictures. He underwent a Whipple surgery with Dr. 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 A celiac lymph node showed reactive changes without evidence of carcinoma. He had a very long and complicated postoperative course, spending time it in [facility] in [place] for about two months, during which he lost about 60 pounds. He previously had a feeding tube, which fell out. More recently, he has been receiving FOLFOX chemotherapy, with his most recent treatment administered from March 11 through March 13, 2017 last week. OBJECTIVE: Vitals: T-max 38.2, P 54-111, RR 14-20, BP 88/41 to 122/43. HEENT: Conjunctivae pale, mucous membranes slightly dry. No oral lesions. Nodes: No adenopathy in the neck or axilla. Chest clear, no wheezes or crackles. Cardiac exam regular rate and rhythm with normal S1, S2, no murmurs appreciated. Abdomen soft, nontender, normoactive bowel tones. No splenomegaly or masses. A well-healed surgical wounds. Extremities: No edema, 2+ distal pulses. No calf tenderness. LABORATORIES: WBC 10.5 with 89% neutrophils, hemoglobin 7.9, hematocrit 25.2%, platelets 223,000. Sodium 141, potassium 3.1. BUN 12, creatinine 0.43. Glucose 80. AST 32, ALT 18, alkaline phosphatase 93. Ammonia-not obtained. ASSESSMENT AND PLAN: Probable sepsis: The patient was admitted with a diagnosis of possible sepsis. He has fever, but no evidence of neutropenia. Cultures have been obtained and are negative at 24 hours. He remains on broad-spectrum antibiotic coverage with piperacillin/tazobactam and has been has been afebrile for the past 18 hours. He has anemia, but no indication for transfusion support. He has hypokalemia, which will be corrected by the hospitalist team. Blood pressure has stabilized with IV fluid administration. Continue to monitor. [facility], prior to which we will obtain CT imaging of the chest, abdomen, and pelvis with contrast to assess his tumor burden.
--- NOTE | 2017-03-15 10:53 | NUR ---
Evaluation completed. Please go to "Notes" then click on "Assessments and Notes" (bottom left corner of screen). Then select appropriate discipline tab on top of screen.
--- NOTE | 2017-03-15 10:59 | NUR ---
took over care at 11:00 am
--- NOTE | 2017-03-15 11:01 | NUR ---
Social Work Note: Multidisciplinary Rounds Pt was discussed in AM rounds today, per MD pt is not medically ready for discharge at this time. Pt was found down on the bathroom floor. Per MD pt has Dx of pancreatic cancer and is receiving palliative chemotherapy. No MD orders identified at this time. SW to follow up with pt regarding initial assessment and any discharge planning needs. SW to continue to follow. PATRICIA Medel
[2017-03-15] MEDS ORDERED: Sodium Chloride LOK Flush 10 mL Syringe IVFLUSH PRN ×2 (11:40)
[2017-03-15 11:50] VITALS: BP 131/53; PULSE 60; RESP 18; O2SAT 100
[2017-03-15] MEDS: Linezolid Inj 600 MG in IV Premix 1 EACH IV SCH ×2 (14:56→20:23)
[2017-03-15 16:32] VITALS: BP 115/57; PULSE 57; RESP 18; O2SAT 100
--- NOTE | 2017-03-15 16:37 | PCM.PNMED ---
Subjective Date of Service Mar 15, 2017 Subjective He remains afebrile and 100 % on Room air. He reports feeling better than the day before. He continues to reports pain even to the slightest touch on his abdomen and chest diffusely. He is alert and oriented x3. No Overnight Events. Exam Vital Signs Vital Sign - Last Date Time Temp Pulse Resp B/P Pulse Ox O2 Delivery O2 Flow Rate FiO2 03/15/17 03:10 37.1 54 18 122/43 98 Room Air Intake and Output 03/14/17 03/14/17 03/15/17 Cumulative From/Thru 15:00 23:00 07:00 03/14/17 09:01 - 03/15/17 06:20 Intake Total 2000 ml 0 ml 1779 ml 3779 ml Output Total 1150 ml 1150 ml 2300 ml Balance 2000 ml -1150 ml 629 ml 1479 ml Intake Oral 0 ml 0 ml 0 ml IV Total 2000 ml 1779 ml 3779 ml Output Urine Total 1150 ml 1150 ml 2300 ml # Bowel Movements 0 0 0 Exam General: No acute distress, well-developed, well-nourished, appropriately interactive HEENT: Normocephalic, atraumatic. External ears without defect. Pupils equal, round, and reactive to light and accommodation. Anicteric sclerae, moist conjunctivae, and no lid lag. Oropharynx free of erythema and cobble stoning with moist mucosa. Neck: Supple with full range of motion. No jugular venous distension. No bruits. No lymphadenopathy or thyromegaly. Cardiovascular: Regular rate and rhythm with no murmurs, rubs, or gallops appreciated Pulmonary: Clear to auscultation bilaterally with no crackles, wheezes, or rhonchi. Normal respiratory effort with no use of accessory muscles. Abdomen: Bowel tones present. Soft, nontender, nondistended. No hepatosplenomegaly or masses appreciated. Extremities: No clubbing, cyanosis, edema, or lymphadenopathy appreciated. Skin: Normal temperature, turgor, and texture; no rash, ulcers, or subcutaneous nodules appreciated. Neurological: Cranial nerves grossly intact. Normal muscle strength, tone, and bulk. Reflexes, coordination, and sensory function within normal limits. No known gait impairment. Psychiatric: Normal mood and affect. Alert and oriented to person, place, and time. IVs and Medications Medications Reviewed: Medications were reviewed in detail Lab and Diagnostics Result Diagram: 03/15/1739903/15/17399 X-Rays, CTs and MRIs Head CT: 1. No acute process. 2. Possible left posterior fossa meningioma. This could be further assessed with MRI with and without intravenous contrast, if clinically indicated. Dictated by: Cesar Paredes M.D. on 03/14/2017 at 9:54 Approved by: Cesar Paredes M.D. on 03/14/2017 at 9:56 Chest x-ray is unremarkable. Assessment & Plan This is a 67-year-old gentleman who was recently in the hospital for pneumonia. He has pancreas cancer recurrence this and is currently on palliative chemotherapy on and felt well on Wednesday and Wednesday. He was admitted after being found on the floor and needed assistance getting up and was very unstable on his feet and somewhat confused. He is currently being worked up for sepsis 2nd to possible pneumonia. Sepsis, likely 2nd to pneumonia, aspiration verses HCAP. Present on admission. Active. - WBC 12.7 (96% Neut), HR 111, altered mental status. - Source of infection is presumed recurrent aspiration verses HCAP pneumonia. POA. - Continue fluid resuscitation to a map over 65. - Lactic acid within normal limits. - Procalcitonin 21.7. - Blood cx x2 negative. Sputum pending. MRSA swab pending. - Empiric antibiotics with Zosyn for possible aspiration pneumonia and given history of MRSA we will start linezolid. Acute Volume depletion, Present on admission. Active. - Continue Fluid resuscitation Diabetes mellitus 2, Present on admission. Controlled. - Correctional lispro and 5 Lantus at bedtime - HA1c 6.4 - Holding home glipizide. Pancreatic cancer, recurrent. Present on admission.Stable. The patient is at risk for cholangitis will assess liver function tests. Continues opiate dependence, Present on admission. . We will use morphine for pain. Watch for withdrawal. CAD, Present on admission.Presumed stable. - Troponin negative. - Follow clinically. Full resuscitation High Risk Medications: IV Morphine PRN. He is admitted inpatient status with an anticipated length of stay of greater than 2 nights. Pain Evaluation: Adequate Pain Control VTE Mechanical Devices: Intermittant Pneumatic CD Resuscitation Status: CPR: Attempt Resuscitation Attending Statement The patient was seen and examined together with Dr. Jung on 03/14/2017 and I agree with the history, exam findings, and plan as outlined in the note above. I did participate in all aspects of the services provided today, including documentation and the plan of care. The patient will continue to be treated for probable pneumonia with sepsis with IV antibiotics. We will follow mitral data. The patient has been fluid resuscitated. COLLINS Myers M.D., DO Mar 15, 2017 09:02 Varun Cook MD Mar 16, 2017 09:26
--- NOTE | 2017-03-15 18:25 | NUR ---
pain Pt c/o 10/ abdominal pain. Giving 2mg Morphine IV. Up to bathroom with loose stool. Gave potassium rider. Labs sent.
[2017-03-15] MEDS ORDERED: KCl 40 mEq/500 mL D5W(K 3 - 3.7 & Creat < 2) IV ONE (19:30)
[2017-03-15 20:00] VITALS: PULSE 61
[2017-03-15 20:10] VITALS: BP 111/51; PULSE 69; RESP 16; O2SAT 100
[2017-03-15] MEDS: Insulin GLARgine 100 Unit/mL Syringe SUBQ SCH (21:24)
[2017-03-15 23:16] VITALS: BP 138/65; PULSE 60; RESP 20; O2SAT 99
[2017-03-16] VITALS (7 sets, daily range): BP systolic 125–164; BP diastolic 60–74; PULSE 48–61; RESP 20–22; O2SAT 99–100
[2017-03-16] MEDS: 0.9% Sodium Chloride 1,000 ML IV SCH ×2 (00:19→07:18)
[2017-03-16] MEDS ORDERED: KCl 40 mEq/100 mL Premix (K 3 - 3.7 & Creat < 2) IV ONE (04:15)
[2017-03-16] MEDS: Piperacillin-Tazo 3.375 Gm Inj 3.375 GM in Dextrose 5% Minibag Plus 50 ML IV SCH ×3 (06:14→22:16)
--- NOTE | 2017-03-16 06:23 | NUR ---
Pain/sats Continues to c/o chronic abdominal pain, that is relieved with use of IV morphine. Sats have been in upper 90s on room air. Up to bathroom with standby assist. Continues on contact precautions for history of MRSA. at bedside.
[2017-03-16] MEDS ORDERED: Vancomycin Dose per Pharmacist XX SCH (08:30)
[2017-03-16] MEDS: Insulin LISPRO 300 Unit/3 mL Inj SUBQ SCH ×4 (09:16→21:31)
[2017-03-16] MEDS: Heparin 5,000 Unit/mL Inj SUBQ SCH ×2 (09:19→16:42)
[2017-03-16] MEDS: Linezolid Inj 600 MG in IV Premix 1 EACH IV SCH ×2 (09:20→20:09)
--- NOTE | 2017-03-16 11:03 | NUR ---
DIRECTOR OF ANALYTICS re-evaluation order received. Pt is on select general diet with no steak or raw veggies, per pt request from yesterday. No swallowing dysfunction was observed yesterday and diet order was placed due to pt's preference and dentition. Pt is not an aspiration risk. Further discussion with RN revealed that pt was requesting food from the public cafeteria rather than pt prepared meals, due to preference in preparation style. Diet is general/thin. Pt may eat what he likes. No dysphagia eval or tx is warranted at this time. DIRECTOR OF ANALYTICS will d/c order.
--- NOTE | 2017-03-16 15:15 | NUR ---
transfer pt transferred to [facility] from [facility]. pt was able to transfer to an [facility] bed from a W/C. pt denies pain or SOB. pt does state that he wants to sign paperwork to eat whatever he wants. paperwork signed and put in chart.
--- NOTE | 2017-03-16 15:39 | NUR ---
Transfer [facility] Patient a/o x 4, c/o abd pain, requesting pain meds q 4 hrs per his home dose, Morphine given with good effect. Patient amb in room with sba esteban fair, having loose stools x 2. Patient taking diet fair. VSS, tele SB-SR 50-60's. Report called to Haven MILLER. Patient transferred via wheelchair with all belongings and accompanied by to [id number] without incident.
--- NOTE | 2017-03-16 18:32 | PCM.PNMED ---
Subjective Date of Service Mar 16, 2017 Subjective Overnight events: NONE. He remains afebrile and 100 % on Room air and normal white count. He reports feeling 75% back to baseline. His abdominal pain is completely resolved. He is alert and oriented x3. He denies headache, dizziness, sore throat, cough, chest pain, shortness of breath, abdominal pain, nausea, vomiting, constipation. The patient is voiding and eliminating without difficulty. The patient is ambulating without difficulty. He reports some continued diarrhea. Exam Vital Signs Vital Sign - Last Date Time Temp Pulse Resp B/P Pulse Ox O2 Delivery O2 Flow Rate FiO2 03/16/17 15:42 36.7 61 20 156/69 100 Room Air Intake and Output 03/15/17 03/15/17 03/16/17 Cumulative From/Thru 15:00 23:00 07:00 03/14/17 09:01 - 03/16/17 06:26 Intake Total 1040 ml 3228 ml 8047 ml Output Total 1400 ml 2050 ml 5750 ml Balance -360 ml 1178 ml 2297 ml Intake Oral 1040 ml 200 ml 1240 ml IV Total 3028 ml 6807 ml Output Urine Total 1400 ml 2050 ml 5750 ml # Voids 4 4 # Bowel Movements 2 1 3 Exam General: No acute distress, well-developed, well-nourished, appropriately interactive HEENT: Normocephalic, atraumatic. External ears without defect. Pupils equal, round, and reactive to light and accommodation. Anicteric sclerae, moist conjunctivae, and no lid lag. Oropharynx free of erythema and cobble stoning with moist mucosa. Neck: Supple with full range of motion. No jugular venous distension. No bruits. No lymphadenopathy or thyromegaly. Cardiovascular: Regular rate and rhythm with no murmurs, rubs, or gallops appreciated Pulmonary: Clear to auscultation bilaterally with no crackles, wheezes, or rhonchi. Normal respiratory effort with no use of accessory muscles. Abdomen: Bowel tones present. Soft, nontender, nondistended. No hepatosplenomegaly or masses appreciated. Extremities: No clubbing, cyanosis, edema, or lymphadenopathy appreciated. Skin: Normal temperature, turgor, and texture; no rash, ulcers, or subcutaneous nodules appreciated. Neurological: Cranial nerves grossly intact. Normal muscle strength, tone, and bulk. Reflexes, coordination, and sensory function within normal limits. No known gait impairment. Psychiatric: Normal mood and affect. Alert and oriented to person, place, and time. IVs and Medications Medications Reviewed: Medications were reviewed in detail Lab and Diagnostics Result Diagram: 03/15/17 0400 03/16/17 1050 X-Rays, CTs and MRIs Head CT: 1. No acute process. 2. Possible left posterior fossa meningioma. This could be further assessed with MRI with and without intravenous contrast, if clinically indicated. Dictated by: Cesar Paredes M.D. on 03/14/2017 at 9:54 Approved by: Cesar Paredes M.D. on 03/14/2017 at 9:56 Chest x-ray is unremarkable. Assessment & Plan This is a 67-year-old gentleman who was recently in the hospital for pneumonia. He has pancreas cancer recurrence this and is currently on palliative chemotherapy on and felt well on Wednesday and Wednesday. He was admitted after being found on the floor and needed assistance getting up and was very unstable on his feet and somewhat confused which has now completely resolved. Sepsis, likely 2nd to pneumonia, aspiration verses HCAP. Present on admission. Resolved. - On Admit WBC 12.7 (96% Neut), HR 111, altered mental status., All resolved. - Source of infection is presumed recurrent aspiration verses HCAP pneumonia. POA. - Lactic acid within normal limits. - Procalcitonin trending down. - Blood cx x2 negative. Sputum pending. MRSA swab pending. - Empiric antibiotics with Zosyn for possible aspiration pneumonia and given history of MRSA we will start linezolid. Diabetes mellitus 2, Present on admission. Controlled. - Correctional lispro and 5 Lantus at bedtime - HA1c 6.4 - Holding home glipizide. Pancreatic cancer, recurrent. Present on admission.Stable. The patient is at risk for cholangitis will assess liver function tests. Continues opiate dependence, Present on admission. . We will use morphine for pain. Watch for withdrawal. CAD, Present on admission.Presumed stable. - Troponin negative. - Follow clinically. Acute Volume depletion, Present on admission. Resolved. Full resuscitation High Risk Medications: IV Morphine PRN. He is admitted inpatient status with an anticipated length of stay of greater than 2 nights. Pain Evaluation: Adequate Pain Control VTE Mechanical Devices: Venous Foot Pump Resuscitation Status: CPR: Attempt Resuscitation Attending Statement The patient was seen and examined together with Dr. Dr. Hernandez on 03/16/2017 and I agree with the history, exam findings, and plan as outlined in the note above. I did participate in all aspects of the services provided today, including documentation and the plan of care. Patient is improving clinically with treatment for presumed aspiration pneumonia. We will continue our current plan and ambulate. He may be improved enough for discharge in approximately 2 days. COLLINS HERNANDEZ DO Mar 16, 2017 18:32 Varun Cook MD Mar 17, 2017 09:01
--- NOTE | 2017-03-16 18:40 | DRSVH ---
PROCEDURE: CT CHEST, ABDOMEN AND PELVIS [facility] CONTRAST ([id number]) INDICATIONS: Pancreatic cancer TECHNIQUE: After the administration of oral and intravenous contrast, 5 mm thick sections acquired from the lung apices to the symphysis. 5 mm coronal and sagittal reformats were performed, with additional 7 mm c oronal MIP reformats through the lungs. For radiation dose reduction, the following was used: autom ated exposure control, adjustment of mA and/or kV according to patient size. COMPARISON: [facility], CT, CT ABD PELVIS W CON, 01/01/2017, 10:07. [facility], [place], PET NECK TO MID THIGH STD, 11/03/2016, 8:18. [facility], CT, CT ANGIO CHEST PE, , 18:30. [facility], CT, CT CHEST ABD PELVIS W CON, 08/18/2015, 23:02. FINDINGS: Image quality: Good CHEST: Lungs and pleura: The there is a small left apical nodular scar approximately 7 or 8 mm is unchanged since 08/28/16 CT. There are 2 adjacent new small irregular nodular densities in the superior segment o f the right lower lobe measuring 9 and 4 mm. These could be inflammatory. Less likely would be metast atic. No other lung nodules are seen. The lung bases there patchy areas of subsegmental atelectasis o r infiltrate there have changed in pattern since previous imaging. No pleural effusions or pneumothor ax. Central and peripheral airways appear patent and normal in caliber. Mediastinum: Heart size is normal. No pericardial effusion. No mediastinal or hilar adenopathy by size criteria. Thoracic aorta and central pulmonary arteries are normal in size. Esophagus is hannah l in caliber. There is a moderate-sized hiatal hernia. Chest wall: No axillary or supraclavicular adenopathy by size criteria. Thyroid gland suggests a ri ght lobe is mildly enlarged there is a PICC line from the right arm. There is.. The right is 17 mm an d the left 22 mm. Based upon the recent PET/CT these are considered benign. The kidneys demonstrate n ormal size and enhancement, without hydronephrosis. Peritoneum and bowel: Bowel loops demonstrate normal wall thickness and caliber. No free fluid or a ir. Nodes and vessels: No retroperitoneal or mesenteric adenopathy by size criteria. Aorta and inferior vena cava are normal in size. Miscellaneous: No ventral hernias. PELVIS: Genitourinary: Bladder wall thickness is normal. Prostate is not enlarged. Miscellaneous: No inguinal hernias or adenopathy. Bones: No suspicious bony lesions. No vertebral body compression fractures. IMPRESSION: 1. Patient status post Whipple procedure in the past for pancreatic cancer. No evidence for adenopath y or loss of fat planes or recurrent mass is seen in the region of the pancreas in surgical bed. 2. Bilateral adrenal nodules unchanged in size and on PET/CT considered because of renal activity, be nign. 3. Appearance of 2 new small lung nodules in the superior segment of the right lower lobe probably in flammatory. Less likely would be metastatic disease. Followup of this in [address] of the thor ax without contrast may be useful. 4. Moderate to large hiatal hernia. Dictated by: Nacho Victor M.D. on 03/16/2017 at 18:26 Approved by: Nacho Victor M.D. on 03/16/2017 at 18:38
[2017-03-16] MEDS: Insulin GLARgine 100 Unit/mL Syringe SUBQ SCH (22:10)
[2017-03-17] VITALS (7 sets, daily range): BP systolic 104–113; BP diastolic 55–71; PULSE 50–59; RESP 18; O2SAT 96–100
[2017-03-17] MEDS: Heparin 5,000 Unit/mL Inj SUBQ SCH ×3 (00:40→15:51)
[2017-03-17] MEDS: Piperacillin-Tazo 3.375 Gm Inj 3.375 GM in Dextrose 5% Minibag Plus 50 ML IV SCH ×2 (06:20→15:47)
[2017-03-17] MEDS: Insulin LISPRO 300 Unit/3 mL Inj SUBQ SCH (08:00)
--- NOTE | 2017-03-17 09:03 | NUR ---
Social Work-initial assessment: Data:See initial assessment. Pt is a 67 y/o male who was admitted on 03/14/17 for sepsis per H&P. Pt's insurance is [facility] and [facility] and PCP is Herbert Hernandez DO. EMR Reviewed. Pt's readmission score is 5-high risk. SW met with pt to discuss discharge planning, SW role explained. Pt is a readmission discharging home no needs.Pt is alert and oriented x3. Pt resides at home in a house where he rents a room with no assistance. Pt uses a cane at baseline and does occasionally drive. Pt's brother assists with transport. Pt has no HH or SNF history. Pt has no [facility] care insurance or [facility] benefits. SW discussed DPOA/ advanced directive,pt declines any information at this time. Pt is currently undergoing palliative chemotherapy and his oncologist is Dr. Laguerre. Pt has capacity for self care due to MD having no concerns and pt is able to follow instructions from RN. SW provided pt with discharge planning checklist booklet and encouraged pt to call with any questions. Pt confirms his brother will provide transport home. SW provided phone number on white board in room. No anticipated discharge needs. SW will continue to follow if needs arise. Assessment:pt who is independent at baseline. Plan:Pt to discharge home when medically stable via POV. No anticipated discharge needs. SW will continue to follow if needs arise. PATRICIA Grant Addendum: 03/17/17 at 0910 by SABA SERRANO SS Amended: Links added.
[2017-03-17] MEDS: Linezolid Inj 600 MG in IV Premix 1 EACH IV SCH (09:51)
--- NOTE | 2017-03-17 10:46 | NUR ---
Social Work-multidisciplinary rounds: Per MD in morning rounds, pt will likely be here another 1-2 more days on IV abx. Anticipate pt to return home at discharge. No anticipated discharge needs. PATRICIA Grant
[2017-03-17] MEDS ORDERED: Morphine ER 30 mg (MS Contin) Tablet PO SCH (12:50)
[2017-03-17] MEDS ORDERED: HYDROmorphone 1 mg/mL Inj IVPUSH PRN (12:50)
--- NOTE | 2017-03-17 18:15 | NUR ---
Pain Continues to have c/o abdominal pain. MD notified of Morphine not helping with patient. New orders for Dilaudid. Also notified MD that patient takes Morphine ER 30mg at home BID. New orders are effective for pain management.
--- NOTE | 2017-03-17 19:15 | PCM.PNMED ---
Subjective Date of Service Mar 17, 2017 Subjective Patient complains of continuing pain. He is on IV antibiotics for aspiration pneumonia however of note his CTA of chest and abdomen was essentially negative for any infectious process including pneumonia. He did develop diarrhea several bowel movements daily after admission. Of note he had been on antibiotics recently for left-sided pneumonia early in February was admitted here for this. Exam Vital Signs Vital Sign - Last Date Time Temp Pulse Resp B/P Pulse Ox O2 Delivery O2 Flow Rate FiO2 03/17/17 14:03 36.7 56 18 107/55 99 Room Air Intake and Output 03/16/17 03/16/17 03/17/17 Cumulative From/Thru 15:00 23:00 07:00 03/14/17 09:01 - 03/17/17 06:25 Intake Total 2268 ml 0 ml 760 ml 26522 ml Output Total 1000 ml 1200 ml 425 ml 8375 ml Balance 1268 ml -1200 ml 335 ml 2700 ml Intake Oral 400 ml 0 ml 300 ml 1940 ml IV Total 1868 ml 460 ml 9135 ml Output Urine Total 1000 ml 1200 ml 425 ml 8375 ml # Voids 2 6 # Bowel Movements 2 2 7 Exam Constitutional: Middle-aged male in mild pain distress Head: Normocephalic and dramatic Chest: Clear to auscultation Cor: Regular rate and rhythm S1-S2 without murmur Abdomen: Soft mild diffuse tenderness no rebound no guarding,Bowels sounds are present Extremities: No pedal edema Neuro: Alert and oriented 3, motor strength is intact bilaterally Psych: Patient is fairly anxious and angry and irritated Lab and Diagnostics Laboratory Tests 72 Hours Test 03/15/17 04:00 03/15/17 12:50 03/16/17 03:00 03/16/17 10:50 White Blood Count 10.5th/mm3 (3.8-10.1) Red Blood Count 2.88mil/mm3 (4.40-5.80) Hemoglobin 7.9g/dL (13.8-17.2) Hematocrit 25.2% (41.0-50.0) Mean Corpuscular Volume 87.5fL (81-100) Mean Corpuscular Hemoglobin 27.4pg (27.0-35.0) Mean Corpuscular Hemoglobin Concent 31.3% (32.0-37.0) Red Cell Distribution Width 20.2% (12.3-15.4) Platelet Count 223bil/L (150-400) Neutrophils (%) (Auto) 89.0% (40-74) Lymphocytes (%) (Auto) 7.0% (14-46) Monocytes (%) (Auto) 2.3% (4-12) Eosinophils (%) (Auto) 1.3% (0-5) Basophils (%) (Auto) 0.2% (0-3) Sodium Level 141mEq/L (134-144) Potassium Level 3.1mEq/L (3.5-5.2) 3.1mEq/L (3.5-5.2) 3.3mEq/L (3.5-5.2) 3.9mEq/L (3.5-5.2) Chloride Level 111mEq/L (97-108) Carbon Dioxide Level 19mmol/L (18-29) Blood Urea Nitrogen 12mg/dL (8-27) Creatinine 0.43mg/dL (0.76-1.27) Estimat Glomerular Filtration Rate 209mL/min (>59) Glucose Level 80mg/dL (60-99) Calcium Level 7.9mg/dL (8.5-10.1) Total Bilirubin 0.5mg/dL (0.0-1.2) Aspartate Amino Transf (AST/SGOT) 32U/L (0-50) Alanine Aminotransferase (ALT/SGPT) 18U/L (0-44) Alkaline Phosphatase 93U/L (25-160) Troponin T 0.010ug/L (0.0-0.011) Total Protein 5.4g/dL (6.4-8.4) Albumin 2.4g/dL (3.4-5.0) Procalcitonin 21.70ng/mL (0.00-0.08) 20.05ng/mL (0.00-0.08) 15.70ng/mL (0.00-0.08) Result Diagram: 03/15/17 0400 03/16/17 1050 X-Rays, CTs and MRIs Head CT: 1. No acute process. 2. Possible left posterior fossa meningioma. This could be further assessed with MRI with and without intravenous contrast, if clinically indicated. Dictated by: Cesar Paredes M.D. on 03/14/2017 at 9:54 Approved by: Cesar Paredes M.D. on 03/14/2017 at 9:56 Chest x-ray is unremarkable. PROCEDURE: CT CHEST, ABDOMEN AND PELVIS WT CONTRAST ([id number]) INDICATIONS: Pancreatic cancer TECHNIQUE: After the administration of oral and intravenous contrast, 5 mm thick sections acquired from the lung apices to the symphysis. 5 mm coronal and sagittal reformats were performed, with additional 7 mm coronal MIP reformats through the lungs. For radiation dose reduction, the following was used: automated exposure control, adjustment of mA and/or kV according to patient size. COMPARISON: [facility], CT, CT ABD PELVIS W CON, 01/01/2017, 10:07. [facility], NM, PET NECK TO MID THIGH STD, 11/03/2016, 8:18. [facility], CT, CT ANGIO CHEST PE, 08/28/2016, 18:30. [facility], CT, CT CHEST ABD PELVIS W CON, 08/18/2015, 23:02. FINDINGS: Image quality: Good CHEST: Lungs and pleura: The there is a small left apical nodular scar approximately 7 or 8 mm is unchanged since 08/28/16 CT. There are 2 adjacent new small irregular nodular densities in the superior segment of the right lower lobe measuring 9 and 4 mm. These could be inflammatory. Less likely would be metastatic. No other lung nodules are seen. The lung bases there patchy areas of subsegmental atelectasis or infiltrate there have changed in pattern since previous imaging. No pleural effusions or pneumothorax. Central and peripheral airways appear patent and normal in caliber. Mediastinum: Heart size is normal. No pericardial effusion. No mediastinal or hilar adenopathy by size criteria. Thoracic aorta and central pulmonary arteries are normal in size. Esophagus is normal in caliber. There is a moderate-sized hiatal hernia. Chest wall: No axillary or supraclavicular adenopathy by size criteria. Thyroid gland suggests a right lobe is mildly enlarged there is a PICC line from the right arm. There is.. The right is 17 mm and the left 22 mm. Based upon the recent PET/CT these are considered benign. The kidneys demonstrate normal size and enhancement, without hydronephrosis. Peritoneum and bowel: Bowel loops demonstrate normal wall thickness and caliber. No free fluid or air. Nodes and vessels: No retroperitoneal or mesenteric adenopathy by size criteria. Aorta and inferior vena cava are normal in size. Miscellaneous: No ventral hernias. PELVIS: Genitourinary: Bladder wall thickness is normal. Prostate is not enlarged. Miscellaneous: No inguinal hernias or adenopathy. Bones: No suspicious bony lesions. No vertebral body compression fractures. IMPRESSION: 1. Patient status post Whipple procedure in the past for pancreatic cancer. No evidence for adenopathy or loss of fat planes or recurrent mass is seen in the region of the pancreas in surgical bed. 2. Bilateral adrenal nodules unchanged in size and on PET/CT considered because of renal activity, benign. 3. Appearance of 2 new small lung nodules in the superior segment of the right lower lobe probably inflammatory. Less likely would be metastatic disease. Followup of this in [address] of the thorax without contrast may be useful. 4. Moderate to large hiatal hernia. Dictated by: Nacho Victor M.D. on 03/16/2017 at 18:26 Approved by: Nacho Victor M.D. on 03/16/2017 at 18:38 Assessment & Plan This is a 67-year-old gentleman who was recently in the hospital for pneumonia. He has pancreas cancer recurrence this and is currently on palliative chemotherapy on and felt well on Wednesday and Wednesday. He was admitted after being found on the floor and needed assistance getting up and was very unstable on his feet and somewhat confused which has now completely resolved. Sepsis, likely 2nd to pneumonia, aspiration verses HCAP. Present on admission. Resolved. - On Admit WBC 12.7 (96% Neut), HR 111, altered mental status., All resolved. - Source of infection is presumed recurrent aspiration verses HCAP pneumonia. POA. - Lactic acid within normal limits. - Procalcitonin trending down. - Blood cx x2 negative. Sputum pending. MRSA swab pending. - Empiric antibiotics with Zosyn for possible aspiration pneumonia and given history of MRSA we will start linezolid. -Patient does not have any infiltrates noted on CTA of chest and not clear what infectious source is. Diarrhea started after admission per patient and . -Check stool PCR -We will DC 1 nasal lid and continue with IV Zosyn. Diabetes mellitus 2, Present on admission. Controlled. - Correctional lispro and 5 Lantus at bedtime - HA1c 6.4 - Holding home glipizide. Pancreatic cancer, recurrent. Present on admission.Stable. The patient is at risk for cholangitis will assess liver function tests. Continues opiate dependence, Present on admission. . We will use morphine for pain. Watch for withdrawal. CAD, Present on admission.Presumed stable. - Troponin negative. - Follow clinically. Acute Volume depletion, Present on admission. Resolved. Full resuscitation High Risk Medications: IV Morphine PRN. He is admitted inpatient status with an anticipated length of stay of greater than 2 nights. VTE Mechanical Devices: Venous Foot Pump Resuscitation Status: CPR: Attempt Resuscitation Time spent 30 minutes Kenzie Dong MD Mar 17, 2017 19:15
[2017-03-17] MEDS: Morphine ER 30 mg (MS Contin) Tablet PO SCH (20:09)
[2017-03-18] MEDS: Piperacillin-Tazo 3.375 Gm Inj 3.375 GM in Dextrose 5% Minibag Plus 50 ML IV SCH ×2 (00:41→08:22)
[2017-03-18] MEDS: Heparin 5,000 Unit/mL Inj SUBQ SCH ×2 (00:42→08:22)
[2017-03-18] MEDS ORDERED: 0.9% Sodium Chloride 100 ML ONE (04:54)
[2017-03-18 05:00] VITALS: BP 111/58; PULSE 47; RESP 18; O2SAT 99
[2017-03-18 05:00] LABS: BASOPHILS % (AUTO) 1.1 % (0-3); EOSINOPHILS % (AUTO) 6.9 % (0-5); MONOCYTES % (AUTO) 3.3 % (4-12); Mean Corpuscular Hemoglobin 27.6 pg (27.0-35.0); Mean Corpuscular Volume 85.9 fL (81-100); NEUTROPHILS % (AUTO) 37.2 % (40-74); Platelet Count 183 bil/L (150-400)
--- NOTE | 2017-03-18 06:08 | NUR ---
Pain Pt reporting pain to abdominal area 10/10 this shift. Medicated pt with extended release morphine, Pt reports tolerable pain levels after medication admin. Call light within reach, frequent rounding.
[2017-03-18] MEDS: Morphine ER 30 mg (MS Contin) Tablet PO SCH (08:23)
--- NOTE | 2017-03-18 08:35 | PROG NOTE ---
[address] [address] PROGRESS NOTE PATIENT: PATTI HUMMEL : 1950 MR#: [id number] ADMIT: 03/14/2017 JOB ID: [id number] DATE: 03/18/2017 SUBJECTIVE: The patient is a 67-year-old gentleman who was hospitalized on March 14, 2017 with suspected sepsis after a syncopal episode. He initially had a systolic blood pressure of 86 when encountered by paramedics. He had a slight fever in the emergency department at 38.2 degrees Centigrade. Subsequent cultures have been negative. CT of the brain after his fall showed no trauma. There were no intracranial bleeds and no masses. He has been on piperacillin/tazobactam empirically, but with negative cultures, antibiotic is being discontinued. He has had loose stools and associated hypokalemia. He is in reasonably good spirits this morning, and is hoping to be discharged later today. No acute pain. His chronic pain is well controlled with his current regimen, which includes MS-Contin 30 mg by mouth every 12 hours. OBJECTIVE: Vitals: T36.6, P 47, R 18, BP 111/58. HEENT: Conjunctivae slightly pale. Mucous membranes moist. Chest clear. No wheezes. No crackles. Cardiac examination: Bradycardic but regular with normal S1, S2. Abdomen: Soft, nontender. Active bowel tones. Extremities: No significant edema. LABORATORIES: WBC 2.7 with 37% neutrophils. Hemoglobin 9.8, hematocrit 30.5%, platelets 183,000. Sodium 143, potassium 3.3, BUN 6, creatinine 0.53. Glucose 81. ASSESSMENT AND PLAN: 1. 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 CT imaging during this hospitalization on March 16, 2017, showed no evidence of active tumor. There was no regional lymphadenopathy. No mass in the pancreas or in the surgical bed. Bilateral adrenal nodules, which were not hypermetabolic on PET imaging, were stable, and appear benign. There were two tiny lesions in the superior segment of the right lower lung, thought to be inflammatory, and a moderately large hiatal hernia. He appears to be in remission. Return to the Cancer Center next week on March 25, 2017 for scheduled chemotherapy with FOLFOX, course 9. Check CBC, differential, platelets, CMP at that time. 2. Two hospitalizations for probable sepsis: All cultures have been negative, although procalcitonin has been elevated. With no source of infection, and no fever since admission, recommend discontinuation of antibiotics. At discharge, he does not need to remain on prophylactic antibiotics, as he is not significantly neutropenic. I believe he was quite hypotensive at the time of admission. In addition, he has evidence of significant bradycardia. Consider outpatient Holter monitoring and/or additional cardiac evaluation as per the hospitalist team. 3. Pain control: The patient's pain is well controlled in hospital. If discharged, please provide a 7-day prescription for MS-Contin 30 mg by mouth twice daily. I will provide additional medication in the Cancer Center next week.
[2017-03-18] MEDS ORDERED: Potassium Chloride 20 mEq SR Tablet PO ONE (08:50)
--- NOTE | 2017-03-18 09:07 | PCM.DIMED ---
Discharge Instructions Date of Service Mar 18, 2017 Dates of Hospitalization Mar 14, 2017 at 12:10 Discharge Diagnosis Discharge Diagnosis Possible sepsis, acute diarrhea, pancreatic cancer Test Results Test Results Laboratory Tests 72 Hours Test 03/16/17 03:00 03/16/17 10:50 03/18/17 04:53 Potassium Level 3.3mEq/L (3.5-5.2) 3.9mEq/L (3.5-5.2) 3.3mEq/L (3.5-5.2) Procalcitonin 15.70ng/mL (0.00-0.08) White Blood Count 2.7th/mm3 (3.8-10.1) Red Blood Count 3.55mil/mm3 (4.40-5.80) Hemoglobin 9.8g/dL (13.8-17.2) Hematocrit 30.5% (41.0-50.0) Mean Corpuscular Volume 85.9fL (81-100) Mean Corpuscular Hemoglobin 27.6pg (27.0-35.0) Mean Corpuscular Hemoglobin Concent 32.1% (32.0-37.0) Red Cell Distribution Width 19.4% (12.3-15.4) Platelet Count 183bil/L (150-400) Neutrophils (%) (Auto) 37.2% (40-74) Lymphocytes (%) (Auto) 51.1% (14-46) Monocytes (%) (Auto) 3.3% (4-12) Eosinophils (%) (Auto) 6.9% (0-5) Basophils (%) (Auto) 1.1% (0-3) Sodium Level 143mEq/L (134-144) Chloride Level 108mEq/L (97-108) Carbon Dioxide Level 23mmol/L (18-29) Blood Urea Nitrogen 6mg/dL (8-27) Creatinine 0.53mg/dL (0.76-1.27) Estimat Glomerular Filtration Rate 164mL/min (>59) Glucose Level 81mg/dL (60-99) Calcium Level 8.4mg/dL (8.5-10.1) Total Bilirubin 0.3mg/dL (0.0-1.2) Aspartate Amino Transf (AST/SGOT) 23U/L (0-50) Alanine Aminotransferase (ALT/SGPT) 16U/L (0-44) Alkaline Phosphatase 87U/L (25-160) Total Protein 5.4g/dL (6.4-8.4) Albumin 2.7g/dL (3.4-5.0) Diet Discharge Diet: Heart Healthy Activity Discharge Activity: Limited until seen by PCP Call your provider Call your provider for: Fever or Chills, Shortness of breath, Chest pain, Excessive diarrhea, Weakness (unilateral) Patient Instructions Follow-up Provider: Haja Laguerre MD Follow-up with PCP in: Other (on March 25 as already scheduled,sooner if problems.) Kenzie Dong MD Mar 18, 2017 09:07
[2017-03-18] MEDS ORDERED: MS30TCR PO (09:10)
--- NOTE | 2017-03-18 09:21 | NUR ---
Social Work: Discharge Data: Pt is on day 4 of hospitalization. EMR reviewed. D/C orders are in. No d/c planning needs at this time. FILM PROJECTOR OPERATOR will continue to follow if needs arise. Assessment: Pt who is independent at baseline, currently capable of self care. Plan: Pt will d/c home via POV today. No d/c planning needs at this time. FILM PROJECTOR OPERATOR will continue to follow if needs arise. PATRICIA Ramsey
--- NOTE | 2017-03-18 13:44 | NUR ---
Discharge D/C to home with . PICC line SL and patent. D/C packet with instructions, care notes and RX discussed and provided. Comfortable with plan of care at this time. Escorted off floor via w/c by family and STATEMENT SERVICES REPRESENTATIVE.
--- NOTE | 2017-03-18 18:09 | PCM.DC.MED ---
Discharge Summary Date of Service Mar 18, 2017 Dates of Hospitalization Date of Hospital Admission Mar 14, 2017 at 12:10 Date of Discharge: Mar 18, 2017 Providers: Admitting Physician: Varun Cook MD Primary Care Physician: Steve Hernandez DO Attending Physician: Kenzie Dong MD Diagnosis at Time of Discharge Diagnosis at Time of Discharge Possible sepsis, acute onset diarrhea, pancreatic cancer Consultations Oncology Procedures XRay, CTs & MRIs Head CT: 1. No acute process. 2. Possible left posterior fossa meningioma. This could be further assessed with MRI with and without intravenous contrast, if clinically indicated. Dictated by: Cesar Paredes M.D. on 03/14/2017 at 9:54 Approved by: Cesar Paredes M.D. on 03/14/2017 at 9:56 Chest x-ray is unremarkable. PROCEDURE: CT CHEST, ABDOMEN AND PELVIS WTIH CONTRAST ([id number]) INDICATIONS: Pancreatic cancer TECHNIQUE: After the administration of oral and intravenous contrast, 5 mm thick sections acquired from the lung apices to the symphysis. 5 mm coronal and sagittal reformats were performed, with additional 7 mm coronal MIP reformats through the lungs. For radiation dose reduction, the following was used: automated exposure control, adjustment of mA and/or kV according to patient size. COMPARISON: [facility], CT, CT ABD PELVIS W CON, 01/01/2017, 10:07. [facility], NM, PET NECK TO MID THIGH STD, 11/03/2016, 8:18. [facility], CT, CT ANGIO CHEST PE, 08/28/2016, 18:30. [facility], CT, CT CHEST ABD PELVIS W CON, 08/18/2015, 23:02. FINDINGS: Image quality: Good CHEST: Lungs and pleura: The there is a small left apical nodular scar approximately 7 or 8 mm is unchanged since 08/28/16 CT. There are 2 adjacent new small irregular nodular densities in the superior segment of the right lower lobe measuring 9 and 4 mm. These could be inflammatory. Less likely would be metastatic. No other lung nodules are seen. The lung bases there patchy areas of subsegmental atelectasis or infiltrate there have changed in pattern since previous imaging. No pleural effusions or pneumothorax. Central and peripheral airways appear patent and normal in caliber. Mediastinum: Heart size is normal. No pericardial effusion. No mediastinal or hilar adenopathy by size criteria. Thoracic aorta and central pulmonary arteries are normal in size. Esophagus is normal in caliber. There is a moderate-sized hiatal hernia. Chest wall: No axillary or supraclavicular adenopathy by size criteria. Thyroid gland suggests a right lobe is mildly enlarged there is a PICC line from the right arm. There is.. The right is 17 mm and the left 22 mm. Based upon the recent PET/CT these are considered benign. The kidneys demonstrate normal size and enhancement, without hydronephrosis. Peritoneum and bowel: Bowel loops demonstrate normal wall thickness and caliber. No free fluid or air. Nodes and vessels: No retroperitoneal or mesenteric adenopathy by size criteria. Aorta and inferior vena cava are normal in size. Miscellaneous: No ventral hernias. PELVIS: Genitourinary: Bladder wall thickness is normal. Prostate is not enlarged. Miscellaneous: No inguinal hernias or adenopathy. Bones: No suspicious bony lesions. No vertebral body compression fractures. IMPRESSION: 1. Patient status post Whipple procedure in the past for pancreatic cancer. No evidence for adenopathy or loss of fat planes or recurrent mass is seen in the region of the pancreas in surgical bed. 2. Bilateral adrenal nodules unchanged in size and on PET/CT considered because of renal activity, benign. 3. Appearance of 2 new small lung nodules in the superior segment of the right lower lobe probably inflammatory. Less likely would be metastatic disease. Followup of this in [address] of the thorax without contrast may be useful. 4. Moderate to large hiatal hernia. Dictated by: Nacho Victor M.D. on 03/16/2017 at 18:26 Approved by: Nacho Victor M.D. on 03/16/2017 at 18:38 Brief History This is a 67-year-old gentleman who was recently in the hospital for pneumonia. He had done well over the last 2 weeks. He has pancreas cancer recurrence this and is currently on palliative chemotherapy. He had chemotherapy on and felt well on Wednesday and Wednesday. This morning he was found on the floor and needed assistance getting up and is very unstable on his feet and somewhat confused. The patient initially declined ambulance however family to call the ambulance he was brought to the ER. Here the patient is quite somnolent and unable to participate in review of systems or subjective. He can answer no questions overall for any information on what happened this morning. In the ER he was found to be volume depleted, hypotensive, somnolent and afebrile. He had a mild leukocytosis and a normal lactic acid. Hospital Course This is a 67-year-old gentleman who was recently in the hospital for pneumonia. He has pancreas cancer recurrence this and is currently on palliative chemotherapy on and felt well on Wednesday and Wednesday. He was admitted after being found on the floor and needed assistance getting up and was very unstable on his feet and somewhat confused which has now completely resolved. Sepsis, likely 2nd to pneumonia, aspiration verses HCAP. Present on admission. Resolved. - On Admit WBC 12.7 (96% Neut), HR 111, altered mental status., All resolved. - Source of infection is presumed recurrent aspiration verses HCAP pneumonia. POA. - Lactic acid within normal limits. - Procalcitonin trending down. - Blood cx x2 negative. Sputum pending. MRSA swab pending. -Patient does not have any infiltrates noted on CTA of chest and not clear what infectious source is. Diarrhea started after admission per patient and . -Check stool PCR which was negative and patient no longer has diarrhea after stopping IV Delilah nasal lid -Oncology's assessment and plan on date of discharge is listed below: ASSESSMENT AND PLAN: 1. 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 CT imaging during this hospitalization on March 16, 2017, showed no evidence of active tumor. There was no regional lymphadenopathy. No mass in the pancreas or in the surgical bed. Bilateral adrenal nodules, which were not hypermetabolic on PET imaging, were stable, and appear benign. There were two tiny lesions in the superior segment of the right lower lung, thought to be inflammatory, and a moderately large hiatal hernia. He appears to be in remission. Return to the Cancer Center next week on March 25, 2017 for scheduled chemotherapy with FOLFOX, course 9. Check CBC, differential, platelets, CMP at that time. 2. Two hospitalizations for probable sepsis: All cultures have been negative, although procalcitonin has been elevated. With no source of infection, and no fever since admission, recommend discontinuation of antibiotics. At discharge, he does not need to remain on prophylactic antibiotics, as he is not significantly neutropenic. I believe he was quite hypotensive at the time of admission. In addition, he has evidence of significant bradycardia. Consider outpatient Holter monitoring and/or additional cardiac evaluation as per the hospitalist team. 3. Pain control: The patient's pain is well controlled in hospital. If discharged, please provide a 7-day prescription for MS-Contin 30 mg by mouth twice daily. I will provide additional medication in the Cancer Center next week. Diabetes mellitus 2, Present on admission. Controlled. - Correctional lispro and 5 Lantus at bedtime - HA1c 6.4 - Holding home glipizide. Pancreatic cancer, recurrent. Present on admission.Stable. The patient is at risk for cholangitis will assess liver function tests. Continues opiate dependence, Present on admission. . We will use morphine for pain. Watch for withdrawal. CAD, Present on admission.Presumed stable. - Troponin negative. - Follow clinically. Acute Volume depletion, Present on admission. Resolved. Full resuscitation High Risk Medications: IV Morphine PRN. He is admitted inpatient status with an anticipated length of stay of greater than 2 nights. Exam Vital Signs (Last) Date Time Temp Pulse Resp B/P Pulse Ox O2 Delivery O2 Flow Rate FiO2 03/18/17 05:00 36.6 47 18 111/58 99 Room Air Exam Constitutional: Middle-aged male in no acute distress Head: Normocephalic atraumatic Chest: Clear to auscultation Cor: Regular rate and rhythm S1-S2 Abdomen: Soft mild diffuse tenderness particularly in the upper areas no rebound no guarding Extremities: No pedal edema Neuro: Alert and oriented 3, motor strength is intact bilaterally Test 03/14/17 09:30 03/14/17 11:48 03/14/17 13:25 03/14/17 15:00 Lactic Acid Level 1.9mmol/L (0.4-2.0) Magnesium Level 1.7mg/dL (1.6-2.6) Hold [place] Top Tube Received (Received) Urine Legionella pneumophilia Ag Negative (Negative) Urine Color Yellow (YELLOW) Urine Appearance Clear (CLEAR,HAZY) Urine pH 5.5 (5.0-8.0) Urine Specific [place] 1.010 (1.003-1.035) Urine Protein Negativemg/dL (NEG,TRACE) Urine Glucose (UA) Negativemg/dL (NEGATIVE) Urine Ketones Negativemg/dL (NEGATIVE) Urine Occult Blood Negative (NEGATIVE) Urine Nitrite Negative (NEGATIVE) Urine Bilirubin Negative (NEGATIVE) Urine Urobilinogen Normalmg/dL (NORMAL) Urine Leukocyte Esterase Negative (NEGATIVE) Urine RBC 0-2/hpf (0-2) Urine WBC 0-5/hpf (0-5) Urine Epithelial Cells Occasional/hpf (NONE-MOD) Urine Crystals None seen (NONE SEEN) Urine Bacteria None/hpf (NONE-FEW) Urine Hyaline Casts None/lpf (NONE) Urine Granular Casts None seen (NONE SEEN) Urine Waxy Casts None seen (NONE SEEN) Urine Red Blood Cell Casts None seen (NONE SEEN) Urine White Blood Cell Casts None seen (NONE SEEN) Urine Mucus None seen (None Seen) Urine Trichomonas None seen (NONE SEEN) Urine Yeast None (NONE SEEN) Urinalysis Comment None Urine Culture Reflexed Not indicated Test 03/15/17 04:00 03/16/17 03:00 03/18/17 04:53 Troponin T 0.010ug/L (0.0-0.011) Procalcitonin 15.70ng/mL (0.00-0.08) White Blood Count 2.7th/mm3 (3.8-10.1) Red Blood Count 3.55mil/mm3 (4.40-5.80) Hemoglobin 9.8g/dL (13.8-17.2) Hematocrit 30.5% (41.0-50.0) Mean Corpuscular Volume 85.9fL (81-100) Mean Corpuscular Hemoglobin 27.6pg (27.0-35.0) Mean Corpuscular Hemoglobin Concent 32.1% (32.0-37.0) Red Cell Distribution Width 19.4% (12.3-15.4) Platelet Count 183bil/L (150-400) Neutrophils (%) (Auto) 37.2% (40-74) Lymphocytes (%) (Auto) 51.1% (14-46) Monocytes (%) (Auto) 3.3% (4-12) Eosinophils (%) (Auto) 6.9% (0-5) Basophils (%) (Auto) 1.1% (0-3) Sodium Level 143mEq/L (134-144) Potassium Level 3.3mEq/L (3.5-5.2) Chloride Level 108mEq/L (97-108) Carbon Dioxide Level 23mmol/L (18-29) Blood Urea Nitrogen 6mg/dL (8-27) Creatinine 0.53mg/dL (0.76-1.27) Estimat Glomerular Filtration Rate 164mL/min (>59) Glucose Level 81mg/dL (60-99) Calcium Level 8.4mg/dL (8.5-10.1) Total Bilirubin 0.3mg/dL (0.0-1.2) Aspartate Amino Transf (AST/SGOT) 23U/L (0-50) Alanine Aminotransferase (ALT/SGPT) 16U/L (0-44) Alkaline Phosphatase 87U/L (25-160) Total Protein 5.4g/dL (6.4-8.4) Albumin 2.7g/dL (3.4-5.0) Discharge Medications Discharge Medications Aspirin (Aspirin) 81 Mg Tablet 81 MG PO DAILY (Reported) Atorvastatin (Lipitor) 40 Mg Tablet 40 MG PO DAILY (Reported) Budesonide/Formoterol 160-4.5 mcg Inh (Symbicort 160-4.5 mcg Inh) 120 Puff Inhaler 2 PUFF INHALATION BID (Reported) Clopidogrel (Clopidogrel) 75 Mg Tablet 75 MG PO DAILY (Reported) Glipizide (Glipizide) 5 Mg Tablet 5 MG PO DAILY (Reported) Insulin Glargine (Lantus U100 Insulin Vial) 100 Unit/Ml Vial 45 UNIT SUBQ DAILY (Reported) Morphine Sulfate ER (MS Contin) 30 Mg Tablet.er 30 MG PO Q12H (Reported) Morphine Sulfate ER (MS Contin) 30 Mg Tablet.er 30 MG PO BID Prescribed by: KENZIE DONG MD Niacin (Niacin) 1,000 Mg Tablet.er 500 MG PO HS (Reported) Ranitidine (Ranitidine) 300 Mg Tablet 300 MG PO HS (Reported) Tiotropium [place] (Spiriva) 18 Mcg Cap.w.dev 1 PUFF INH DAILY (Reported) oxyCODONE (oxyCODONE) 10 Mg Tablet 2 TAB PO Q4H (Reported) As needed Albuterol HFA (Proair HFA) 8.5 Gm Hfa.aer.ad 2 PUFF INH Q4-6H PRN PRN For Shortness of Breath (Reported) Albuterol Neb Soln (Albuterol Neb Soln) 2.5 Mg/3 Ml Vial.neb 2.5 MG INHALATION QID PRN PRN For Shortness of Breath (Reported) Insulin Human Lispro (HumaLOG U100 Insulin Vial) 100 Unit/Ml Unit 1 UNIT SUBQ Q6H PRN PRN High Blood sugar (Reported) Check blood sugars before meals and at bedtime. Use correction factor only before meals. Blood Sugar Lispro Correction: <151, 0 units; 151-200, 1 unit; 201-250, 2 units; 251-300, 3 units; 301-350, 4 units; 351-, 400, 5 units. Over 400 call MD. Ondansetron ODT (Zofran ODT) 4 Mg Tablet 4 MG PO Q4H PRN PRN For Nausea Prescribed by: SHARIF CRAIG DO diphenhydrAMINE HCl (Benadryl) 25 Mg Capsule 25 MG PO Q6H PRN PRN For Itching ( Reported) Followup Plan Disposition: Home Discharge Diet: Heart Healthy Discharge Activity: Limited until seen by PCP Follow-up Provider: Haja Laguerre MD Follow-up with PCP in: Other (on March 25 as already scheduled,sooner if problems.) Kenzie Dong MD Mar 18, 2017 18:09
== END 2017-03-18 12:54 | disposition home or self-care (01) | DRG 871 ==
LOC: SED 09:01 → PCC 12:10 → MPC 03-16 15:03
PROVIDERS: ADMIT Hospitalist; ATTEND Specialist
DX: A41.9 Sepsis, unspecified organism (principal); J69.0 Pneumonitis due to inhalation of food and vomit; F11.20 Opioid dependence, uncomplicated; C25.9 Malignant neoplasm of pancreas, unspecified; J44.9 Chronic obstructive pulmonary disease, unspecified; K21.9 Gastro-esophageal reflux disease without esophagitis; E78.5 Hyperlipidemia, unspecified; I10 Essential (primary) hypertension; R27.0 Ataxia, unspecified; I25.10 Atherosclerotic heart disease of native coronary artery without angina pectoris; E87.6 Hypokalemia; Z87.891 Personal history of nicotine dependence; I25.2 Old myocardial infarction; Z79.82 Long term (current) use of aspirin; Z79.4 Long term (current) use of insulin; Z79.51 Long term (current) use of inhaled steroids